=== PATIENT | female | born 1995 | race African-American/Black ===

== ENCOUNTER 2018-08-31 08:22 | Emergency (ER) | payer SELFPAY ==
[~2018-08-31] VITALS: Ht 154.9 cm; Wt 79.4 kg
--- OUTSIDE RECORDS SUMMARY | 2018-08-31 08:26 | XMS REPORT | Clinical Summary ---
Author Author [facility] Organization [facility] Address Unknown Phone Unavailable Care Team Providers Care Pressure Control Supervisor Name Role Phone PCP Unavailable Allergies Comments Active Allergy Reactions Severity Noted Date HIVES THROAT SWELLING Penicillins Hives High 06/11/2010 Medications End Date Status Medication Sig Dispensed Refills Start Date Active divalproex (DEPAKOTE) 500 Take 500 mg 0 mg 24 hr delayed released by mouth tablet daily. Active Divalproex 125 mg Take 125 mg 0 sprinkle capsule by mouth 2 times daily. Active ibuprofen (MOTRIN) 800 mg Take 1 tablet 30 tablet 0 tabletIndications: Right by mouth 7 lower quadrant abdominal every 8 hours pain as needed for Pain. Active levonorgestrel-ethinyl Take 1 tablet 28 Each 2 estradiol (LUTERA, 28,) by mouth 8 0.1-20 mg-mcg daily As tabletIndications: directed on Irregular periods the pouch. Active ferrous sulfate (FEOSOL) Take 1 tablet 30 tablet 0 325 mg (65 mg iron) by mouth 8 tabletIndications: daily (with Irregular periods breakfast) While you are bleeding. Active Problems Problem Noted Date Irregular periods 06/23/2018 Pelvic pain in female 06/05/2018 Urinary tract infection 12/09/2011 Behavioral problem 11/19/2010 Pseudoseizure Mood disorder Encounters Care Team Description Date Type Specialty Adali Muro PA Irregular periods (Primary Dx) 06/23/2018 Emergency Emergency Medicine Pelvic pain in female (Primary Dx) 06/05/2018 Emergency Emergency Medicine - 06/06/2018 after 08/30/2017 Immunizations Name Dates Previously Given Next Due DTP Diphtheria, Tetanus, 07/20/1996, 02/09/1996, 1995 Pertussis Vaccine Hepatitis B Vaccine 02/09/1996, 1995 Hib Haemophilus 07/20/1996, 02/09/1996, 1995 Influenzae Type B MMR Measles, Mumps, 07/20/1996 Rubella Vaccine Polio OPV 02/09/1996, 1995 Family History Medical History Relation Name Comments Other none apply Relation Name Status Comments Brother Alive Brother Alive Brother Alive Father Alive Maternal Grandfather Alive Maternal Grandmother Alive Mother Alive Paternal Grandfather Paternal Grandmother Social History Date Tobacco Use Types Packs/Day Years Used Never Smoker Alcohol Use Drinks/Week oz/Week Comments No Currently Estimated Date of Delivery Comments Yes Sex Assigned at Date Recorded Not on file Industry Job Start Date Occupation Not on file Not on file Not on file Travel End Travel History Travel Start No recent travel history available. Last Filed Vital Signs Time Taken Vital Sign Reading 06/23/2018 4:10 PM CDT Blood Pressure 128/77 06/23/2018 4:10 PM CDT Pulse 85 06/23/2018 4:10 PM CDT Temperature 36.7 C (98.1 F) 06/23/2018 4:10 PM CDT Respiratory Rate 18 06/23/2018 4:10 PM CDT Oxygen Saturation 100% - Inhaled Oxygen - Concentration - Weight - - Height - - Body Mass Index - Plan of Treatment Health Maintenance Due Date Last Done Comments Cervical Cancer Scrn (3 2016 Yrs) IMM Influenza Seasonal 06/01/2018 Oct to October (>/=19 yrs) Procedures Comments Procedure Name Priority Date/Time Associated Diagnosis TEST STAT 06/23/2018 4:26 PM CDT UA CHEMISTRIES STAT 06/23/2018 4:26 PM CDT BMP POC Routine 06/23/2018 3:00 PM CDT TYPE AND SCREEN STAT 06/23/2018 2:20 PM CDT CBC/DIFF STAT 06/23/2018 2:20 PM CDT HIV-1/HIV-2 ROUTINE STAT 06/23/2018 SCREENING 2:20 PM CDT U/S PELVIS LTD NON-OB STAT 06/05/2018 Pelvic pain in female 7:05 PM CDT U/S TRANSVAGINAL STAT 06/05/2018 Pelvic pain in female 7:05 PM CDT BMP POC Routine 06/05/2018 2:19 PM CDT LIPASE STAT 06/05/2018 1:59 PM CDT LIVER PROFILE STAT 06/05/2018 1:59 PM CDT CBC/DIFF STAT 06/05/2018 1:59 PM CDT UA CHEMISTRIES STAT 06/05/2018 1:59 PM CDT HIV-1/HIV-2 ROUTINE STAT 06/05/2018 SCREENING 1:59 PM CDT HCG, QUANTITATIVE STAT 06/05/2018 1:59 PM CDT TYPE AND SCREEN STAT 06/05/2018 1:24 PM CDT after 08/30/2017 Results * UA CHEMISTRIES (06/23/2018 4:26 PM CDT) Only the most recent of 2 results within the time period is included. Color Yellow BT [facility] 3 Clarity Hazy [facility] 3 Spec Echo 1.019 1.001 - 1.035 BT [facility] 3 pH 6.0 5 - 8 [facility] 3 Protein 2+ (A) NEG BT [facility] 3 Glucose Negative NEG BT [facility] 3 Ketone 1+ (A) NEG BT [facility] 3 Bilirubin Negative NEG BT [facility] 3 Nitrate Negative NEG BT [facility] 3 Urobilinogen <1.0 0.2 - 1.0 EU/dL BT [facility] 3 Leukocyte Negative NEG BT [facility] 3 Blood 3+ (A) NEG BT [facility] 3 RBC >182 (H) 0 - 4 /HPF BT [facility] 3 WBC 16 (H) 0 - 5 /HPF BT [facility] 3 Epithelial Cell 5 /HPF BT [facility] 3 Mucous Present BT [facility] 3 Specimen Urine Performing Organization Address City/State/Zipcode Phone Number MISYS [facility] 3 * TEST (06/23/2018 4:26 PM CDT) Negative BT [facility] 3 Specimen Urine Performing Organization Address [facility] [place] Phone Number MISYS [facility] 3 * BMP POC (06/23/2018 3:00 PM CDT) Only the most recent of 2 results within the time period is included. CO2 POC 27 21 - 32 mmol/L BT [facility] 1 Chloride POC 101 98 - 107 mmol/L BT [facility] 1 Potassium POC 3.9 3.50 - 5.10 mmol/L BT [facility] 1 Sodium POC 140 136 - 145 mmol/L BT [facility] 1 Glucose POC 77 74 - 106 mg/dL [facility] 1 Urea Nitrogen 8 7 - 18 mg/dL [facility] POC 1 Creatinine POC 0.7 0.6 - 1.3 mg/dL BT [facility] 1 Calcium Ionized 1.18 1.15 - 1.29 mmol/L BT [facility] POC 1 Hemoglobin POC 16.7 (H) 12.0 - 16.0 g/dL BT [facility] 1 Hematocrit POC 49.0 (H) 37.0 - 47.0 % [facility] 1 GFR, Estimated >60 mL/min/1.73 m2 BT [facility] 1 GFR, Estim, >60 mL/min/1.73 m2 [facility] Afr-Am 1 Performing Organization Address [facility] [place] Phone Number MISYS [facility] 1 * HIV-1/HIV-2 ROUTINE SCREENING (06/23/2018 2:20 PM CDT) Only the most recent of 2 results within the time period is included. HIV-1/HIV-2 Negative NEG BT [facility] 4 Performing Organization Address [facility] [place] Phone Number MISYS BT [facility] 4 * CBC/DIFF (06/23/2018 2:20 PM CDT) Only the most recent of 2 results within the time period is included. WBC 4.6 4.5 - 11.0 K/uL BT [facility] 2 RBC 4.37 4.20 - 5.40 M/uL BT [facility] 2 Hemoglobin 13.0 12.0 - 16.0 g/dL BT [facility] 2 Hematocrit 39.2 37.0 - 47.0 % BT [facility] 2 MCV 90 82 - 92 fL BT [facility] 2 MCH 29.7 27.0 - 32.0 pg BT [facility] 2 MCHC 33.2 32.0 - 36.0 g/dL BT [facility] 2 RDW 44.0 36.4 - 46.3 fL BT [facility] 2 Platelet 332 150 - 400 K/uL BT [facility] 2 Mean Platelet 11.1 9.4 - 12.4 fL [facility] Volume 2 Percent NRBC 0.0 BT [facility] 2 Absolute NRBC 0.00 BT [facility] 2 Neutrophil 49.2 34.0 - 70.0 % BT [facility] 2 Lymphocyte 42.2 20.0 - 50.0 % BT [facility] 2 Monocyte 7.1 5.0 - 12.0 % BT [facility] 2 Eosinophil 0.9 0.7 - 5.0 % BT [facility] 2 Basophil 0.4 0.1 - 1.2 % BT [facility] 2 Pct Immat Gran 0.2 0.0 - 0.5 BT [facility] 2 Neutrophil, Abs 2.28 1.56 - 6.13 K/uL BT [facility] 2 Lymphocyte, Abs 1.96 1.18 - 3.74 K/uL BT [facility] 2 Monocyte, Abs 0.33 0.24 - 0.36 K/uL BT [facility] 2 Eosinophil, Abs 0.04 0.04 - 0.36 K/uL BT [facility] 2 Basophil, Abs 0.02 0.01 - 0.08 K/uL BT [facility] 2 Absol Immat 0.01 0.00 - 0.03 K/uL BT [facility] Gran 2 Specimen Blood Performing Organization Address City/State/Zipcode Phone Number MISYS [facility] 2 * U/S PELVIS LTD NON-OB (06/05/2018 7:05 PM CDT) Impressions Performed At IMPRESSION: SMS Unremarkable pelvic ultrasound exam. Dictated By: Brandon Duarte MD, 06/05/2018 7:26 PM I have reviewed the study and agree with the findings in this report. Signed By: Igor Liu MD, 06/05/2018 8:24 PM Narrative Performed At EXAM: Transabdominal and Transvaginal Pelvic Ultrasound SMS INDICATION: pelvic pain COMPARISON: Pelvic ultrasound 10/22/2016 TECHNIQUE: Grayscale transverse and sagittal transabdominal and transvaginal images were obtained of the pelvis. Transvaginal imaging was medically necessary to better evaluate the endometrium and the adnexa. CLINICAL HISTORY: 22 year old A2; last menstrual period: 2015. FINDINGS: Uterus Orientation: Normal Size: 6.7 x 2.6 x 4.1 cm, Normal Mass: None Cervix: Normal Endometrium: Thickness: 0.7 cm, likely cyclical. Appearance:Homogeneous echotexture without focal thickening. Right ovary: Size:4.4 x 2.7 x 2.2 cm, calculated volume of 14 cc Mass/Cyst: None Peripherally oriented follicles Left ovary: Size: 4.2 x 2.8 x 2.7 cm, calculated volume of 17 cc Mass/Cyst: None Peripherally oriented follicles Adnexa: Persistent 0.8 cm right and 0.7 cm left paraovarian cysts. Cul-de-sac: No free fluid Procedure Note Interface, Rad/Mammog In - 06/05/2018 8:29 PM CDT EXAM: Transabdominal and Transvaginal Pelvic Ultrasound INDICATION: pelvic pain COMPARISON: Pelvic ultrasound 10/22/2016 TECHNIQUE: Grayscale transverse and sagittal transabdominal and transvaginal images were obtained of the pelvis. Transvaginal imaging was medically necessary to better evaluate the endometrium and the adnexa. CLINICAL HISTORY: 22 year old A2; last menstrual period: 2015. FINDINGS: Uterus Orientation: Normal Size: 6.7 x 2.6 x 4.1 cm, Normal Mass: None Cervix: Normal Endometrium: Thickness: 0.7 cm, likely cyclical. Appearance: Homogeneous echotexture without focal thickening. Right ovary: Size: 4.4 x 2.7 x 2.2 cm, calculated volume of 14 cc Mass/Cyst: None Peripherally oriented follicles Left ovary: Size: 4.2 x 2.8 x 2.7 cm, calculated volume of 17 cc Mass/Cyst: None Peripherally oriented follicles Adnexa: Persistent 0.8 cm right and 0.7 cm left paraovarian cysts. Cul-de-sac: No free fluid IMPRESSION IMPRESSION: Unremarkable pelvic ultrasound exam. Dictated By: Brandon Duarte MD, 06/05/2018 7:26 PM I have reviewed the study and agree with the findings in this report. Signed By: Igor Liu MD, 06/05/2018 8:24 PM Performing Organization Address City/State/Zipcode Phone Number SMS * U/S TRANSVAGINAL (06/05/2018 7:05 PM CDT) Impressions Performed At IMPRESSION: SMS Unremarkable pelvic ultrasound exam. Dictated By: Brandon Duarte MD, 06/05/2018 7:26 PM I have reviewed the study and agree with the findings in this report. Signed By: Igor Liu MD, 06/05/2018 8:24 PM Narrative Performed At EXAM: Transabdominal and Transvaginal Pelvic Ultrasound SMS INDICATION: pelvic pain COMPARISON: Pelvic ultrasound 10/22/2016 TECHNIQUE: Grayscale transverse and sagittal transabdominal and transvaginal images were obtained of the pelvis. Transvaginal imaging was medically necessary to better evaluate the endometrium and the adnexa. CLINICAL HISTORY: 22 year old A2; last menstrual period: 2015. FINDINGS: Uterus Orientation: Normal Size: 6.7 x 2.6 x 4.1 cm, Normal Mass: None Cervix: Normal Endometrium: Thickness: 0.7 cm, likely cyclical. Appearance:Homogeneous echotexture without focal thickening. Right ovary: Size:4.4 x 2.7 x 2.2 cm, calculated volume of 14 cc Mass/Cyst: None Peripherally oriented follicles Left ovary: Size: 4.2 x 2.8 x 2.7 cm, calculated volume of 17 cc Mass/Cyst: None Peripherally oriented follicles Adnexa: Persistent 0.8 cm right and 0.7 cm left paraovarian cysts. Cul-de-sac: No free fluid Procedure Note Interface, Rad/Mammog In - 06/05/2018 8:29 PM CDT EXAM: Transabdominal and Transvaginal Pelvic Ultrasound INDICATION: pelvic pain COMPARISON: Pelvic ultrasound 10/22/2016 TECHNIQUE: Grayscale transverse and sagittal transabdominal and transvaginal images were obtained of the pelvis. Transvaginal imaging was medically necessary to better evaluate the endometrium and the adnexa. CLINICAL HISTORY: 22 year old A2; last menstrual period: 2015. FINDINGS: Uterus Orientation: Normal Size: 6.7 x 2.6 x 4.1 cm, Normal Mass: None Cervix: Normal Endometrium: Thickness: 0.7 cm, likely cyclical. Appearance: Homogeneous echotexture without focal thickening. Right ovary: Size: 4.4 x 2.7 x 2.2 cm, calculated volume of 14 cc Mass/Cyst: None Peripherally oriented follicles Left ovary: Size: 4.2 x 2.8 x 2.7 cm, calculated volume of 17 cc Mass/Cyst: None Peripherally oriented follicles Adnexa: Persistent 0.8 cm right and 0.7 cm left paraovarian cysts. Cul-de-sac: No free fluid IMPRESSION IMPRESSION: Unremarkable pelvic ultrasound exam. Dictated By: Brandon Duarte MD, 06/05/2018 7:26 PM I have reviewed the study and agree with the findings in this report. Signed By: Igor Liu MD, 06/05/2018 8:24 PM Performing Organization Address City/State/[employer] Phone Number SMS * HCG, QUANTITATIVE (06/05/2018 1:59 PM CDT) hCG, <1 <5 mIU/mL [facility] Quantitative 1 Specimen Blood Performing Organization Address City/[facility] Phone Number [facility] 1 * LIVER PROFILE (06/05/2018 1:59 PM CDT) T Protein 8.0 6.0 - 8.3 g/dL BT [facility] 1 Albumin 4.9 3.7 - 5.3 g/dL BT [facility] 1 T Bilirubin 0.3 0.2 - 1.2 mg/dL BT [facility] 1 Alk Phos 72 34 - 104 U/L BT [facility] 1 AST 13 13 - 39 U/L BT [facility] 1 ALT 9 7 - 52 U/L BT [facility] 1 D Bilirubin 0.1 0.0 - 0.2 mg/dL BT [facility] 1 Specimen Blood Performing Organization Address City/State/[facility] Phone Number [facility] 1 * LIPASE (06/05/2018 1:59 PM CDT) Lipase 34 11 - 82 U/L BT [facility] 1 Specimen Blood Performing Organization Address City/[facility] Phone Number [facility] 1 after 08/30/2017 Insurance Type Payer Benefit Subscriber ID Effective Phone Address Plan / Dates Group [employer] SELF-PAY HC xxxxxxxxx 2015- [phone] [address] [place] [address]
--- OUTSIDE RECORDS SUMMARY | 2018-08-31 08:26 | XMS REPORT | Clinical Summary ---
Author Author [facility] Organization [facility] Address Unknown Phone Unavailable Care Team Providers Care Truck Sales Representative Name Role Phone Provider, Unknown PCP Unavailable Allergies Comments Active Allergy Reactions Severity Noted Date Penicillins 07/02/2017 Medications End Date Status Medication Sig Dispensed Refills Start Date Active metoprolol tartrate Take 25 mg by 0 (LOPRESSOR) 25 mg tablet mouth 2 (two) times a day. Active fludrocortisone 0.1 mg Take 0.1 mg 0 tablet by mouth daily. 06/06/2018 levETIRAcetam (KEPPRA) Take 1 tablet 60 tablet 0 1000 MG tablet (1,000 mg 8 total) by mouth 2 (two) times a day for 30 days. Active Problems Not on file Encounters Care Team Description Date Type Specialty Rosangela Barillas MD Seizure (Primary Dx) 05/07/2018 Emergency Emergency Medicine after 08/30/2017 Social History Date Tobacco Use Types Packs/Day Years Used Never Smoker Alcohol Use Drinks/Week oz/Week Comments Yes 1 Shots of 0.6 liquor Sex Assigned at Date Recorded Not on file Industry Job Start Date Occupation Not on file Not on file Not on file Travel End Travel History Travel Start No recent travel history available. Last Filed Vital Signs Time Taken Vital Sign Reading 05/07/2018 4:52 PM CDT Blood Pressure 128/66 05/07/2018 4:52 PM CDT Pulse 89 05/07/2018 2:17 PM CDT Temperature 37 C (98.6 F) 05/07/2018 4:52 PM CDT Respiratory Rate 18 05/07/2018 4:52 PM CDT Oxygen Saturation 99% - Inhaled Oxygen - Concentration - Weight - 05/07/2018 2:17 PM CDT Height 154.9 cm (5' 1") - Body Mass Index - Plan of Treatment Health Maintenance Due Date Last Done Comments CHLAMYDIA SCREENING 2011 CERVICAL CANCER SCREENING 2016 INFLUENZA VACCINE 04/01/2018 Procedures Comments Procedure Name Priority Date/Time Associated Diagnosis CT HEAD WO CONTRAST STAT 05/07/2018 3:03 PM CDT ZZESTIMATED GFR STAT 05/07/2018 2:47 PM CDT HCG QUALITATIVE, SERUM STAT 05/07/2018 SCREEN 2:47 PM CDT BASIC METABOLIC PANEL STAT 05/07/2018 2:47 PM CDT after 08/30/2017 Results * CT Head Wo Contrast (05/07/2018 3:03 PM CDT) Narrative Performed At EXAMINATION:[facility] WAS PERFORMED WITH ITERATIVE RECONSTRUCTION TECHNIQUE AND/OR AUTOMATED EXPOSURE CONTROL TO REDUCE RADIATION DOSE. CLINICAL HISTORY:new onset seizure COMPARISON:CT brain July 02, 2017. FINDINGS: 1. There is no acute intracranial abnormality. Specifically there is no intracranial hemorrhage, mass effect or acute infarction. 2.There is no intracranial abnormality. 3.There is minimal mucosal thickening in the ethmoid and maxillary sinuses. IMPRESSION: No significant abnormality demonstrated nor change from the prior study. [facility]-[id number] Procedure Note Interface, Radiology Results Incoming - 05/07/2018 3:13 PM CDT EXAMINATION: CT HEAD WO CONTRAST CT IMAGING WAS PERFORMED WITH ITERATIVE RECONSTRUCTION TECHNIQUE AND/OR AUTOMATED EXPOSURE CONTROL TO REDUCE RADIATION DOSE. CLINICAL HISTORY: new onset seizure COMPARISON: CT brain July 02, 2017. FINDINGS: 1. There is no acute intracranial abnormality. Specifically there is no intracranial hemorrhage, mass effect or acute infarction. 2. There is no intracranial abnormality. 3. There is minimal mucosal thickening in the ethmoid and maxillary sinuses. IMPRESSION: No significant abnormality demonstrated nor change from the prior study. [facility]-[id number] Performing Organization Address City/State/Zipcode Phone Number [facility] [address] [place] [address] * Estimated GFR (05/07/2018 2:47 PM CDT) GFR Non Af Amer 89 mL/min/1.73 m2 [facility] DEPARTMENT OF PATHOLOGY AND GENOMIC MEDICINE GFR Af Amer >90 mL/min/1.73 m2 [facility] DEPARTMENT OF Comment: PATHOLOGY AND Chronic kidney disease: <60 GENOMIC MEDICINE mL/min/1.73m2 Kidney failure: <15 mL/min/1.73m2 The estimated GFR is calculated from the IDMS-traceable Modification of Diet in Renal Disease Equation. The accuracy of the calculation is poor when the creatinine is normal. Calculated values >90 mL/min/1.73m2 are not reported. This equation has not been validated in children (<18 years), women, the elderly (>70 years), or ethnic groups other than Caucasians and Americans. Specimen Plasma specimen Performing Organization Address City/[facility] [place] [address] PATHOLOGY AND [facility] * hCG qualitative, serum screen (05/07/2018 2:47 PM CDT) hCG qualitative, serum Negative [facility] DEPARTMENT OF Comment: PATHOLOGY AND The manufacturers stated [facility] sensitivity of HcG test for serum is >/=10 mIU/ml and urine is >/=20mIU/ml. Specimen Blood Performing Organization Address [facility] [place] [address] PATHOLOGY AND [facility] * Basic metabolic panel (05/07/2018 2:47 PM CDT) Sodium 140 135 - 150 mEq/L [facility] DEPARTMENT OF PATHOLOGY AND [facility] Potassium 3.8 3.5 - 5.0 mEq/L [facility] DEPARTMENT OF PATHOLOGY AND [facility] Chloride 99 98 - 112 mEq/L [facility] DEPARTMENT OF PATHOLOGY AND [facility] CO2 27 24 - 31 mmol/L [facility] DEPARTMENT OF PATHOLOGY AND [facility] Anion gap 14@ANIO 7 - 15 mEq/L [facility] DEPARTMENT OF PATHOLOGY AND [facility] BUN 9 7 - 18 mg/dL [facility] DEPARTMENT OF PATHOLOGY AND [facility] Creatinine 0.80 0.50 - 0.90 mg/dL [facility] DEPARTMENT OF PATHOLOGY AND [facility] Glucose 79 65 - 100 mg/dL [facility] DEPARTMENT OF PATHOLOGY AND [facility] Calcium 10.0 8.3 - 10.2 mg/dL [facility] OF PATHOLOGY AND [facility] Specimen Plasma specimen Performing Organization Address City/[facility] [place] [address] PATHOLOGY AND [facility] after 08/30/2017 Advance Directives Patient has advance care planning documents on file. For more information, nolvia quinones contact: Wood Boyle [address] [place] [place] [address]
--- OUTSIDE RECORDS SUMMARY | 2018-08-31 08:27 | XMS REPORT | CCD ---
Author Author Auto Generated Organization [facility] Address Unknown Phone Unavailable Care Team Providers Care Sleeping Bag Filler Name Role Phone Aisha Recio CP Allergies, Adverse Reactions, Alerts Substance Reaction Status penicillins Active Problem List Condition Effective Dates Status Seizure Active Seizure Active Medications Medication Instructions Start Date End Date Status Celexa Substitution Allowed 09/24/2011 Ordered Depakote Substitution Allowed 09/24/2011 Ordered Vital Signs Most recent to oldest [Reference Range]: 1 2 3 Height 157.48 cm (09/24/2011 11:06:00) Temperature Oral [96.8-99.7 DegF] 98.0 DegF (09/24/2011 14:02:00) Temperature Oral [96.4-99.1 DegF] 99.1 DegF (09/24/2011 12:35:00) 98.2 DegF (09/24/2011 11:06:00) Systolic Blood Pressure [90-138 mmHg] 141 mmHg *HI* (09/24/2011 17:52:00) 138 mmHg (09/24/2011 14:02:00) Systolic Blood Pressure [90-140 mmHg] 142 mmHg *HI* (09/24/2011 12:35:00) Diastolic Blood Pressure [45-84 mmHg] 85 mmHg *HI* (09/24/2011 17:52:00) 77 mmHg (09/24/2011 14:02:00) Diastolic Blood Pressure [60-90 mmHg] 78 mmHg (09/24/2011 12:35:00) Respiratory Rate [14-20 BRMIN] 18 BRMIN (09/24/2011 17:52:00) 22 BRMIN *HI* (09/24/2011 14:02:00) 18 BRMIN (09/24/2011 12:35:00) Peripheral Pulse Rate [55-90 bpm] 75 bpm (09/24/2011 17:52:00) 88 bpm (09/24/2011 14:02:00) Peripheral Pulse Rate [60-100 bpm] 80 bpm (09/24/2011 12:35:00) Weight 70.455 kg (09/24/2011 11:06:00) Results URINALYSIS Most recent to oldest [Reference Range]: 1 UA Turbidity [Clear] Slight Cloudy (09/24/2011 14:19:00) UA Color [Yellow] Yellow *NA* (09/24/2011 14:19:00) UA pH [5.0-8.0] 7.0 (09/24/2011 14:19:00) UA Spec Grav [<=1.030] 1.015 (09/24/2011 14:19:00) UA Glucose [Negative] Negative (09/24/2011 14:19:00) UA Blood [Negative] Large *ABN* (09/24/2011 14:19:00) UA Ketones [Negative mg/dL] 15 mg/dL *ABN* (09/24/2011 14:19:00) UA Protein [Negative] Negative (09/24/2011 14:19:00) UA Urobilinogen [0.1-1.0 EU/dL] 0.2 EU/dL (09/24/2011 14:19:00) UA Bili [Negative] Negative *NA* (09/24/2011 14:19:00) UA Leuk Est [Negative] Negative (09/24/2011 14:19:00) UA Nitrite [Negative] Negative (09/24/2011 14:19:00) UA WBC [None Seen] None Seen (09/24/2011 14:19:00) UA RBC [0-2 /HPF] 21-50 /HPF *ABN* (09/24/2011 14:19:00) UA Bacteria [None Seen /HPF] Occasional /HPF (09/24/2011 14:19:00) UA Sq Epi [Few] None Seen (09/24/2011 14:19:00) UA Renal Epi None Seen (09/24/2011 14:19:00) UA Mucus [None Seen] None Seen (09/24/2011 14:19:00) Micro? Performed (09/24/2011 14:19:00) CHEMISTRY Most recent to oldest [Reference Range]: 1 Sodium Lvl [135-145 mEq/L] 137 mEq/L (09/24/2011 12:12:00) Potassium Lvl [3.5-5.1 mEq/L] 5.7 mEq/L 1 *HI* (09/24/2011 12:12:00) Chloride Lvl [95-109 mEq/L] 105 mEq/L (09/24/2011 12:12:00) CO2 [24-32 mEq/L] 22 mEq/L *LOW* (09/24/2011 12:12:00) AGAP [10.0-20.0 mEq/L] 15.7 mEq/L (09/24/2011 12:12:00) Creatinine Lvl [0.5-1.4 mg/dL] 0.3 mg/dL *LOW* (09/24/2011 12:12:00) BUN [7-22 mg/dL] 10 mg/dL (09/24/2011 12:12:00) Glucose Lvl 80 mg/dL 2 *NA* (09/24/2011 12:12:00) Calcium Lvl [8.5-10.5 mg/dL] 8.3 mg/dL *LOW* (09/24/2011 12:12:00) Phosphorus [2.5-4.5 mg/dL] 2.9 mg/dL (09/24/2011 12:12:00) Magnesium Lvl [1.8-2.4 mg/dL] 1.7 mg/dL *LOW* (09/24/2011 12:12:00) U Preg [Negative] Negative (09/24/2011 14:19:00) 1Result Comment: Specimen Moderately Hemolyzed. 2Interpretive Data: Reference Ranges : 0 - 7 days : 41 - 90 mg/dL7 days - 150 yrs : 70 - 99 mg/dL (fasting), based on the clinical recommendations of the [place] [employer]. HEMATOLOGY Most recent to oldest [Reference Range]: 1 WBC [3.7-10.4 K/CMM] 4.2 K/CMM (09/24/2011 12:12:00) RBC [4.20-5.40 M/CMM] 4.07 M/CMM *LOW* (09/24/2011 12:12:00) Hgb [12.0-16.0 g/dL] 12.8 g/dL (09/24/2011 12:12:00) Hct [36.0-48.0 %] 37.4 % (09/24/2011 12:12:00) MCV [81.0-99.0 fL] 91.8 fL (09/24/2011 12:12:00) MCH [27.0-31.0 pg] 31.4 pg *HI* (09/24/2011 12:12:00) MCHC [32.0-36.0 g/dL] 34.2 g/dL (09/24/2011 12:12:00) RDW [11.5-14.5 %] 12.6 % (09/24/2011 12:12:00) Platelet [133-450 K/CMM] 183 K/CMM (09/24/2011 12:12:00) MPV [7.4-10.4 fL] 9.8 fL (09/24/2011 12:12:00) Segs [45.0-75.0 %] 58.4 % (09/24/2011 12:12:00) Lymphocytes [20.0-40.0 %] 33.6 % (09/24/2011 12:12:00) Monocytes [2.0-12.0 %] 6.6 % (09/24/2011 12:12:00) Eosinophils [0.0-4.0 %] 0.7 % (09/24/2011 12:12:00) Basophils [0.0-1.0 %] 0.7 % (09/24/2011 12:12:00) Segs-Bands # [1.5-8.1 K/CMM] 2.5 K/CMM (09/24/2011 12:12:00) Lymphocytes # [1.0-5.5 K/CMM] 1.4 K/CMM (09/24/2011 12:12:00) Monocytes # [0.0-0.8 K/CMM] 0.3 K/CMM (09/24/2011 12:12:00) Eosinophils # [0.0-0.5 K/CMM] 0.0 K/CMM (09/24/2011 12:12:00) Basophils # [0.0-0.2 K/CMM] 0.0 K/CMM (09/24/2011 12:12:00)
--- OUTSIDE RECORDS SUMMARY | 2018-08-31 08:27 | XMS REPORT | Continuity of Care Document ---
Author Author [facility] Interface Address Unknown Phone Unavailable Problems Problem Status Onset Date Classification Date Reported Comments Source Irregular periods Active 06/23/2018 Problem 07/23/2018 [facility] Pelvic pain in female Active 06/05/2018 Problem 07/23/2018 [facility] ACUTE APPENDICITIS WITH GENERALIZED PERITONITIS Active 03/29/2014 Condition 03/29/2014 [facility] SEIZURES Active 05/15/[address] [facility] SYNCOPE Active 05/05/[address] [facility] PEDI/CCL/R Active 05/05/[address] [facility] SEZURES Active 01/04/[address] [facility] Urinary tract infection Active 12/09/2011 Problem 07/23/2018 [facility] AMS Active 09/24/[address] [facility] Seizure Active Problem 06/25/[address] [facility] Pseudoseizure Active Problem 07/23/2018 [facility] Mood disorder Active Problem 07/23/2018 [facility] FEBRILE CONVULSIONS NOS Active [facility] Medications Medication Details Route Status Patient Instructions Ordering Provider Order Date Source Levonorgestrel-Ethinyl Estradiol 0.1 Mg-20 McG Tablet Lutera (28) 0.1 Mg-20 McG Tablet Take 1 tablet by mouth daily As directed on the pouch. Oral Active 06/23/2018 [facility] Ferrous Sulfate 325 Mg (65 Mg Iron) Tablet Feosol 325 Mg (65 Mg Iron) Tablet Take 1 tablet by mouth daily (with breakfast) While you are bleeding. Oral Active 06/23/2018 [facility] Ibuprofen 800 Mg Tablet Take 1 tablet by mouth every 8 hours as needed for Pain. 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 Depakote Sprinkles 125 mg, 1 cap, Route: PO, Drug form: CAP, Daily, Dosing Weight 70.1, kg, Start date: 06/24/12 9:00:00, Duration: 30 day, Stop date: 07/23/12 9:00:00 PO No Longer Active [facility] 06/24/[address] [facility] Depakote ER 500 mg, 1 tab, Route: PO, Drug form: ERTAB, Daily, Dosing Weight 70.1, kg, Start date: 06/24/12 9:00:00, Duration: 30 day, Stop date: 07/23/12 9:00:00 PO No Longer Active [facility] 06/24/[address] [facility] influenza virus vaccine, inactivated 0.5 ml, Route: IM, Drug Form: INJ, ONCALL, Start date: 06/23/12 20:30:00, Duration: 0 IM No Longer Active [facility] 06/24/[address] [facility] Tylenol 650 mg, 2 tab, Route: PO, Drug form: TAB, Q4H, PRN Pain Score 1-3, Start date: 06/23/12 19:41:00, Duration: 30 day, Stop date: 07/23/12 19:40:00 PO No Longer Active [facility] 06/24/[address] [facility] propranolol 80 mg oral capsule, extended release 80 mg, 1 cap, PO, Daily, 30 cap, 3, 3, Substitution Allowed PO Active [facility] 06/23/[address] [facility] ondansetron 4 mg, 5 mL, Route: PO, Drug form: SOLN, Q6H, Dosing Weight 70.1, kg, PRN Nausea & Vomiting, Start date: 06/23/12 15:22:00, Duration: 30 day, Stop date: 07/23/12 15:21:00 PO No Longer Active [facility] 06/23/[address] [facility] acetaminophen 650 mg, 20.3 mL, Route: PO, Drug form: LIQ, Q4H, Dosing Weight 70.1, kg, PRN Pain Score 1-3, Start date: 06/23/12 15:22:00, Duration: 30 day, Stop date: 07/23/12 15:21:00 PO No Longer Active [facility] 06/23/[address] [facility] D5W 1/2NS + KCL 20mEq/L 1000ml (Premix) 1,000 mL 1,000 mL, Rate: 100 ml/hr, Infuse over: 10 hr, Route: IV, kg, Total Volume: 1,000, Start date: 06/23/12 15:22:00, Duration: 30 day, Stop date: 07/23/12 15:21:00 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 [facility] propranolol 80 mg oral tablet 80 mg, 1 tab, PO, BID, 60 tab, Substitution Allowed, TAB PO No Longer Active 06/23/[address] [facility] Florinef Acetate 0.1 mg oral tablet 0.1 mg, 1 tab, PO, Daily, 30 tab, Substitution Allowed, TAB PO Active 06/23/[address] [facility] Depakote Sprinkles 125 mg, 1 cap, Route: PO, Drug form: CAP, Daily, Start date: 01/07/12 19:00:00, Duration: 30 day, Stop date: 02/05/12 19:00:00 PO No Longer Active Reza 01/08/[address] [facility] Depakote ER 250 mg, 1 tab, Route: PO, Drug form: ERTAB, Daily, Start date: 01/07/12 19:00:00, Stop date: 02/05/12 19:00:00 PO No Longer Active Shira 01/08/[address] [facility] Celexa 10 mg, 1 tab, Route: PO, Drug form: TAB, QAM, Start date: 01/07/12 7:00:00, Duration: 30 day, Stop date: 02/05/12 7:00:00 PO No Longer Active Reza 01/07/[address] [facility] Cerebyx 1,254 mg, 25.08 mL, Route: IV, Drug form: INJ, PRN, PRN Seizure, Start date: 01/07/12 6:24:00, Duration: 30 day, Stop date: 02/06/12 6:23:00 IV No Longer Active Chamdl 01/07/[address] [facility] Diastat 15 mg, 1.5 mL, Route: NE, Drug form: GEL, PRN, PRN Seizure, Start date: 01/07/12 6:22:00, Duration: 30 day, Stop date: 02/06/12 6:21:00 NE No Longer Active Chahil 01/07/[address] [facility] Valium 5 mg, 1 mL, Route: IV, Drug form: INJ, PRN, PRN Seizure, Start date: 01/07/12 6:19:00, Duration: 30 day, Stop date: 02/06/12 6:18:00 IV No Longer Active Chahil 01/07/[address] [facility] Ativan 6 mg, 3 mL, Route: IV, Drug form: INJ, PRN, PRN Seizure, Start date: 01/06/12 23:49:00, Duration: 30 day, Stop date: 02/05/12 23:48:00 IV No Longer Active Reza 01/07/[address] [facility] Depakote ER 500 mg, 2 tab, Route: PO, Drug form: ERTAB, Daily, Start date: 01/06/12 19:00:00, Stop date: 02/03/12 19:00:00 PO No Longer Active Shira 01/07/[address] [facility] Depakote ER 500 mg, 2 tab, Route: PO, Drug form: ERTAB, ONCE, Start date: 01/05/12 21:00:00, Stop date: 01/05/12 21:00:00 PO No Longer Active Shira 01/06/[address] [facility] Depakote Sprinkles 125 mg, 1 cap, Route: PO, Drug form: CAP, Daily, Start date: 01/05/12 19:00:00, Duration: 30 day, Stop date: 02/03/12 19:00:00 PO No Longer Active Reza 01/06/[address] [facility] Depakote ER 500 mg, 1 tab, Route: PO, Drug form: ERTAB, Daily, Start date: 01/05/12 19:00:00, Duration: 30 day, Stop date: 02/03/12 19:00:00 PO No Longer Active Reza 01/06/[address] [facility] Celexa 10 mg, 1 tab, Route: PO, Drug form: TAB, QAM, Start date: 01/05/12 7:00:00, Duration: 30 day, Stop date: 02/03/12 7:00:00 PO No Longer Active Reza 01/05/[address] [facility] Synera 1 patch, Route: TOP, Drug Form: FILM, PRN, PRN Procedure, Start date: 01/05/12 4:12:00, Duration: 30 day, Stop date: 02/04/12 4:11:00 TOP No Longer Active Reza 01/05/[address] [facility] ethyl chloride topical 1 spray, Route: TOP, PRN, Drug form: SPRY PRN Procedure, Start date: 01/05/12 4:11:00, Duration: 30 day, Stop date: 02/04/12 4:10:00 TOP No Longer Active Reza 01/05/[address] [facility] Ativan 6 mg, 3 mL, Route: IV, Drug form: INJ, PRN, PRN Seizure, Start date: 01/05/12 4:09:00, Duration: 30 day, Stop date: 02/04/12 4:08:00 IV No Longer Active Reza 01/05/[address] [facility] Celexa Substitution Allowed Active 09/24/[address] [facility] Depakote Substitution Allowed Active 09/24/[address] [facility] Celexa 10 mg oral tablet 10 mg, 1 tab, PO, Daily, 30 tab, Substitution Allowed, TAB PO Active 09/20/[address] [facility] Depakote Sprinkles Substitution Allowed Active 09/20/[address] [facility] Depakote ER 500 mg oral tablet, extended release 500 mg, 1 tab, PO, Daily, 30 tab, Substitution Allowed, ERTAB PO Active 09/20/[address] [facility] Divalproex Er 500 Mg Tablet,Extended Release 24 Hr Take 500 mg by mouth daily. Oral Active [facility] Divalproex 125 Mg Capsule,Delayed Release Sprinkle Take 125 mg by mouth 2 times daily. Oral Active [facility] Allergies, Adverse Reactions, Alerts Substance Category Reaction Severity Reaction type Status Date Reported Comments Source Penicillins Hives High Propensity to adverse reactions to drug Active 06/11/2010 [facility] PENICILLIN Drug allergy PENICILLIN 03/29/2014 [facility] penicillins drug allergy Allergy Active [facility] Immunizations Immunization Date Given Site Status Last Updated Comments Source influenza virus vaccine, inactivated 06/24/[address] [facility] DTP Diphtheria, Tetanus, Pertussis Vaccine 07/20/1996 [facility] Hib Haemophilus Influenzae Type B 07/20/1996 [facility] MMR Measles, Mumps, Rubella Vaccine 07/20/1996 completed [facility] Hepatitis B Vaccine 02/09/1996 [facility] DTP Diphtheria, Tetanus, Pertussis Vaccine 02/09/1996 completed [facility] Hib Haemophilus Influenzae Type B 02/09/1996 completed [facility] Polio OPV 02/09/1996 completed [facility] DTP Diphtheria, Tetanus, Pertussis Vaccine 1995 completed [facility] Hib Haemophilus Influenzae Type B 1995 completed [facility] Polio OPV 1995 completed [facility] Hepatitis B Vaccine 1995 completed [facility] Results Order Name Results Value Reference Range Date Interpretation Comments Source HIV-1/HIV-2 ROUTINE SCREENING HIV-1/HIV-2 Negative NEG 06/23/2018 [facility] UA CHEMISTRIES Color Yellow 06/23/2018 [facility] UA CHEMISTRIES Clarity Hazy 06/23/2018 [facility] UA CHEMISTRIES Spec [place] 1.019 1.001 - 1.035 06/23/2018 [facility] UA CHEMISTRIES pH 6.0 5 - 8 06/23/2018 [facility] UA CHEMISTRIES Protein 2+ NEG 06/23/2018 [facility] UA CHEMISTRIES Glucose Negative NEG 06/23/2018 [facility] UA CHEMISTRIES Ketone 1+ NEG 06/23/2018 [facility] UA CHEMISTRIES Bilirubin Negative NEG 06/23/2018 [facility] UA CHEMISTRIES Nitrate Negative NEG 06/23/2018 [facility]A CHEMISTRIES Urobilinogen <1.0 0.2 - 1 06/23/2018 [facility] UA CHEMISTRIES Leukocyte Negative NEG 06/23/2018 [facility] UA CHEMISTRIES Blood 3+ NEG 06/23/2018 [facility] UA CHEMISTRIES RBC >182 0 - 4 06/23/2018 [facility] UA CHEMISTRIES WBC 16 0 - 5 06/23/2018 [facility] UA CHEMISTRIES Epithelial Cell 5 /HPF 06/23/2018 [facility] UA CHEMISTRIES Mucous Present 06/23/2018 [facility] UA CHEMISTRIES Lab Interpretation Abnormal 06/23/2018 [facility] TEST Negative 06/23/2018 [facility] CBC/DIFF WBC 4.6 K/uL 4.5 - 11 06/23/2018 [facility] CBC/DIFF RBC 4.37 4.20 - 5.40 06/23/2018 [facility] CBC/DIFF Hemoglobin 13.0 g/dL 12 - 16 06/23/2018 [facility] CBC/DIFF Hematocrit 39.2 % 37 - 47 06/23/2018 [facility] CBC/DIFF MCV 90 fL 82 - 92 06/23/2018 [facility] CBC/DIFF MCH 29.7 pg 27 - 32 06/23/2018 [facility] CBC/DIFF MCHC 33.2 g/dL 32 - 36 06/23/2018 [facility] CBC/DIFF RDW 44.0 fL 36.4 - 46.3 06/23/2018 [facility] CBC/DIFF Platelet 332 K/uL 150 - 400 06/23/2018 [facility] CBC/DIFF Mean Platelet Volume 11.1 fL 9.4 - 12.4 06/23/2018 [facility] CBC/DIFF Percent NRBC 0.0 06/23/2018 [facility] CBC/DIFF Absolute NRBC 0.00 06/23/2018 [facility] CBC/DIFF Neutrophil 49.2 % 34 - 70 06/23/2018 [facility] CBC/DIFF Lymphocyte 42.2 % 20 - 50 06/23/2018 [facility] CBC/DIFF Monocyte 7.1 % 5 - 12 06/23/2018 [facility] CBC/DIFF Eosinophil 0.9 % 0.7 - 5 06/23/2018 [facility] CBC/DIFF Basophil 0.4 % 0.1 - 1.2 06/23/2018 [facility] CBC/DIFF Pct Immat Gran 0.2 0.0 - 0.5 06/23/2018 [facility] CBC/DIFF Neutrophil, Abs 2.28 K/uL 1.56 - 6.13 06/23/2018 [facility] CBC/DIFF Lymphocyte, Abs 1.96 K/uL 1.18 - 3.74 06/23/2018 [facility] CBC/DIFF Monocyte, Abs 0.33 K/uL 0.24 - 0.36 06/23/2018 [facility] CBC/DIFF Eosinophil, Abs 0.04 K/uL 0.04 - 0.36 06/23/2018 [facility] CBC/DIFF Basophil, Abs 0.02 K/uL 0.01 - 0.08 06/23/2018 [facility] CBC/DIFF Absol Immat Gran 0.01 K/uL 0 - 0.03 06/23/2018 [facility] POC CO2 POC 27 mmol/L 21 - 32 06/23/2018 [facility] POC Chloride POC 101 mmol/L 98 - 107 06/23/2018 [facility] POC Potassium POC 3.9 mmol/L 3.5 - 5.1 06/23/2018 [facility] POC Sodium POC 140 mmol/L 136 - 145 06/23/2018 [facility] POC Glucose POC 77 mg/dL 74 - 106 06/23/2018 [facility] POC Urea Nitrogen POC 8 mg/dL 7 - 18 06/23/2018 [facility] POC Creatinine POC 0.7 mg/dL 0.6 - 1.3 06/23/2018 [facility] POC Calcium Ionized POC 1.18 mmol/L 1.15 - 1.29 06/23/2018 [facility] POC Hemoglobin POC 16.7 g/dL 12 - 16 06/23/2018 [facility] POC Hematocrit POC 49.0 % 37 - 47 06/23/2018 [facility] POC GFR, Estimated >60 mL/min/1.73 m2 06/23/2018 [facility] POC GFR, Estim, Afr-Am >60 mL/min/1.73 m2 06/23/2018 [facility] POC Lab Interpretation Abnormal 06/23/2018 [email or web address] [facility] NON-OB <p>IMPRESSION: </p><p> </p><p>Unremarkable pelvic ultrasound exam.</p><p> </p><p>Dictated By: Brandon Duarte MD, 06/05/2018 7:26 PM</p><p> </p><p>I have reviewed the study and agree with the findings in this report.</p><p> </p><p>Signed By: Igor Liu MD, 06/05/2018 8:24 PM</p><p> </p> IMPRESSION: Unremarkable pelvic ultrasound exam. Dictated By: Brandon Duarte MD, 06/05/2018 7:26 PM I have reviewed the study and agree with the findings in this report. Signed By: Iogr Liu MD, 06/05/2018 8:24 PM 06/06/2018 [email or web address] [facility] NON-OB <p>EXAM: Transabdominal and Transvaginal Pelvic Ultrasound</p><p>INDICATION: pelvic pain </p><p>COMPARISON: Pelvic ultrasound 10/22/2016 </p><p>TECHNIQUE: Grayscale transverse and sagittal transabdominal and</p><p>transvaginal images were obtained of the pelvis. Transvaginal imaging</p><p>was medically necessary to better evaluate the en dometrium and the</p><p>adnexa.</p><p> </p><p>CLINICAL HISTORY:</p><p>22 year old A2; last menstrual period: 2015.</p><p> </p><p>FINDINGS: </p><p> </p><p>Uterus</p><p>Orientation: Normal</p><p>Size: 6.7 x 2.6 x 4.1 cm, Normal</p><p>Mass: None</p><p>Cervix: Normal </p><p> </p><p>Endometrium: </p><p>Thickness: 0.7 cm, likely cyclical. </p><p>Appearance:Homogeneous echotexture without focal thickening.</p><p> </p><p>Right ovary: </p><p>Size:4.4 x 2.7 x 2.2 cm, calculated volume of 14 cc</p><p>Mass/Cyst: None</p><p>Peripherally oriented follicles</p><p> </p><p>Left ovary:</p><p>Size: 4.2 x 2.8 x 2.7 cm, calculated volume of 17 cc</p><p>Mass/Cyst: None</p><p>Peripherally oriented follicles</p><p> </p><p>Adnexa: Persistent 0.8 cm right and 0.7 cm left paraovarian cysts.</p><p> </p><p>Cul-de-sac: No free fluid</p><p> </p> EXAM: Transabdominal and Transvaginal Pelvic Ultrasound INDICATION: [...] left paraovarian cysts. Cul-de-sac: No free fluid 06/06/2018 [facility] NON-OB <p styleCode="header">Interface, Rad/Mammog In - 06/05/2018 8:29 PM CDT</p><p><span>EXAM: Transabdominal and Transvaginal Pelvic Ultrasound</span>
<span>INDICATION: pelvic pain </span>
<span>COMPARISON: Pelvic ultrasound 10/22/2016 </span>
<span>TECHNIQUE: Grayscale transverse and sagittal transabdominal and</span>
<span>transvaginal images were obtained of the pelvis. Transvaginal imaging</span>
<span>was medically necessary to better evaluate the endometrium and the</span>
<span>adnexa.</span>

<span>CLINICAL HISTORY:</span>
<span>22 year old A2; last menstrual period: 2015.</span>

<span>FINDINGS: </span>

<span>Uterus</span>
<span>Orientation: Normal</span>
< span>Size: 6.7 x 2.6 x 4.1 cm, Normal</span>
<span>Mass: None</span>
<span>Cervix: Normal </span>

<span>Endometrium: </ span>
<span>Thickness: 0.7 cm, likely cyclical. </span>
<span>Appearance: Homogeneous echotexture without focal thickening.</span>

<span>Right ovary: </span>
<span>Size: 4.4 x 2.7 x 2.2 cm, calculated volume of 14 cc</span>
<span>Mass/Cyst: None</span>
<span>Peripherally oriented follicles</span>

<span>Left ovary:</span>
<span>Size: 4.2 x 2.8 x 2.7 cm, calculated volume of 17 cc</span>
<span>Mass/Cyst: None</span>
<span>Peripherally oriented follicles</span>

<span>Adnexa: Persistent 0.8 cm right and 0.7 cm left paraovarian cysts.</span>

<span>Cul-de-sac: No free fluid</span>

<span>IMPRESSION</span>
<span>IMPRESSION: </span>

<span>Unremarkable pelvic ultrasound exam.</span>

<span>Dictated By: Brandon Duarte MD, 06/05/2018 7:26 PM</span>

<span>I have reviewed the study and agree with the findings in this report.</span>

<span>Signed By: Igor Liu MD, 06/05/2018 8:24 PM</span>
</p> Interface, Rad/Mammog In - 06/05/2018 8:29 PM [...] By: Igor Liu MD, 06/05/2018 8:24 PM 06/06/2018 [facility] TRANSVAG[facility] <p>IMPRESSION: </p><p> </p><p>Unremarkable pelvic ultrasound exam.</p><p> </p><p>Dictated By: Brandon Duarte MD, 06/05/2018 7:26 PM</p><p> </p><p>I have reviewed the study and agree with the findings in this report.</p><p> </p><p>Signed By: Igor Liu MD, 06/05/2018 8:24 PM</p><p> </p> IMPRESSION: Unremarkable pelvic ultrasound exam. Dictated By: Brandon Duarte MD, 06/05/2018 7:26 PM I have reviewed the study and agree with the findings in this report. Signed By: Igor Liu MD, 06/05/2018 8:24 PM 06/06/2018 [facility]SV[facility] <p>EXAM: Transabdominal and Transvaginal Pelvic Ultrasound</p><p>INDICATION: pelvic pain </p><p>COMPARISON: Pelvic ultrasound 10/22/2016 </p><p>TECHNIQUE: Grayscale transverse and sagittal transabdominal and</p><p>transvaginal images were obtained of the pelvis. Transvaginal imaging</p><p>was medically necessary to better evaluate the en dometrium and the</p><p>adnexa.</p><p> </p><p>CLINICAL HISTORY:</p><p>22 year old A2; last menstrual period: 2015.</p><p> </p><p>FINDINGS: </p><p> </p><p>Uterus</p><p>Orientation: Normal</p><p>Size: 6.7 x 2.6 x 4.1 cm, Normal</p><p>Mass: None</p><p>Cervix: Normal </p><p> </p><p>Endometrium: </p><p>Thickness: 0.7 cm, likely cyclical. </p><p>Appearance:Homogeneous echotexture without focal thickening.</p><p> </p><p>Right ovary: </p><p>Size:4.4 x 2.7 x 2.2 cm, calculated volume of 14 cc</p><p>Mass/Cyst: None</p><p>Peripherally oriented follicles</p><p> </p><p>Left ovary:</p><p>Size: 4.2 x 2.8 x 2.7 cm, calculated volume of 17 cc</p><p>Mass/Cyst: None</p><p>Peripherally oriented follicles</p><p> </p><p>Adnexa: Persistent 0.8 cm right and 0.7 cm left paraovarian cysts.</p><p> </p><p>Cul-de-sac: No free fluid</p><p> </p> EXAM: Transabdominal and Transvaginal Pelvic Ultrasound INDICATION: [...] left paraovarian cysts. Cul-de-sac: No free fluid 06/06/2018 [facility] TRANSV[facility] <p styleCode="header">Interface, Rad/Mammog In - 06/05/2018 8:29 PM CDT</p><p><span>EXAM: Transabdominal and Transvaginal Pelvic Ultrasound</span>
<span>INDICATION: pelvic pain </span>
<span>COMPARISON: Pelvic ultrasound 10/22/2016 </span>
<span>TECHNIQUE: Grayscale transverse and sagittal transabdominal and</span>
<span>transvaginal images were obtained of the pelvis. Transvaginal imaging</span>
<span>was medically necessary to better evaluate the endometrium and the</span>
<span>adnexa.</span>

<span>CLINICAL HISTORY:</span>
<span>22 year old A2; last menstrual period: 2015.</span>

<span>FINDINGS: </span>

<span>Uterus</span>
<span>Orientation: Normal</span>
< span>Size: 6.7 x 2.6 x 4.1 cm, Normal</span>
<span>Mass: None</span>
<span>Cervix: Normal </span>

<span>Endometrium: </ span>
<span>Thickness: 0.7 cm, likely cyclical. </span>
<span>Appearance: Homogeneous echotexture without focal thickening.</span>

<span>Right ovary: </span>
<span>Size: 4.4 x 2.7 x 2.2 cm, calculated volume of 14 cc</span>
<span>Mass/Cyst: None</span>
<span>Peripherally oriented follicles</span>

<span>Left ovary:</span>
<span>Size: 4.2 x 2.8 x 2.7 cm, calculated volume of 17 cc</span>
<span>Mass/Cyst: None</span>
<span>Peripherally oriented follicles</span>

<span>Adnexa: Persistent 0.8 cm right and 0.7 cm left paraovarian cysts.</span>

<span>Cul-de-sac: No free fluid</span>

<span>IMPRESSION</span>
<span>IMPRESSION: </span>

<span>Unremarkable pelvic ultrasound exam.</span>

<span>Dictated By: Brandon Duarte MD, 06/05/2018 7:26 PM</span>

<span>I have reviewed the study and agree with the findings in this report.</span>

<span>Signed By: Igor Liu MD, 06/05/2018 8:24 PM</span>
</p> Interface, Rad/Mammog In - 06/05/2018 8:29 PM [...] By: Igor Liu MD, 06/05/2018 8:24 PM 06/06/2018 [facility]/ TRANSVAGINAL IMPRESSION: Unremarkable pelvic ultrasound exam. Dictated By: Brandon Duarte MD, 06/05/2018 7:26 PM I have reviewed the study and agree with the findings in this report. Signed By: Igor Liu MD, 06/05/2018 8:24 PM EXAM: Transabdominal and Transvaginal Pelvic Ultrasound INDICATION: [...] left paraovarian cysts. Cul-de-sac: No free fluid Interface, Rad/Mammog In - 06/05/2018 8:29 PM [...] By: Igor Liu MD, 06/05/2018 8:24 PM 06/06/2018 [facility] NON-OB IMPRESSION: Unremarkable pelvic ultrasound exam. Dictated By: Brandon Duarte MD, 06/05/2018 7:26 PM I have reviewed the study and agree with the findings in this report. Signed By: Igor Liu MD, 06/05/2018 8:24 PM EXAM: Transabdominal and Transvaginal Pelvic Ultrasound INDICATION: [...] left paraovarian cysts. Cul-de-sac: No free fluid Interface, Rad/Mammog In - 06/05/2018 8:29 PM [...] By: Igor Liu MD, 06/05/2018 8:24 PM 06/06/2018 [facility] HIV-1/HIV-2 ROUTINE SCREENING HIV-1/HIV-2 Negative NEG 06/06/2018 [facility] HCG, QUANTITATIVE hCG, Quantitative <1 <5 mIU/mL 06/05/2018 [facility] UA CHEMISTRIES Color Yellow 06/05/2018 [facility]A CHEMISTRIES Clarity Hazy 06/05/2018 [facility] UA CHEMISTRIES Spec [place] 1.020 1.001 - 1.035 06/05/2018 [facility] UA CHEMISTRIES pH 6.0 5 - 8 06/05/2018 [facility] UA CHEMISTRIES Protein 1+ NEG 06/05/2018 [facility]A CHEMISTRIES Glucose Negative NEG 06/05/2018 [facility] CHEMI[facility]ES Ketone Negative NEG 06/05/2018 [facility]A CHEMISTRIES Bilirubin Negative NEG 06/05/2018 [facility]A CHEMI[facility] Nitrate Negative NEG 06/05/2018 [facility] Urobilinogen <1.0 0.2 - 1 06/05/2018 [facility] UA CHEMISTRIES Leukocyte 2+ NEG 06/05/2018 [facility] UA CHEMISTRIES Blood 2+ NEG 06/05/2018 [facility] UA CHEMISTRIES RBC 8 0 - 4 06/05/2018 [facility] UA CHEMISTRIES WBC 12 0 - 5 06/05/2018 [facility] UA CHEMISTRIES Bacteria Few 06/05/2018 [facility]A CHEMISTRIES Epithelial Cell 26 /HPF 06/05/2018 [facility]A CHEMISTRIES Mucous Present 06/05/2018 [facility]A [facility]MI[facility] Lab Interpretation Abnormal 06/05/2018 [facility] LIPASE Lipase 34 U/L 11 - 82 06/05/2018 [facility] LIVER PROFILE T Protein 8.0 g/dL 6 - 8.3 06/05/2018 [facility] LIVER PROFILE Albumin 4.9 g/dL 3.7 - 5.3 06/05/2018 [facility] LIVER PROFILE T Bilirubin 0.3 mg/dL 0.2 - 1.2 06/05/2018 [facility] LIVER PROFILE Alk Phos 72 U/L 34 - 104 06/05/2018 [facility] LIVER PROFILE AST 13 U/L 13 - 39 06/05/2018 [facility] LIVER PROFILE ALT 9 U/L 7 - 52 06/05/2018 [facility] LIVER PROFILE D Bilirubin 0.1 mg/dL 0 - 0.2 06/05/2018 [facility] CBC/DIFF WBC 4.4 K/uL 4.5 - 11 06/05/2018 [facility] CBC/DIFF RBC 4.61 4.20 - 5.40 06/05/2018 [facility] CBC/DIFF Hemoglobin 13.5 g/dL 12 - 16 06/05/2018 [facility] CBC/DIFF Hematocrit 41.9 % 37 - 47 06/05/2018 [facility] CBC/DIFF MCV 91 fL 82 - 92 06/05/2018 [facility] CBC/DIFF MCH 29.3 pg 27 - 32 06/05/2018 [facility] CBC/DIFF MCHC 32.2 g/dL 32 - 36 06/05/2018 [facility] CBC/DIFF RDW 45.1 fL 36.4 - 46.3 06/05/2018 [facility] CBC/DIFF Platelet 344 K/uL 150 - 400 06/05/2018 [facility] CBC/DIFF Mean Platelet Volume 11.1 fL 9.4 - 12.4 06/05/2018 [facility] CBC/DIFF Percent NRBC 0.0 06/05/2018 [facility] CBC/DIFF Absolute NRBC 0.00 06/05/2018 [facility] CBC/DIFF Neutrophil 41.8 % 34 - 70 06/05/2018 [facility] CBC/DIFF Lymphocyte 48.5 % 20 - 50 06/05/2018 [facility] CBC/DIFF Monocyte 7.7 % 5 - 12 06/05/2018 [facility] CBC/DIFF Eosinophil 0.9 % 0.7 - 5 06/05/2018 [facility] CBC/DIFF Basophil 1.1 % 0.1 - 1.2 06/05/2018 [facility] CBC/DIFF Pct Immat Gran 0.0 0.0 - 0.5 06/05/2018 [facility] CBC/DIFF Neutrophil, Abs 1.83 K/uL 1.56 - 6.13 06/05/2018 [facility] CBC/DIFF Lymphocyte, Abs 2.13 K/uL 1.18 - 3.74 06/05/2018 [facility] CBC/DIFF Monocyte, Abs 0.34 K/uL 0.24 - 0.36 06/05/2018 [facility] CBC/DIFF Eosinophil, Abs 0.04 K/uL 0.04 - 0.36 06/05/2018 [facility] CBC/DIFF Basophil, Abs 0.05 K/uL 0.01 - 0.08 06/05/2018 [facility] CBC/DIFF Absol Immat Gran 0.00 K/uL 0 - 0.03 06/05/2018 [facility] CBC/DIFF Lab Interpretation Abnormal 06/05/2018 [facility] POC CO2 POC 26 mmol/L 21 - 32 06/05/2018 [facility] POC Chloride POC 102 mmol/L 98 - 107 06/05/2018 [facility] POC Potassium POC 4.1 mmol/L 3.5 - 5.1 06/05/2018 [facility] POC Sodium POC 140 mmol/L 136 - 145 06/05/2018 [facility] POC Glucose POC 96 mg/dL 74 - 106 06/05/2018 [facility] POC Urea Nitrogen POC 10 mg/dL 7 - 18 06/05/2018 [facility] POC Creatinine POC 0.7 mg/dL 0.6 - 1.3 06/05/2018 [facility] POC Calcium Ionized POC 1.21 mmol/L 1.15 - 1.29 06/05/2018 [facility] POC Hemoglobin POC 16.0 g/dL 12 - 16 06/05/2018 [facility] POC Hematocrit POC 47.0 % 37 - 47 06/05/2018 [facility] POC GFR, Estimated >60 mL/min/1.73 m2 06/05/2018 [facility] POC GFR, Estim, Afr-Am >60 mL/min/1.73 m2 06/05/2018 [facility] BLOOD BANK RESULTS Antibody Scrn Negative (06/23/2012 15:09:00) 06/23/[address] [facility] BLOOD BANK RESULTS ABO/Rh O POS 06/23/[address] [facility] CHEMISTRY Phosphorus 4.2 mg/dL 2.5 - 4.5 06/23/[address] [facility] CHEMISTRY Magnesium Lvl 1.5 mg/dL 1.8 - 2.4 06/23/[address] [facility] CHEMISTRY eGFR 96 mL/min/1.73m2 06/23/2012 NA 1Result Comment: The eGFR is calculated using the modified Cornejo equation 0.413 x Height (cm) /Serum Creatinine (mg/dL). [facility] CHEMISTRY AST 28 unit/L 0 - 37 06/23/[address] [facility] CHEMISTRY ALT 20 unit/L 0 - 65 06/23/[address] [facility] CHEMISTRY Chloride Lvl 105 meq/L 95 - 109 06/23/[address] [facility] CHEMISTRY CO2 21 meq/L 24 - 32 06/23/[address] [facility] CHEMISTRY Bili Total 0.4 mg/dL 0.2 - 1.3 06/23/[address] [facility] CHEMISTRY Calcium Lvl 8.4 mg/dL 8.5 - 10.5 06/23/[address] [facility] CHEMISTRY BUN 9 mg/dL 7 - 22 06/23/[address] [facility] CHEMISTRY Creatinine Lvl 0.7 mg/dL 0.5 - 1.4 06/23/[address] [facility] CHEMISTRY Alk Phos 60 unit/L 39 - 136 06/23/[address] [facility] CHEMISTRY Albumin Lvl 3.3 g/dL 3.5 - 5.0 06/23/[address] [facility] CHEMISTRY Glucose Lvl 66 mg/dL 70 - 99 06/23/2012 LOW 2Interpretive Data: Adult reference range values reflect the clinical guidelines of the [place] [employer]. [facility] CHEMISTRY Total Protein 6.7 g/dL 6.4 - 8.4 06/23/[address] [facility] CHEMISTRY Sodium Lvl 139 meq/L 135 - 145 06/23/[address] [facility] CHEMISTRY Potassium Lvl 4.0 meq/L 3.5 - 5.1 06/23/[address] [facility] CHEMISTRY AGAP 17.0 meq/L 10.0 - 20.0 06/23/[address] [facility] CHEMISTRY A/G Ratio 1.0 0.7 - 1.6 06/23/[address] [facility] CHEMISTRY B/C Ratio 13 6 - 25 06/23/[address] [facility] CHEMISTRY Globulin 3.4 g/dL 2.0 - 4.0 06/23/[address] [facility] HEMATOLOGY Basophils 0.7 % 0.0 - 1.0 06/23/[address] [facility] HEMATOLOGY Monocytes 7.1 % 2.0 - 12.0 06/23/[address] [facility] HEMATOLOGY Lymphocytes 43.2 % 20.0 - 40.0 06/23/[address] [facility] HEMATOLOGY Segs 48.8 % 45.0 - 75.0 06/23/[address] [facility] HEMATOLOGY Eosinophils 0.2 % 0.0 - 4.0 06/23/[address] [facility] HEMATOLOGY Eosinophils # 0.0 K/CMM 0.0 - 0.5 06/23/[address] [facility] HEMATOLOGY Basophils # 0.0 K/CMM 0.0 - 0.2 06/23/[address] [facility] HEMATOLOGY Monocytes # 0.3 K/CMM 0.0 - 0.8 06/23/2012 [facility] HEMATOLOGY Lymphocytes # 1.9 K/CMM 1.0 - 5.5 06/23/2012 [facility] HEMATOLOGY Segs-Bands # 2.1 K/CMM 1.5 - 8.1 06/23/2012 [facility] HEMATOLOGY WBC 4.3 K/CMM 3.7 - 10.4 06/23/2012 [facility] HEMATOLOGY RBC 3.41 M/CMM 4.20 - 5.40 06/23/2012 [facility] HEMATOLOGY RDW 12.8 % 11.5 - 14.5 06/23/2012 [facility] HEMATOLOGY MPV 9.6 fL 7.4 - 10.4 06/23/2012 [facility] HEMATOLOGY Platelet 222 K/CMM 133 - 450 06/23/2012 [facility] HEMATOLOGY Hct 31.3 % 36.0 - 48.0 06/23/2012 [facility] HEMATOLOGY MCHC 33.9 g/dL 32.0 - 36.0 06/23/2012 [facility] HEMATOLOGY MCH 31.1 pg 27.0 - 31.0 06/23/2012 [facility] HEMATOLOGY MCV 91.8 fL 81.0 - 99.0 06/23/2012 [facility] HEMATOLOGY Hgb 10.6 g/dL 12.0 - 16.0 06/23/2012 [facility] CHEMISTRY UDS Note See Note 2 *NA* (05/15/2012 19:28:00) 05/16/2012 NA 2Interpretive Data: Drugs reported as positive have not been confirmed by a second method and should be used for medical purposes only. To order confirmation, contact laboratory. note: Below are cut-off concentrations for all urine drugs of abuse performed in the laboratory. Some drugs listed in the table may not be included in this panel. Description Cut-off concentration Amphetamine 1000 ng/mL Barbiturates 200 ng/mL Benzodiazepines 300 ng/mL Cocaine metabolites 300 ng/mL Opiates 300 ng/mL Phencyclidine 25 ng/mL Propoxyphene 300 ng/mL Marijuana metabolites 50 ng/mL Methadone 300 ng/mL Urine alcohol 20 mg/dL [facility] CHEMISTRY U Phencyc Scr Negative *NA* (05/15/2012 19:28:00) Negative 05/16/[address] [facility] CHEMISTRY U Opiate Scr Negative *NA* (05/15/2012 19:28:00) Negative 05/16/[address] [facility] CHEMISTRY U Cannab Scr Negative *NA* (05/15/2012 19:28:00) Negative 05/16/[address] [facility] CHEMISTRY U Cocaine Scr Negative *NA* (05/15/2012 19:28:00) Negative 05/16/[address] [facility] CHEMISTRY U Benzodia Scr Negative *NA* (05/15/2012 19:28:00) Negative 05/16/[address] [facility] CHEMISTRY U Yaneth Scr Negative *NA* (05/15/2012 19:28:00) Negative 05/16/[address] [facility] CHEMISTRY U Amph Scr Negative *NA* (05/15/2012 19:28:00) Negative 05/16/[address] [facility] CHEMISTRY U Preg Negative (05/15/2012 19:28:00) Negative 05/16/[address] [facility] BEDSIDE GLUCOSE TESTING Gluc POC Lifscn 91 mg/dL 70 - 99 05/15/2012 Normal 1Interpretive Data: Upper Reportable Limit: 200 mg/dL. [facility] CHEMISTRY Phosphorus 3.5 mg/dL 2.5 - 4.5 01/31/[address] [facility] CHEMISTRY Magnesium Lvl 1.7 mg/dL 1.8 - 2.4 01/31/[address] [facility] CHEMISTRY A/G Ratio 0.9 0.7 - 1.6 01/31/[address] [facility] CHEMISTRY Globulin 3.7 g/dL 2.0 - 4.0 01/31/[address] [facility] CHEMISTRY B/C Ratio 14 6 - 25 01/31/[address] [facility] CHEMISTRY AGAP 10.4 meq/L 10.0 - 20.0 01/31/[address] [facility] CHEMISTRY Bili Total 0.2 mg/dL 0.2 - 1.3 01/31/[address] [facility] CHEMISTRY Alk Phos 88 U/L 39 - 136 01/31/[address] [facility] CHEMISTRY AST 18 U/L 0 - 37 01/31/[address] [facility] CHEMISTRY Total Protein 7.2 g/dL 6.4 - 8.4 01/31/[address] [facility] CHEMISTRY ALT 30 U/L 0 - 65 01/31/[address] [facility] CHEMISTRY Albumin Lvl 3.5 g/dL 3.5 - 5.0 01/31/[address] [facility] CHEMISTRY Calcium Lvl 8.9 mg/dL 8.5 - 10.5 01/31/[address] [facility] CHEMISTRY CO2 28 meq/L 24 - 32 01/31/[address] [facility] CHEMISTRY Chloride Lvl 103 meq/L 95 - 109 01/31/[address] [facility] CHEMISTRY Glucose Lvl 108 mg/dL 70 - 99 01/31/2012 OR 1Interpretive Data: Adult reference range values reflect the clinical guidelinesof the [place] [employer]. [facility] CHEMISTRY Creatinine Lvl 0.7 mg/dL 0.5 - 1.4 01/31/[address] [facility] CHEMISTRY BUN 10 mg/dL 7 - 22 01/31/[address] [facility] CHEMISTRY Potassium Lvl 3.4 meq/L 3.5 - 5.1 01/31/[address] [facility] CHEMISTRY Sodium Lvl 138 meq/L 135 - 145 01/31/[address] [facility] CHEMISTRY Ammonia 34.0 umol/L <=45.0 01/31/[address] [facility] HEMATOLOGY MCV 92.4 fL 81.0 - 99.0 01/31/[address] [facility] HEMATOLOGY Hct 36.0 % 36.0 - 48.0 01/31/[address] [facility] HEMATOLOGY MCHC 34.8 g/dL 32.0 - 36.0 01/31/[address] [facility] HEMATOLOGY MCH 32.1 pg 27.0 - 31.0 01/31/[address] [facility] HEMATOLOGY RDW 12.6 % 11.5 - 14.5 01/31/[address] [facility] HEMATOLOGY Platelet 235 K/CMM 133 - 450 01/31/[address] [facility] HEMATOLOGY MPV 8.9 fL 7.4 - 10.4 01/31/2012 [facility] HEMATOLOGY WBC 5.3 K/CMM 3.7 - 10.4 01/31/2012 [facility] HEMATOLOGY RBC 3.89 M/CMM 4.20 - 5.40 01/31/[address] [facility] HEMATOLOGY Hgb 12.5 g/dL 12.0 - 16.0 01/31/2012 [facility] HEMATOLOGY Polychrom Slight (01/30/2012 23:55:00) None Seen 01/31/2012 [facility] HEMATOLOGY Anisocyte 1+ *ABN* (01/30/2012 23:55:00) None Seen 01/31/[address] [facility] HEMATOLOGY Basophils # 0.0 K/CMM 0.0 - 0.2 01/31/2012 [facility] HEMATOLOGY Segs-Bands # 2.3 K/CMM 1.5 - 8.1 01/31/2012 [facility] HEMATOLOGY Basophils 0.8 % 0.0 - 1.0 01/31/[address] [facility] HEMATOLOGY Eosinophils # 0.0 K/CMM 0.0 - 0.5 01/31/2012 [facility] HEMATOLOGY Lymphocytes # 2.5 K/CMM 1.0 - 5.5 01/31/2012 [facility] HEMATOLOGY Monocytes # 0.5 K/CMM 0.0 - 0.8 01/31/2012 [facility] HEMATOLOGY Segs 43.6 % 45.0 - 75.0 01/31/[address] [facility] HEMATOLOGY Lymphocytes 46.3 % 20.0 - 40.0 01/31/[address] [facility] HEMATOLOGY Eosinophils 0.8 % 0.0 - 4.0 01/31/2012 [facility] HEMATOLOGY Monocytes 8.5 % 2.0 - 12.0 01/31/2012 [facility] IMMUNOLOGY RPR Non Reactive (01/06/2012 10:47:00) Non Reactive 01/06/2012 [facility] CHEMISTRY U Preg Negative (01/05/2012 01:50:00) Negative 01/05/2012 [facility] CHEMISTRY Temp Olvin 37.0 Erendira 01/05/[address] [facility] CHEMISTRY BE Olvin 2 mMol/L -2-2 - 2 01/05/2012 [facility] CHEMISTRY pCO2 Olvin 42 mm[Hg] 38 - 52 01/05/[address] [facility] CHEMISTRY pO2 Olvin 59 mm[Hg] 20 - 49 01/05/2012 [facility] CHEMISTRY HCO3 Olvin 27.2 mMol/L 22.0 - 26.0 01/05/2012 [facility] CHEMISTRY O2 Sat Olvin 91.0 % 40.0 - 70.0 01/05/2012 [facility] CHEMISTRY pH Olvin 7.42 7.28 - 7.42 01/05/[address] [facility] CHEMISTRY Ammonia 35.0 umol/L <=45.0 01/05/[address] [facility] CHEMISTRY Lactic Acid Lvl 0.9 mMol/L 0.5 - 2.2 01/05/[address] [facility] CHEMISTRY Total Protein 8.1 g/dL 6.4 - 8.4 01/05/[address] [facility] CHEMISTRY Bili Total 0.2 mg/dL 0.2 - 1.3 01/05/[address] [facility] CHEMISTRY Bili Indirect 0.1 mg/dL 0.0 - 1.0 01/05/[address] [facility] CHEMISTRY Phosphorus 4.5 mg/dL 2.5 - 4.5 01/05/[address] [facility] CHEMISTRY Magnesium Lvl 2.0 mg/dL 1.8 - 2.4 01/05/[address] [facility] CHEMISTRY AST 10 U/L 0 - 37 01/05/[address] [facility] CHEMISTRY Trig 148 mg/dL 0 - 200 01/05/[address] [facility] CHEMISTRY Bili Direct 0.1 mg/dL 0.0 - 0.3 01/05/[address] [facility] CHEMISTRY Calcium Lvl 9.1 mg/dL 8.5 - 10.5 01/05/[address] [facility] CHEMISTRY CO2 23 meq/L 24 - 32 01/05/[address] [facility] CHEMISTRY Chloride Lvl 106 meq/L 95 - 109 01/05/[address] [facility] CHEMISTRY Albumin Lvl 4.1 g/dL 3.5 - 5.0 01/05/[address] [facility] CHEMISTRY ALT 16 U/L 0 - 65 01/05/[address] [facility] CHEMISTRY Alk Phos 78 U/L 39 - 136 01/05/[address] [facility] CHEMISTRY Potassium Lvl 4.1 meq/L 3.5 - 5.1 01/05/[address] [facility] CHEMISTRY Sodium Lvl 141 meq/L 135 - 145 01/05/[address] [facility] CHEMISTRY Creatinine Lvl 0.7 mg/dL 0.5 - 1.4 01/05/[address] [facility] CHEMISTRY BUN 9 mg/dL 7 - 22 01/05/[address] [facility] CHEMISTRY Glucose Lvl 83 mg/dL 70 - 99 01/05/2012 Normal 1Interpretive Data: Adult reference range values reflect the clinical guidelinesof the [place] [employer]. [facility] CHEMISTRY Total CK 161 U/L 12 - 191 01/05/[address] [facility] HEMATOLOGY Basophils # 0.0 K/CMM 0.0 - 0.2 01/05/[address] [facility] HEMATOLOGY Large Plt Slight *ABN* (01/04/2012 22:56:00) None Seen 01/05/[address] [facility] HEMATOLOGY Segs-Bands # 3.1 K/CMM 1.5 - 8.1 01/05/[address] [facility] HEMATOLOGY Lymphocytes # 2.4 K/CMM 1.0 - 5.5 01/05/[address] [facility] HEMATOLOGY Eosinophils # 0.0 K/CMM 0.0 - 0.5 01/05/[address] [facility] HEMATOLOGY Monocytes # 0.5 K/CMM 0.0 - 0.8 01/05/[address] [facility] HEMATOLOGY Basophils 0.5 % 0.0 - 1.0 01/05/[address] [facility] HEMATOLOGY RBC Morph Normal (01/04/2012 22:56:00) 01/05/[address] [facility] HEMATOLOGY Segs 50.7 % 45.0 - 75.0 01/05/[address] [facility] HEMATOLOGY Eosinophils 0.6 % 0.0 - 4.0 01/05/[address] [facility] HEMATOLOGY Lymphocytes 40.1 % 20.0 - 40.0 01/05/2012 [facility] HEMATOLOGY Monocytes 8.1 % 2.0 - 12.0 01/05/[address] [facility] HEMATOLOGY MPV 11.4 fL 7.4 - 10.4 01/05/2012 [facility] HEMATOLOGY Platelet 194 K/CMM 133 - 450 01/05/[address] [facility] HEMATOLOGY RDW 12.9 % 11.5 - 14.5 01/05/[address] [facility] HEMATOLOGY MCHC 33.0 g/dL 32.0 - 36.0 01/05/[address] [facility] HEMATOLOGY MCV 92.2 fL 81.0 - 99.0 01/05/[address] [facility] HEMATOLOGY MCH 30.4 pg 27.0 - 31.0 01/05/[address] [facility] HEMATOLOGY Hct 38.7 % 36.0 - 48.0 01/05/[address] [facility] HEMATOLOGY Hgb 12.8 g/dL 12.0 - 16.0 01/05/[address] [facility] HEMATOLOGY RBC 4.19 M/CMM 4.20 - 5.40 01/05/[address] [facility] HEMATOLOGY WBC 6.0 K/CMM 3.7 - 10.4 01/05/[address] [facility] CHEMISTRY U Preg Negative (09/24/2011 14:19:00) Negative 09/24/[address] [facility] URINALYSIS UA Renal Epi None Seen (09/24/2011 14:19:00) 09/24/[address] [facility] URINALYSIS UA Mucus None Seen (09/24/2011 14:19:00) None Seen 09/24/[address] [facility] URINALYSIS Micro? Performed (09/24/2011 14:19:00) 09/24/[address] [facility] URINALYSIS UA Sq Epi None Seen (09/24/2011 14:19:00) Few 09/24/[address] [facility] URINALYSIS UA RBC 21-50 /HPF *ABN* (09/24/2011 14:19:00) 0 - 2 09/24/[address] [facility] URINALYSIS UA WBC None Seen (09/24/2011 14:19:00) None Seen 09/24/[address] [facility] URINALYSIS UA Bacteria Occasional /HPF (09/24/2011 14:19:00) None Seen 09/24/[address] [facility] URINALYSIS UA Blood Large *ABN* (09/24/2011 14:19:00) Negative 09/24/[address] [facility] URINALYSIS UA Urobilinogen 0.2 EU/dL 0.1 - 1.0 09/24/[address] [facility] URINALYSIS UA Nitrite Negative (09/24/2011 14:19:00) Negative 09/24/[address] [facility] URINALYSIS UA Leuk Est Negative (09/24/2011 14:19:00) Negative 09/24/[address] [facility] URINALYSIS UA Ketones 15 mg/dL *ABN* (09/24/2011 14:19:00) Negative 09/24/[address] [facility] URINALYSIS UA Bili Negative *NA* (09/24/2011 14:19:00) Negative 09/24/[address] [facility] URINALYSIS UA pH 7.0 5.0 - 8.0 09/24/[address] [facility] URINALYSIS UA Protein Negative (09/24/2011 14:19:00) Negative 09/24/[address] [facility] URINALYSIS UA Glucose Negative (09/24/2011 14:19:00) Negative 09/24/[address] [facility] URINALYSIS UA Color Yellow *NA* (09/24/2011 14:19:00) Yellow 09/24/[address] [facility] URINALYSIS UA Turbidity Slight Cloudy (09/24/2011 14:19:00) Clear 09/24/[address] [facility] URINALYSIS UA Spec Grav 1.015 <=1.030 09/24/[address] [facility] CHEMISTRY Phosphorus 2.9 mg/dL 2.5 - 4.5 09/24/[address] [facility] CHEMISTRY Magnesium Lvl 1.7 mg/dL 1.8 - 2.4 09/24/[address] [facility] CHEMISTRY Calcium Lvl 8.3 mg/dL 8.5 - 10.5 09/24/[address] [facility] CHEMISTRY Potassium Lvl 5.7 meq/L 3.5 - 5.1 09/24/2011 HI 1Result Comment: Specimen Moderately Hemolyzed. [facility] CHEMISTRY Chloride Lvl 105 meq/L 95 - 109 09/24/[address] [facility] CHEMISTRY CO2 22 meq/L 24 - 32 09/24/[address] [facility] CHEMISTRY Glucose Lvl 80 mg/dL 09/24/2011 NA 2Interpretive Data: Reference Ranges : 0 - 7 days : 41 - 90 mg/dL7 days - 150 yrs : 70 - 99 mg/dL (fasting), based on the clinical recommendations of the [place] [employer]. [facility] CHEMISTRY BUN 10 mg/dL 7 - 22 09/24/[address] [facility] CHEMISTRY Creatinine Lvl 0.3 mg/dL 0.5 - 1.4 09/24/[address] [facility] CHEMISTRY Sodium Lvl 137 meq/L 135 - 145 09/24/[address] [facility] CHEMISTRY AGAP 15.7 meq/L 10.0 - 20.0 09/24/[address] [facility] HEMATOLOGY Eosinophils 0.7 % 0.0 - 4.0 09/24/[address] [facility] HEMATOLOGY Basophils 0.7 % 0.0 - 1.0 09/24/2011 [facility] HEMATOLOGY Segs 58.4 % 45.0 - 75.0 09/24/[address] [facility] HEMATOLOGY Lymphocytes 33.6 % 20.0 - 40.0 09/24/[address] [facility] HEMATOLOGY Monocytes 6.6 % 2.0 - 12.0 09/24/[address] [facility] HEMATOLOGY Segs-Bands # 2.5 K/CMM 1.5 - 8.1 09/24/2011 [facility] HEMATOLOGY Lymphocytes # 1.4 K/CMM 1.0 - 5.5 09/24/2011 [facility] HEMATOLOGY Monocytes # 0.3 K/CMM 0.0 - 0.8 09/24/[address] [facility] HEMATOLOGY Eosinophils # 0.0 K/CMM 0.0 - 0.5 09/24/2011 [facility] HEMATOLOGY Basophils # 0.0 K/CMM 0.0 - 0.2 09/24/2011 [facility] HEMATOLOGY Platelet 183 K/CMM 133 - 450 09/24/2011 [facility] HEMATOLOGY MPV 9.8 fL 7.4 - 10.4 09/24/2011 [facility] HEMATOLOGY MCH 31.4 pg 27.0 - 31.0 09/24/[address] [facility] [facility] HEMATOLOGY MCHC 34.2 g/dL 32.0 - 36.0 09/24/2011 [facility] HEMATOLOGY RDW 12.6 % 11.5 - 14.5 09/24/2011 [facility] HEMATOLOGY RBC 4.07 M/CMM 4.20 - 5.40 09/24/[address] [facility] HEMATOLOGY Hgb 12.8 g/dL 12.0 - 16.0 09/24/[address] [facility] HEMATOLOGY Hct 37.4 % 36.0 - 48.0 09/24/[address] [facility] HEMATOLOGY MCV 91.8 fL 81.0 - 99.0 09/24/[address] [facility] HEMATOLOGY WBC 4.2 K/CMM 3.7 - 10.4 09/24/[address] [facility] CHEMISTRY Magnesium Lvl 1.8 mg/dL 1.8 - 2.4 09/20/[address] [facility] CHEMISTRY Phosphorus 3.1 mg/dL 2.5 - 4.5 09/20/[address] [facility] CHEMISTRY UDS Note See Note 2 *NA* (09/20/2011 17:00:00) 09/20/2011 NA 2Interpretive Data: Drugs reported as positive have not been confirmed by a second method and should be used for medical purposes only. To orderconfirmation, contact laboratory. note: Below are cut-off concentrations for all urine drugs of abuse performed in the laboratory. Some drugs listed in the table may not be included in this panel.Description Cut-off concentration Amphetamine 1000 ng/mLBarbiturates 200 ng/mLBenzodiazepines 300 ng/mLCocaine metabolites 300 ng/mLOpiates 300 ng/mLPhencyclidine 25 ng/mLPropoxyphene 300 ng/mLMarijuana metabolites 50 ng/mLMethadone 300 ng/mLUrine alcohol 20 mg/dL [facility] CHEMISTRY U Phencyc Scr Negative *NA* (09/20/2011 17:00:00) Negative 09/20/[address] [facility] CHEMISTRY U Cannab Scr Negative *NA* (09/20/2011 17:00:00) Negative 09/20/[address] [facility] CHEMISTRY U Opiate Scr Negative *NA* (09/20/2011 17:00:00) Negative 09/20/2011 [facility] CHEMISTRY U Cocaine Scr Negative *NA* (09/20/2011 17:00:00) Negative 09/20/[address] [facility] CHEMISTRY U Yaneth Scr Negative *NA* (09/20/2011 17:00:00) Negative 09/20/[address] [facility] CHEMISTRY U Benzodia Scr Negative *NA* (09/20/2011 17:00:00) Negative 09/20/[address] [facility] CHEMISTRY U Amph Scr Negative *NA* (09/20/2011 17:00:00) Negative 09/20/[address] [facility] URINALYSIS UA WBC 3-5 /HPF (09/20/2011 17:00:00) None Seen 09/20/[address] [facility] URINALYSIS UA Sq Epi None Seen (09/20/2011 17:00:00) Few 09/20/[address] [facility] URINALYSIS UA RBC >100 /HPF *ABN* (09/20/2011 17:00:00) 0 - 2 09/20/[address] [facility] URINALYSIS UA Bacteria Occasional /HPF (09/20/2011 17:00:00) None Seen 09/20/[address] [facility] URINALYSIS UA Mucus Rare /LPF (09/20/2011 17:00:00) None Seen 09/20/[address] [facility] URINALYSIS UA Nitrite Negative (09/20/2011 17:00:00) Negative 09/20/[address] [facility] URINALYSIS Micro? Performed (09/20/2011 17:00:00) 09/20/[address] [facility] URINALYSIS UA Leuk Est Trace *ABN* (09/20/2011 17:00:00) Negative 09/20/[address] [facility] URINALYSIS UA Blood Large *ABN* (09/20/2011 17:00:00) Negative 09/20/[address] [facility] URINALYSIS UA Ketones 40 mg/dL *ABN* (09/20/2011 17:00:00) Negative 09/20/[address] [facility] URINALYSIS UA Urobilinogen 0.2 EU/dL 0.1 - 1.0 09/20/[address] [facility] URINALYSIS UA Bili Small *ABN* (09/20/2011 17:00:00) Negative 09/20/[address] [facility] URINALYSIS UA Color Red *ABN* (09/20/2011 17:00:00) Yellow 09/20/[address] [facility] URINALYSIS UA Protein 30 mg/dL *ABN* (09/20/2011 17:00:00) Negative 09/20/[address] [facility] URINALYSIS UA pH 6.0 5.0 - 8.0 09/20/[address] [facility] URINALYSIS UA Spec Grav 1.025 <=1.030 09/20/[address] [facility] URINALYSIS UA Turbidity Cloudy *ABN* (09/20/2011 17:00:00) Clear 09/20/[address] [facility] URINALYSIS UA Glucose Negative (09/20/2011 17:00:00) Negative 09/20/[address] [facility] CHEMISTRY Valproic Acid Lvl 83 ug/ml 50 - 100 09/20/[address] [facility] CHEMISTRY Calcium Lvl 9.2 mg/dL 8.5 - 10.5 09/20/[address] [facility] CHEMISTRY Potassium Lvl 4.1 meq/L 3.5 - 5.1 09/20/[address] [facility] CHEMISTRY Sodium Lvl 139 meq/L 135 - 145 09/20/[address] [facility] CHEMISTRY Chloride Lvl 103 meq/L 95 - 109 09/20/[address] [facility] CHEMISTRY CO2 22 meq/L 24 - 32 09/20/[address] [facility] CHEMISTRY Creatinine Lvl 0.7 mg/dL 0.5 - 1.4 09/20/[address] [facility] CHEMISTRY Glucose Lvl 72 mg/dL 09/20/2011 NA 1Interpretive Data: Reference Ranges : 0 - 7 days : 41 - 90 mg/dL7 days - 150 yrs : 70 - 99 mg/dL (fasting), based on the clinical recommendations of the [place] [employer]. [facility] CHEMISTRY BUN 9 mg/dL 7 - 22 09/20/[address] [facility] CHEMISTRY AGAP 18.1 meq/L 10.0 - 20.0 09/20/[address] [facility] HEMATOLOGY Basophils # 0.0 K/CMM 0.0 - 0.2 09/20/[address] [facility] HEMATOLOGY Eosinophils # 0.0 K/CMM 0.0 - 0.5 09/20/[address] [facility] HEMATOLOGY Monocytes # 0.4 K/CMM 0.0 - 0.8 09/20/[address] [facility] HEMATOLOGY Eosinophils 0.4 % 0.0 - 4.0 09/20/[address] [facility] HEMATOLOGY Lymphocytes # 1.7 K/CMM 1.0 - 5.5 09/20/[address] [facility] HEMATOLOGY Basophils 0.4 % 0.0 - 1.0 09/20/[address] [facility] HEMATOLOGY Segs-Bands # 4.7 K/CMM 1.5 - 8.1 09/20/[address] [facility] HEMATOLOGY Segs 68.7 % 45.0 - 75.0 09/20/[address] [facility] HEMATOLOGY Lymphocytes 24.7 % 20.0 - 40.0 09/20/2011 [facility] HEMATOLOGY Monocytes 5.8 % 2.0 - 12.0 09/20/[address] [facility] HEMATOLOGY MCV 92.3 fL 81.0 - 99.0 09/20/[address] [facility] HEMATOLOGY MCH 31.6 pg 27.0 - 31.0 09/20/2011 [facility] HEMATOLOGY RDW 12.6 % 11.5 - 14.5 09/20/2011 [facility] HEMATOLOGY MPV 10.5 fL 7.4 - 10.4 09/20/2011 [facility] HEMATOLOGY MCHC 34.2 g/dL 32.0 - 36.0 09/20/[address] [facility] HEMATOLOGY Platelet 186 K/CMM 133 - 450 09/20/[address] [facility] HEMATOLOGY RBC 4.15 M/CMM 4.20 - 5.40 09/20/[address] [facility] HEMATOLOGY WBC 6.8 K/CMM 3.7 - 10.4 09/20/[address] [facility] HEMATOLOGY Hgb 13.1 g/dL 12.0 - 16.0 09/20/2011 [facility] HEMATOLOGY Hct 38.3 % 36.0 - 48.0 09/20/2011 [facility] Vital Signs Vital Sign Value Date Comments Source Systolic (mm Hg) 128 06/23/2018 [facility] Diastolic (mm Hg) 77 06/23/2018 [facility] Heart Rate 85 06/23/2018 [facility] Temperature Oral (F) 36.72 Erendira 06/23/2018 [facility] Respitory Rate 18 06/23/2018 [facility] Systolic (mm Hg) 148 06/06/2018 [facility] Diastolic (mm Hg) 90 06/06/2018 [facility] Heart Rate 85 06/06/2018 [facility] Temperature Oral (F) 36.44 Erendira 06/06/2018 [facility] Respitory Rate 18 06/06/2018 [facility] Height 62 03/29/2014 [facility] Weight 137 03/29/2014 [facility] Temperature Oral (F) 98.1 F 03/29/2014 [facility] Heart Rate 80 03/29/2014 [facility] Systolic (mm Hg) 117 03/29/2014 [facility] Diastolic (mm Hg) 82 03/29/2014 [facility] Temperature Oral (F) 97.6 F 06/24/[address] [facility] Systolic (mm Hg) 113 06/24/[address] [facility] Respitory Rate 18 06/24/[address] [facility] Temperature Oral (F) 100.0 F 06/24/[address] [facility] Heart Rate 84 06/24/2012 [facility] Diastolic (mm Hg) 52 06/24/[address] [facility] Systolic (mm Hg) 120 06/23/[address] [facility] Diastolic (mm Hg) 61 06/23/[address] [facility] Temperature Oral (F) 98.8 F 06/23/[address] [facility] Heart Rate 96 06/23/[address] [facility] Respitory Rate 19 06/23/[address] [facility] Systolic (mm Hg) 121 06/23/2012 [facility] Diastolic (mm Hg) 58 06/23/[address] [facility] Respitory Rate 11 06/23/[address] [facility] Weight 70.100 06/23/[address] [facility] Height 162.00 cm 06/23/[address] [facility] Weight 67.273 05/15/[address] [facility] Height 157.48 cm 05/15/[address] [facility] Weight 66.000 04/13/[address] [facility] Height 160.50 cm 04/13/[address] [facility] Weight 63.636 01/31/[address] [facility] Height 157.48 cm 01/20/[address] [facility] Weight 63.636 01/20/2012 [facility] Diastolic (mm Hg) 63 01/07/2012 [facility] Respitory Rate 20 01/07/2012 [facility] Systolic (mm Hg) 100 01/07/2012 [facility] Heart Rate 90 01/07/2012 [facility] Temperature Oral (F) 98.3 F 01/07/2012 [facility] Systolic (mm Hg) 93 01/07/[address] [facility] Temperature Oral (F) 99.0 F 01/07/2012 [facility] Respitory Rate 19 01/07/2012 [facility] Heart Rate 82 01/07/2012 [facility] Diastolic (mm Hg) 62 01/07/[address] [facility] Temperature Oral (F) 98.1 F 01/07/[address] [facility] Heart Rate 79 01/07/2012 [facility] Diastolic (mm Hg) 67 01/07/2012 [facility] Systolic (mm Hg) 108 01/07/[address] [facility] Respitory Rate 18 01/07/[address] [facility] Height 151.00 cm 01/05/[address] [facility] Weight 62.700 01/05/[address] [facility] Weight 68.182 01/05/2012 [facility] Systolic (mm Hg) 141 09/24/[address] [facility] Heart Rate 75 09/24/2011 [facility] Diastolic (mm Hg) 85 09/24/2011 [facility] Respitory Rate 18 09/24/[address] [facility] Temperature Oral (F) 98.0 F 09/24/2011 [facility] Diastolic (mm Hg) 77 09/24/2011 [facility] Systolic (mm Hg) 138 09/24/2011 [facility] Respitory Rate 22 09/24/[address] [facility] Heart Rate 88 09/24/[address] [facility] Temperature Oral (F) 99.1 F 09/24/2011 [facility] Systolic (mm Hg) 142 09/24/2011 [facility] Respitory Rate 18 09/24/[address] [facility] Heart Rate 80 09/24/2011 [facility] Diastolic (mm Hg) 78 09/24/[address] [facility] Weight 70.455 09/24/[address] [facility] Temperature Oral (F) 98.2 F 09/24/[address] [facility] Height 157.48 cm 09/24/[address] [facility] Diastolic (mm Hg) 66 09/21/[address] [facility] Heart Rate 86 09/21/[address] [facility] Systolic (mm Hg) 128 09/21/[address] [facility] Temperature Oral (F) 98.7 F 09/21/[address] [facility] Respitory Rate 19 09/21/[address] [facility] Diastolic (mm Hg) 76 09/21/[address] [facility] Heart Rate 73 09/21/[address] [facility] Respitory Rate 16 09/21/[address] [facility] Systolic (mm Hg) 128 09/21/[address] [facility] Respitory Rate 25 09/20/[address] [facility] Weight 68.182 09/20/[address] [facility] Height 160.02 cm 09/20/[address] [facility] Diastolic (mm Hg) 66 09/20/[address] [facility] Systolic (mm Hg) 128 09/20/[address] [facility] Heart Rate 83 09/20/[address] [facility] Encounters Location Location Details Encounter Type Encounter Number Reason For Visit Attending Provider ADM Date DC Date Status Source [facility] Emergency [id number] 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 09/20/2011 09/20/2011 Active [facility] Emergency [id number] AMS LUCI ESTRADA 09/24/2011 09/24/2011 Active [facility] Inpatient [id number] VALENTINO LYNCH 01/05/2012 01/07/2012 Active [facility] Outpatient [id number] SYNCOPE LOAN FOSTER 01/20/2012 Active [facility] Emergency [id number] DENIA WASSERMAN 01/30/2012 01/31/2012 Active [facility] Outpatient [id number] SEIZURES MOHAMMED TALAT 04/13/2012 04/13/2012 Active [facility] Emergency [id number] SEIZURES ATIM UYA 05/15/2012 05/16/2012 Active [facility] OU [id number] SYNCOPE MOHAMMED TALAT 06/23/2012 06/23/2012 Active [facility] General Surgery 350 Office Visit [id number] Zak Keys MD 03/29/2014 03/29/2014 [facility] Lab Report [id number] Zak Keys MD 03/30/2014 03/30/2014 Medical [facility] BT Emergency [id number] Pelvic pain in female 06/05/2018 06/06/2018 [facility] Emergency [id number] Irregular periods Adali ESCAMILLA 06/23/2018 06/23/2018 [facility] Procedures Procedure Code Date Perfomer Comments Source UA CHEMISTRIES 63880 06/23/2018 [facility] TEST 07226 06/23/2018 [facility] BMP POC 26073 06/23/2018 Unknown [facility] HIV-1/HIV-2 ROUTINE SCREENING 19684 06/23/2018 [facility] CBC/DIFF 46450 06/23/2018 [facility] TYPE AND SCREEN 17401 06/23/2018 [facility] U/S TRANSVAGINAL 15468 06/06/2018 [facility] U/S PELVIS LTD NON-OB [id number] 06/06/2018 [facility] BMP POC 62863 06/05/2018 Unknown [facility] HCG, QUANTITATIVE 04730 06/05/2018 [facility] HIV-1/HIV-2 ROUTINE SCREENING 40949 06/05/2018 [facility] UA CHEMISTRIES 74291 06/05/2018 [facility] CBC/DIFF 20435 06/05/2018 [facility] LIVER PROFILE 33944 06/05/2018 [facility] LIPASE 09268 06/05/2018 [facility] TYPE AND SCREEN 78113 06/05/2018 [facility]
--- OUTSIDE RECORDS SUMMARY | 2018-08-31 08:27 | XMS REPORT | CCD ---
Author Author Auto Generated Organization [facility] Address Unknown Phone Unavailable Care Team Providers Care Information Technology Teacher Name Role Phone Mitchel Yeager CP Allergies, Adverse Reactions, Alerts Substance Reaction Status penicillins Active Problem List Condition Effective Dates Status Seizure Active Seizure Active Vital Signs Most recent to oldest [Reference Range]: 1 Height 157.48 cm (05/15/2012 17:32:00) Weight 67.273 kg (05/15/2012 17:32:00) Results BEDSIDE GLUCOSE TESTING Most recent to oldest [Reference Range]: 1 Gluc POC Lifscn [70-99 mg/dL] 91 mg/dL 1 (05/15/2012 18:39:00) 1Interpretive Data: Upper Reportable Limit: 200 mg/dL. CHEMISTRY Most recent to oldest [Reference Range]: 1 U Amph Scr [Negative] Negative *NA* (05/15/2012 19:28:00) U Yaneth Scr [Negative] Negative *NA* (05/15/2012 19:28:00) U Benzodia Scr [Negative] Negative *NA* (05/15/2012 19:28:00) U Cocaine Scr [Negative] Negative *NA* (05/15/2012 19:28:00) U Opiate Scr [Negative] Negative *NA* (05/15/2012 19:28:00) U Phencyc Scr [Negative] Negative *NA* (05/15/2012 19:28:00) U Cannab Scr [Negative] Negative *NA* (05/15/2012 19:28:00) UDS Note See Note 2 *NA* (05/15/2012 19:28:00) U Preg [Negative] Negative (05/15/2012 19:28:00) 2Interpretive Data: Drugs reported as positive have [...]
--- OUTSIDE RECORDS SUMMARY | 2018-08-31 08:27 | XMS REPORT | CCD ---
Author Author Auto Generated Organization [facility] Address Unknown Phone Unavailable Care Team Providers Care Reeling And Tubing Machine Operator Name Role Phone Silverio Tello CP Allergies, Adverse Reactions, Alerts Substance Reaction Status penicillins Active Problem List Condition Effective Dates Status Seizure Active Seizure Active Medications Medication Instructions Start Date End Date Status Celexa 10 mg oral 10 mg, 1 tab, PO, Daily, 30 tab, 09/20/2011 Ordered tablet Substitution Allowed, TAB Depakote Sprinkles Substitution Allowed 09/20/2011 Ordered Depakote ER 500 mg 500 mg, 1 tab, PO, Daily, 30 tab, 09/20/2011 Ordered oral tablet, Substitution Allowed, ERTAB extended release Vital Signs Most recent to oldest [Reference Range]: 1 2 3 Height 160.02 cm (09/20/2011 15:34:00) Temperature Oral [96.8-99.7 DegF] 98.7 DegF (09/20/2011 18:49:00) Systolic Blood Pressure [90-138 mmHg] 128 mmHg (09/20/2011 18:49:00) 128 mmHg (09/20/2011 18:10:00) Systolic Blood Pressure [90-140 mmHg] 128 mmHg (09/20/2011 15:34:00) Diastolic Blood Pressure [45-84 mmHg] 66 mmHg (09/20/2011 18:49:00) 76 mmHg (09/20/2011 18:10:00) Diastolic Blood Pressure [60-90 mmHg] 66 mmHg (09/20/2011 15:34:00) Respiratory Rate [14-20 BRMIN] 19 BRMIN (09/20/2011 18:49:00) 16 BRMIN (09/20/2011 18:10:00) 25 BRMIN *HI* (09/20/2011 15:47:00) Peripheral Pulse Rate [55-90 bpm] 86 bpm (09/20/2011 18:49:00) 73 bpm (09/20/2011 18:10:00) Peripheral Pulse Rate [60-100 bpm] 83 bpm (09/20/2011 15:34:00) Weight 68.182 kg (09/20/2011 15:34:00) Results URINALYSIS Most recent to oldest [Reference Range]: 1 UA Turbidity [Clear] Cloudy *ABN* (09/20/2011 17:00:00) UA Color [Yellow] Red *ABN* (09/20/2011 17:00:00) UA pH [5.0-8.0] 6.0 (09/20/2011 17:00:00) UA Spec Grav [<=1.030] 1.025 (09/20/2011 17:00:00) UA Glucose [Negative] Negative (09/20/2011 17:00:00) UA Blood [Negative] Large *ABN* (09/20/2011 17:00:00) UA Ketones [Negative mg/dL] 40 mg/dL *ABN* (09/20/2011 17:00:00) UA Protein [Negative mg/dL] 30 mg/dL *ABN* (09/20/2011 17:00:00) UA Urobilinogen [0.1-1.0 EU/dL] 0.2 EU/dL (09/20/2011 17:00:00) UA Bili [Negative] Small *ABN* (09/20/2011 17:00:00) UA Leuk Est [Negative] Trace *ABN* (09/20/2011 17:00:00) UA Nitrite [Negative] Negative (09/20/2011 17:00:00) UA WBC [None Seen /HPF] 3-5 /HPF (09/20/2011 17:00:00) UA RBC [0-2 /HPF] >100 /HPF *ABN* (09/20/2011 17:00:00) UA Bacteria [None Seen /HPF] Occasional /HPF (09/20/2011 17:00:00) UA Sq Epi [Few] None Seen (09/20/2011 17:00:00) UA Mucus [None Seen /LPF] Rare /LPF (09/20/2011 17:00:00) Micro? Performed (09/20/2011 17:00:00) CHEMISTRY Most recent to oldest [Reference Range]: 1 Sodium Lvl [135-145 mEq/L] 139 mEq/L (09/20/2011 16:00:00) Potassium Lvl [3.5-5.1 mEq/L] 4.1 mEq/L (09/20/2011 16:00:00) Chloride Lvl [95-109 mEq/L] 103 mEq/L (09/20/2011 16:00:00) CO2 [24-32 mEq/L] 22 mEq/L *LOW* (09/20/2011 16:00:00) AGAP [10.0-20.0 mEq/L] 18.1 mEq/L (09/20/2011 16:00:00) Creatinine Lvl [0.5-1.4 mg/dL] 0.7 mg/dL (09/20/2011 16:00:00) BUN [7-22 mg/dL] 9 mg/dL (09/20/2011 16:00:00) Glucose Lvl 72 mg/dL 1 *NA* (09/20/2011 16:00:00) Calcium Lvl [8.5-10.5 mg/dL] 9.2 mg/dL (09/20/2011 16:00:00) Phosphorus [2.5-4.5 mg/dL] 3.1 mg/dL (09/20/2011 17:59:00) Magnesium Lvl [1.8-2.4 mg/dL] 1.8 mg/dL (09/20/2011 17:59:00) U Amph Scr [Negative] Negative *NA* (09/20/2011 17:00:00) U Yaneth Scr [Negative] Negative *NA* (09/20/2011 17:00:00) U Benzodia Scr [Negative] Negative *NA* (09/20/2011 17:00:00) U Cocaine Scr [Negative] Negative *NA* (09/20/2011 17:00:00) U Opiate Scr [Negative] Negative *NA* (09/20/2011 17:00:00) U Phencyc Scr [Negative] Negative *NA* (09/20/2011 17:00:00) U Cannab Scr [Negative] Negative *NA* (09/20/2011 17:00:00) UDS Note See Note 2 *NA* (09/20/2011 17:00:00) Valproic Acid Lvl [50-100 ug/ml] 83 ug/ml (09/20/2011 16:00:00) 1Interpretive Data: Reference Ranges : 0 - 7 days : 41 - 90 mg/dL7 days - 150 yrs : 70 - 99 mg/dL (fasting), based on the clinical recommendations of the [place] [employer]. 2Interpretive Data: Drugs reported as positive have [...] 50 ng/mLMethadone 300 ng/mLUrine alcohol 20 mg/dL HEMATOLOGY Most recent to oldest [Reference Range]: 1 WBC [3.7-10.4 K/CMM] 6.8 K/CMM (09/20/2011 16:00:00) RBC [4.20-5.40 M/CMM] 4.15 M/CMM *LOW* (09/20/2011 16:00:00) Hgb [12.0-16.0 g/dL] 13.1 g/dL (09/20/2011 16:00:00) Hct [36.0-48.0 %] 38.3 % (09/20/2011 16:00:00) MCV [81.0-99.0 fL] 92.3 fL (09/20/2011 16:00:00) MCH [27.0-31.0 pg] 31.6 pg *HI* (09/20/2011 16:00:00) MCHC [32.0-36.0 g/dL] 34.2 g/dL (09/20/2011 16:00:00) RDW [11.5-14.5 %] 12.6 % (09/20/2011 16:00:00) Platelet [133-450 K/CMM] 186 K/CMM (09/20/2011 16:00:00) MPV [7.4-10.4 fL] 10.5 fL *HI* (09/20/2011 16:00:00) Segs [45.0-75.0 %] 68.7 % (09/20/2011 16:00:00) Lymphocytes [20.0-40.0 %] 24.7 % (09/20/2011 16:00:00) Monocytes [2.0-12.0 %] 5.8 % (09/20/2011 16:00:00) Eosinophils [0.0-4.0 %] 0.4 % (09/20/2011 16:00:00) Basophils [0.0-1.0 %] 0.4 % (09/20/2011 16:00:00) Segs-Bands # [1.5-8.1 K/CMM] 4.7 K/CMM (09/20/2011 16:00:00) Lymphocytes # [1.0-5.5 K/CMM] 1.7 K/CMM (09/20/2011 16:00:00) Monocytes # [0.0-0.8 K/CMM] 0.4 K/CMM (09/20/2011 16:00:00) Eosinophils # [0.0-0.5 K/CMM] 0.0 K/CMM (09/20/2011 16:00:00) Basophils # [0.0-0.2 K/CMM] 0.0 K/CMM (09/20/2011 16:00:00)
--- OUTSIDE RECORDS SUMMARY | 2018-08-31 08:27 | XMS REPORT | CCD ---
Author Author Auto Generated Organization [facility] Address Unknown Phone Unavailable Care Team Providers Care Supervisor [employer] Name Role Phone Truman Hughes RP Allergies, Adverse Reactions, Alerts Substance Reaction Status penicillins Active Problem List Condition Effective Dates Status Seizure Active Seizure Active Medications Medication Instructions Start Date End Date Status Florinef Acetate 0.1 mg, 1 tab, Route: PO, Drug 06/24/2012 06/23/2012 Canceled form: TAB, Daily, Dosing Weight 70.1, kg, Start date: 06/24/12 9:00:00, Duration: 30 day, Stop date: 07/23/12 9:00:00 Tylenol 650 mg, 2 tab, Route: PO, Drug 06/23/2012 06/23/2012 Discontinued form: TAB, Q4H, PRN Pain Score 1-3, Start date: 06/23/12 19:41:00, Duration: 30 day, Stop date: 07/23/12 19:40:00 influenza virus 0.5 ml, Route: IM, Drug Form: INJ, 06/23/2012 06/23/2012 Completed vaccine, inactivated ONCALL, Start date: 06/23/12 20:30:00, Duration: 0 ondansetron 4 mg, 5 mL, Route: PO, Drug form: 06/23/2012 06/23/2012 Discontinued SOLN, Q6H, Dosing Weight 70.1, kg, PRN Nausea & Vomiting, Start date: 06/23/12 15:22:00, Duration: 30 day, Stop date: 07/23/12 15:21:00 acetaminophen 650 mg, 20.3 mL, Route: PO, Drug 06/23/2012 06/23/2012 Discontinued form: LIQ, Q4H, Dosing Weight 70.1, kg, PRN Pain Score 1-3, Start date: 06/23/12 15:22:00, Duration: 30 day, Stop date: 07/23/12 15:21:00 D5W 1/2NS + KCL 1,000 mL, Rate: 100 ml/hr, Infuse 06/23/2012 06/23/2012 Discontinued 20mEq/L 1000ml over: 10 hr, Route: IV, kg, Total (Premix) 1,000 mL Volume: 1,000, Start date: 06/23/12 15:22:00, Duration: 30 day, Stop date: 07/23/12 15:21:00 propranolol 80 mg 80 mg, 1 cap, PO, Daily, 30 cap, 3, 06/23/2012 Ordered oral capsule, 3, Substitution Allowed extended release Depakote Sprinkles 125 mg, 1 cap, Route: PO, Drug 06/24/2012 06/23/2012 Canceled form: CAP, Daily, Dosing Weight 70.1, kg, Start date: 06/24/12 9:00:00, Duration: 30 day, Stop date: 07/23/12 9:00:00 Depakote ER 500 mg, 1 tab, Route: PO, Drug 06/24/2012 06/23/2012 Canceled form: ERTAB, Daily, Dosing Weight 70.1, kg, Start date: 06/24/12 9:00:00, Duration: 30 day, Stop date: 07/23/12 9:00:00 propranolol 80 mg 80 mg, 1 tab, PO, BID, 60 tab, 06/23/2012 06/23/2012 Discontinued oral tablet Substitution Allowed, TAB Florinef Acetate 0.1 0.1 mg, 1 tab, PO, Daily, 30 tab, 06/23/2012 Ordered mg oral tablet Substitution Allowed, TAB Immunizations Vaccine Date Status influenza virus vaccine, inactivated 06/23/2012 Auth (Verified) Vital Signs Most recent to oldest [Reference Range]: 1 2 3 Height 162.00 cm (06/23/2012 12:17:00) Temperature Oral [96.8-99.7 DegF] 97.6 DegF (06/23/2012 21:23:00) 100.0 DegF 1 *HI* (06/23/2012 20:43:00) 98.8 DegF (06/23/2012 18:00:00) Systolic Blood Pressure [90-138 mmHg] 113 mmHg (06/23/2012 20:43:00) 120 mmHg (06/23/2012 18:00:00) 121 mmHg (06/23/2012 17:45:00) Diastolic Blood Pressure [45-84 mmHg] 52 mmHg (06/23/2012 20:43:00) 61 mmHg (06/23/2012 18:00:00) 58 mmHg (06/23/2012 17:45:00) Respiratory Rate [14-20 BRMIN] 18 BRMIN (06/23/2012 20:43:00) 19 BRMIN (06/23/2012 18:00:00) 11 BRMIN *LOW* (06/23/2012 17:45:00) Peripheral Pulse Rate [55-90 bpm] 84 bpm (06/23/2012 20:43:00) 96 bpm *HI* (06/23/2012 18:00:00) Weight 70.100 kg (06/23/2012 12:17:00) 1Result Comment: nurse notified Results BLOOD BANK RESULTS Most recent to [Reference Range]: 1 ABO/Rh O POS *Unknown* (06/23/2012 15:09:00) Antibody Scrn Negative (06/23/2012 15:09:00) CHEMISTRY Most recent to [Reference Range]: 1 Sodium Lvl [135-145 mEq/L] 139 mEq/L (06/23/2012 14:50:00) Potassium Lvl [3.5-5.1 mEq/L] 4.0 mEq/L (06/23/2012 14:50:00) Chloride Lvl [95-109 mEq/L] 105 mEq/L (06/23/2012 14:50:00) CO2 [24-32 mEq/L] 21 mEq/L *LOW* (06/23/2012 14:50:00) AGAP [10.0-20.0 mEq/L] 17.0 mEq/L (06/23/2012 14:50:00) Creatinine Lvl [0.5-1.4 mg/dL] 0.7 mg/dL (06/23/2012 14:50:00) eGFR 96 mL/min/1.73m2 1 *NA* (06/23/2012 14:50:00) BUN [7-22 mg/dL] 9 mg/dL (06/23/2012 14:50:00) B/C Ratio [6-25] 13 (06/23/2012 14:50:00) Glucose Lvl [70-99 mg/dL] 66 mg/dL 2 *LOW* (06/23/2012 14:50:00) Total Protein [6.4-8.4 g/dL] 6.7 g/dL (06/23/2012 14:50:00) Albumin Lvl [3.5-5.0 g/dL] 3.3 g/dL *LOW* (06/23/2012 14:50:00) Globulin [2.0-4.0 g/dL] 3.4 g/dL (06/23/2012 14:50:00) A/G Ratio [0.7-1.6] 1.0 (06/23/2012 14:50:00) Calcium Lvl [8.5-10.5 mg/dL] 8.4 mg/dL *LOW* (06/23/2012 14:50:00) Phosphorus [2.5-4.5 mg/dL] 4.2 mg/dL (06/23/2012 14:50:00) Magnesium Lvl [1.8-2.4 mg/dL] 1.5 mg/dL *LOW* (06/23/2012 14:50:00) ALT [0-65 unit/L] 20 unit/L (06/23/2012 14:50:00) AST [0-37 unit/L] 28 unit/L (06/23/2012 14:50:00) Alk Phos [39-136 unit/L] 60 unit/L (06/23/2012 14:50:00) Bili Total [0.2-1.3 mg/dL] 0.4 mg/dL (06/23/2012 14:50:00) 1Result Comment: The eGFR is calculated using the modified Cornejo equation 0.413 x Height (cm) /Serum Creatinine (mg/dL). 2Interpretive Data: Adult reference range values reflect the clinical guidelines of the [place] [employer]. HEMATOLOGY Most recent to oldest [Reference Range]: 1 WBC [3.7-10.4 K/CMM] 4.3 K/CMM (06/23/2012 14:50:00) RBC [4.20-5.40 M/CMM] 3.41 M/CMM *LOW* (06/23/2012 14:50:00) Hgb [12.0-16.0 g/dL] 10.6 g/dL *LOW* (06/23/2012 14:50:00) Hct [36.0-48.0 %] 31.3 % *LOW* (06/23/2012 14:50:00) MCV [81.0-99.0 fL] 91.8 fL (06/23/2012 14:50:00) MCH [27.0-31.0 pg] 31.1 pg *HI* (06/23/2012 14:50:00) MCHC [32.0-36.0 g/dL] 33.9 g/dL (06/23/2012 14:50:00) RDW [11.5-14.5 %] 12.8 % (06/23/2012 14:50:00) Platelet [133-450 K/CMM] 222 K/CMM (06/23/2012 14:50:00) MPV [7.4-10.4 fL] 9.6 fL (06/23/2012 14:50:00) Segs [45.0-75.0 %] 48.8 % (06/23/2012 14:50:00) Lymphocytes [20.0-40.0 %] 43.2 % *HI* (06/23/2012 14:50:00) Monocytes [2.0-12.0 %] 7.1 % (06/23/2012 14:50:00) Eosinophils [0.0-4.0 %] 0.2 % (06/23/2012 14:50:00) Basophils [0.0-1.0 %] 0.7 % (06/23/2012 14:50:00) Segs-Bands # [1.5-8.1 K/CMM] 2.1 K/CMM (06/23/2012 14:50:00) Lymphocytes # [1.0-5.5 K/CMM] 1.9 K/CMM (06/23/2012 14:50:00) Monocytes # [0.0-0.8 K/CMM] 0.3 K/CMM (06/23/2012 14:50:00) Eosinophils # [0.0-0.5 K/CMM] 0.0 K/CMM (06/23/2012 14:50:00) Basophils # [0.0-0.2 K/CMM] 0.0 K/CMM (06/23/2012 14:50:00)
--- OUTSIDE RECORDS SUMMARY | 2018-08-31 08:28 | XMS REPORT | CCD ---
Author Author Auto Generated Organization [facility] Address Unknown Phone Unavailable Care Team Providers Care Manager Vehicle Name Role Phone Elise Umaña CP Allergies, Adverse Reactions, Alerts Substance Reaction Status penicillins Active Problem List Condition Effective Dates Status Seizure Active Seizure Active Vital Signs Most recent to oldest [Reference Range]: 1 Weight 63.636 kg (01/30/2012 22:23:00) Results CHEMISTRY Most recent to oldest [Reference Range]: 1 Sodium Lvl [135-145 mEq/L] 138 mEq/L (01/30/2012 23:55:00) Potassium Lvl [3.5-5.1 mEq/L] 3.4 mEq/L *LOW* (01/30/2012 23:55:00) Chloride Lvl [95-109 mEq/L] 103 mEq/L (01/30/2012 23:55:00) CO2 [24-32 mEq/L] 28 mEq/L (01/30/2012 23:55:00) AGAP [10.0-20.0 mEq/L] 10.4 mEq/L (01/30/2012 23:55:00) Creatinine Lvl [0.5-1.4 mg/dL] 0.7 mg/dL (01/30/2012 23:55:00) BUN [7-22 mg/dL] 10 mg/dL (01/30/2012 23:55:00) B/C Ratio [6-25] 14 (01/30/2012 23:55:00) Glucose Lvl [70-99 mg/dL] 108 mg/dL 1 *HI* (01/30/2012 23:55:00) Total Protein [6.4-8.4 g/dL] 7.2 g/dL (01/30/2012 23:55:00) Albumin Lvl [3.5-5.0 g/dL] 3.5 g/dL (01/30/2012 23:55:00) Globulin [2.0-4.0 g/dL] 3.7 g/dL (01/30/2012:55:00) A/G Ratio [0.7-1.6] 0.9 (01/30/2012 23:55:00) Calcium Lvl [8.5-10.5 mg/dL] 8.9 mg/dL (01/30/2012:55:00) Phosphorus [2.5-4.5 mg/dL] 3.5 mg/dL (01/30/2012 23:55:00) Magnesium Lvl [1.8-2.4 mg/dL] 1.7 mg/dL *LOW* (01/30/2012:55:00) ALT [0-65 U/L] 30 U/L (01/30/2012:55:00) AST [0-37 U/L] 18 U/L (01/30/2012:55:00) Alk Phos [39-136 U/L] 88 U/L (01/30/2012 23:55:00) Bili Total [0.2-1.3 mg/dL] 0.2 mg/dL (01/30/2012:55:00) Ammonia [<=45.0 uMol/L] 34.0 uMol/L (01/30/2012 23:55:00) 1Interpretive Data: Adult reference range values reflect the clinical guidelinesof the [place] [employer]. HEMATOLOGY Most recent to oldest [Reference Range]: 1 WBC [3.7-10.4 K/CMM] 5.3 K/CMM (01/30/2012 23:55:00) RBC [4.20-5.40 M/CMM] 3.89 M/CMM *LOW* (01/30/2012:55:00) Hgb [12.0-16.0 g/dL] 12.5 g/dL (01/30/2012 23:55:00) Hct [36.0-48.0 %] 36.0 % (01/30/2012 23:55:00) MCV [81.0-99.0 fL] 92.4 fL (01/30/2012 23:55:00) MCH [27.0-31.0 pg] 32.1 pg *HI* (01/30/2012 23:55:00) MCHC [32.0-36.0 g/dL] 34.8 g/dL (01/30/2012 23:55:00) RDW [11.5-14.5 %] 12.6 % (01/30/2012 23:55:00) Platelet [133-450 K/CMM] 235 K/CMM (01/30/2012 23:55:00) MPV [7.4-10.4 fL] 8.9 fL (01/30/2012 23:55:00) Segs [45.0-75.0 %] 43.6 % *LOW* (01/30/2012 23:55:00) Lymphocytes [20.0-40.0 %] 46.3 % *HI* (01/30/2012 23:55:00) Monocytes [2.0-12.0 %] 8.5 % (01/30/2012 23:55:00) Eosinophils [0.0-4.0 %] 0.8 % (01/30/2012 23:55:00) Basophils [0.0-1.0 %] 0.8 % (01/30/2012 23:55:00) Segs-Bands # [1.5-8.1 K/CMM] 2.3 K/CMM (01/30/2012 23:55:00) Lymphocytes # [1.0-5.5 K/CMM] 2.5 K/CMM (01/30/2012 23:55:00) Monocytes # [0.0-0.8 K/CMM] 0.5 K/CMM (01/30/2012 23:55:00) Eosinophils # [0.0-0.5 K/CMM] 0.0 K/CMM (01/30/2012 23:55:00) Basophils # [0.0-0.2 K/CMM] 0.0 K/CMM (01/30/2012 23:55:00) Anisocyte [None Seen] 1+ *ABN* (01/30/2012 23:55:00) Polychrom [None Seen] Slight (01/30/2012 23:55:00)
--- OUTSIDE RECORDS SUMMARY | 2018-08-31 08:28 | XMS REPORT | Clinical Summary ---
Author Author [facility] Organization [facility] Address Unknown Phone Unavailable Care Team Providers Care Laborer [employer] Name Role Phone PCP Unavailable Allergies Active Allergy Reactions Severity Noted Date Comments Penicillins Hives High 06/11/2010 HIVES THROAT SWELLING Current Medications Prescription Sig. Disp. Refills Start End Date Status Date divalproex (DEPAKOTE) 500 Take 500 mg by mouth Active mg 24 hr delayed released daily. tablet Divalproex 125 mg Take 125 mg by mouth 2 Active sprinkle capsule times daily. ibuprofen (MOTRIN) 800 mg Take 1 tablet by mouth 30 tablet 0 10/22/19 Active tabletIndications: Right every 8 hours as needed 17 lower quadrant abdominal for Pain. pain Active Problems Problem Noted Date Pelvic pain in female 06/05/2018 Urinary tract infection 12/09/2011 Behavioral problem 11/19/2010 Pseudoseizure Mood disorder Encounters Date Type Specialty Care Team Description 06/05/2018 Emergency Emergency Medicine Pelvic pain in female - (Primary Dx) 06/06/2018 after 06/17/2017 Immunizations Name Dates Previously Given Next Due [...] Alive Paternal Grandfather Paternal Grandmother Social History Tobacco Use Types Packs/Day Years Used Date Never Smoker Alcohol Use Drinks/Week oz/Week Comments No Currently Estimated Date of Delivery Comments Yes Sex Assigned at Date Recorded Not on file Last Filed Vital Signs Vital Sign Reading Time Taken Blood Pressure 148/90 06/05/2018 7:43 PM CDT Pulse 85 06/05/2018 7:43 PM CDT Temperature 36.4 C (97.6 F) 06/05/2018 7:43 PM CDT Respiratory Rate 18 06/05/2018 7:43 PM CDT Oxygen Saturation 100% 06/05/2018 7:43 PM CDT Inhaled Oxygen - - Concentration Weight - - Height - - Body Mass Index - - Plan of Treatment Health Maintenance Due Date Last Done Comments IMM MenB (1 of 2 - 2005 Bexsero 2-Dose Series) Cervical Cancer Scrn (3 2016 Yrs) IMM Influenza Seasonal 06/01/2018Jun to October (>/=19 yrs) Procedures Procedure Name Priority Date/Time Associated Diagnosis Comments U/S PELVIS LTD NON-OB STAT 06/05/2018 Pelvic pain in female Results for this 7:05 PM CDT procedure are in the results section. U/S TRANSVAGINAL STAT 06/05/2018 Pelvic pain in female Results for this 7:05 PM CDT procedure are in the results section. BMP POC Routine 06/05/2018 Results for this 2:19 PM CDT procedure are in the results section. LIPASE STAT 06/05/2018 Results for this 1:59 PM CDT procedure are in the results section. LIVER PROFILE STAT 06/05/2018 Results for this 1:59 PM CDT procedure are in the results section. CBC/DIFF STAT 06/05/2018 Results for this 1:59 PM CDT procedure are in the results section. UA CHEMISTRIES STAT 06/05/2018 Results for this 1:59 PM CDT procedure are in the results section. HIV-1/HIV-2 ROUTINE STAT 06/05/2018 Results for this SCREENING 1:59 PM CDT procedure are in the results section. HCG, QUANTITATIVE STAT 06/05/2018 Results for this 1:59 PM CDT procedure are in the results section. TYPE AND SCREEN STAT 06/05/2018 1:24 PM CDT after 06/17/2017 Results * U/S PELVIS LTD NON-OB (06/05/2018 7:05 PM) Impressions Performed At IMPRESSION: SMS Unremarkable pelvic [...] PM Performing Organization Address City/State/Zipcode Phone Number [facility] * U/S TRANSVAGINAL (06/05/2018 7:05 PM) Impressions Performed At IMPRESSION: SMS Unremarkable pelvic [...] MD, 06/05/2018 8:24 PM Performing Organization Address City/[facility]/[employer] Phone Number SMS * BMP POC (06/05/2018 2:19 PM) CO2 POC 26 21 - 32 mmol/L [facility] 1 Chloride POC 102 98 - 107 mmol/L [facility] 1 Potassium POC 4.1 3.50 - 5.10 mmol/L [facility] 1 Sodium POC 140 136 - 145 mmol/L [facility] 1 Glucose POC 96 74 - 106 mg/dL [facility] 1 Urea Nitrogen POC 10 7 - 18 mg/dL [facility] 1 Creatinine POC 0.7 0.6 - 1.3 mg/dL [facility] 1 Calcium Ionized POC 1.21 1.15 - 1.29 mmol/L [facility] 1 Hemoglobin POC 16.0 12.0 - 16.0 g/dL [facility] 1 Hematocrit POC 47.0 37.0 - 47.0 % [facility] 1 GFR, Estimated >60 mL/min/1.73 m2 [facility] 1 GFR, Estim, Afr-Am >60 mL/min/1.73 m2 [facility] 1 Performing Organization Address [facility] Phone Number [facility] * HIV-1/HIV-2 ROUTINE SCREENING (06/05/2018 1:59 PM) HIV-1/HIV-2 Negative NEG [facility] 3 Performing Organization Address City/[facility] Phone Number [facility] * HCG, QUANTITATIVE (06/05/2018 1:59 PM) hCG, Quantitative <1 <5 mIU/mL [facility] 1 Specimen Blood Performing Organization Address [facility] Phone Number M[facility] * UA CHEMISTRIES (06/05/2018 1:59 PM) Color Yellow [facility] 3 Clarity Hazy [facility] 3 Spec [place] 1.020 1.001 - 1.035 [facility] 3 pH 6.0 5 - 8 [facility] 3 Protein 1+ (A) NEG [facility] 3 Glucose Negative NEG [facility] 3 Ketone Negative NEG [facility] 3 Bilirubin Negative NEG [facility] 3 Nitrate Negative NEG [facility] 3 Urobilinogen <1.0 0.2 - 1.0 EU/dL [facility] 3 Leukocyte 2+ (A) NEG [facility] 3 Blood 2+ (A) NEG [facility] 3 RBC 8 (H) 0 - 4 /HPF [facility] 3 WBC 12 (H) 0 - 5 /HPF [facility] 3 Bacteria Few [facility] 3 Epithelial Cell 26 /HPF [facility] 3 Mucous Present [facility] 3 Specimen Urine Performing Organization Address [facility] Phone Number MISYS [facility] 3 * LIVER PROFILE (06/05/2018 1:59 PM) T Protein 8.0 6.0 - 8.3 g/dL [...] MAIN-[facility] 1 Specimen Blood Performing Organization Address [facility] Phone Number [facility] * LIPASE (06/05/2018 1:59 PM) Lipase 34 11 - 82 U/L [facility] 1 Specimen Blood Performing Organization Address City/State/Zipcode Phone Number [place] [facility] 1 * CBC/DIFF (06/05/2018 1:59 PM) WBC 4.4 (L) 4.5 - 11.0 K/uL [facility] 2 RBC 4.61 4.20 - 5.40 M/uL [facility] 2 Hemoglobin 13.5 12.0 - 16.0 g/dL [facility] 2 Hematocrit 41.9 37.0 - 47.0 % [facility] 2 MCV 91 82 - 92 fL [facility] 2 MCH 29.3 27.0 - 32.0 pg [facility] 2 MCHC 32.2 32.0 - 36.0 g/dL [facility] 2 RDW 45.1 36.4 - 46.3 fL [facility] 2 Platelet 344 150 - 400 K/uL [facility] 2 Mean Platelet Volume 11.1 9.4 - 12.4 fL [facility] 2 Percent NRBC 0.0 [facility] 2 Absolute NRBC 0.00 [facility] 2 Neutrophil 41.8 34.0 - 70.0 % [facility] 2 Lymphocyte 48.5 20.0 - 50.0 % [facility] 2 Monocyte 7.7 5.0 - 12.0 % [facility] 2 Eosinophil 0.9 0.7 - 5.0 % [facility] 2 Basophil 1.1 0.1 - 1.2 % [facility] 2 Pct Immat Gran 0.0 0.0 - 0.5 [facility] 2 Neutrophil, Abs 1.83 1.56 - 6.13 K/uL [facility] 2 Lymphocyte, Abs 2.13 1.18 - 3.74 K/uL [facility] 2 Monocyte, Abs 0.34 0.24 - 0.36 K/uL BT [facility] 2 Eosinophil, Abs 0.04 0.04 - 0.36 K/uL [facility] 2 Basophil, Abs 0.05 0.01 - 0.08 K/uL [facility] 2 Absol Immat Gran 0.00 0.00 - 0.03 K/uL [facility] 2 Specimen Blood Performing Organization Address City/State/Zipcode Phone Number [facility] [place] [facility] 2 after 06/17/2017
--- OUTSIDE RECORDS SUMMARY | 2018-08-31 08:28 | XMS REPORT | CCD ---
Author Author Auto Generated Organization [facility] Address Unknown Phone Unavailable Care Team Providers Care Recreation Teacher Name Role Phone Truman Hughes CP Allergies, Adverse Reactions, Alerts Substance Reaction Status penicillins Active Problem List Condition Effective Dates Status Seizure Active Seizure Active Vital Signs Most recent to oldest [Reference Range]: 1 Height 160.50 cm (04/13/2012 11:23:00) Weight 66.000 kg (04/13/2012 11:23:00)
--- OUTSIDE RECORDS SUMMARY | 2018-08-31 08:28 | XMS REPORT | Continuity of Care Document ---
Author Author [facility] Organization [facility] Address Unknown Phone Unavailable Care Team Providers Care Nickel Plater Name Role Phone MD Ludmila, Zak GONZALEZ Unavailable Insurance Providers Payer name Policy type / Coverage type Policy ID Covered libertarian ID Policy Esp[place] - TM[employer] - TRADITIONAL Encounters Encounter Performer Location Date Office Visit Zak Keys MD [facility] [address] [facility] [address] Mar 29, 2014 Allergies, Adverse Reactions, Alerts Type Substance Reaction Status Drug allergy PENICILLIN Active Problems Problem Effective Dates Problem Status ACUTE APPENDICITIS WITH GENERALIZED PERITONITIS Mar 29, 2014 Active Procedures Date Description Comments Mar 29, 2014 smoking status Never smoker Vital Signs Date Description Test Result Mar 29, 2014 height E&M HEIGHT 62 in Mar 29, 2014 weight E&M WEIGHT 137 lb Mar 29, 2014 temperature E&M TEMPERATURE 98.1 deg f Mar 29, 2014 pulse rate E&M PULSE RATE 80 /min Mar 29, 2014 blood pressure, systolic BP SYSTOLIC 117 mm Hg Mar 29, 2014 blood pressure, diastolic BP DIASTOLIC 82 mm Hg
--- OUTSIDE RECORDS SUMMARY | 2018-08-31 08:28 | XMS REPORT | Clinical Summary ---
Author Author [facility] Organization [facility] Address Unknown Phone Unavailable Care Team Providers Care Spiritual Care Coordinator Name Role Phone PCP Unavailable Allergies Active [...] 17 lower quadrant abdominal for Pain. pain levonorgestrel-ethinyl Take 1 tablet by mouth 28 Each 2 06/23/20 Active estradiol (LUTERA, 28,) daily As directed on the 18 0.1-20 mg-mcg pouch. tabletIndications: Irregular periods ferrous sulfate (FEOSOL) Take 1 tablet by mouth 30 tablet 0 06/23/20 Active 325 mg (65 mg iron) daily (with breakfast) 18 tabletIndications: While you are bleeding. Irregular periods Active Problems Problem Noted Date Irregular periods 06/23/2018 Pelvic pain in female 06/05/2018 Urinary tract infection 12/09/2011 Behavioral problem 11/19/2010 Pseudoseizure Mood disorder Encounters Date Type Specialty Care Team Description 06/23/2018 Emergency Emergency Medicine Adali Muro PA Irregular periods (Primary Dx) 06/05/2018 Emergency Emergency Medicine Pelvic pain in female - (Primary Dx) 06/06/2018 after 07/22/2017 Immunizations Name Dates Previously Given Next Due [...] Vital Sign Reading Time Taken Blood Pressure 128/77 06/23/2018 4:10 PM CDT Pulse 85 06/23/2018 4:10 PM CDT Temperature 36.7 C (98.1 F) 06/23/2018 4:10 PM CDT Respiratory Rate 18 06/23/2018 4:10 PM CDT Oxygen Saturation 100% 06/23/2018 4:10 PM CDT Inhaled Oxygen - - Concentration Weight - - Height - - Body Mass Index - - Plan of Treatment Health Maintenance Due Date Last Done Comments IMM MenB (1 of 2 - 2005 Bexsero 2-Dose Series) Cervical Cancer Scrn (3 2016 Yrs) IMM Influenza Seasonal 06/01/2018Jun to October (>/=19 yrs) Procedures Procedure Name Priority Date/Time Associated Diagnosis Comments TEST STAT 06/23/2018 Results for this 4:26 PM CDT procedure are in the results section. UA CHEMISTRIES STAT 06/23/2018 Results for this 4:26 PM CDT procedure are in the results section. BMP POC Routine 06/23/2018 Results for this 3:00 PM CDT procedure are in the results section. TYPE AND SCREEN STAT 06/23/2018 2:20 PM CDT CBC/DIFF STAT 06/23/2018 Results for this 2:20 PM CDT procedure are in the results section. HIV-1/HIV-2 ROUTINE STAT 06/23/2018 Results for this SCREENING 2:20 PM CDT procedure are in the results section. U/S PELVIS LTD NON-OB STAT 06/05/2018 Pelvic [...] SCREEN STAT 06/05/2018 1:24 PM CDT after 07/22/2017 Results * UA CHEMISTRIES (06/23/2018 4:26 PM) Only the most recent of 2 results within the time period is included. Color Yellow BT MAIN-STATION 3 Clarity Hazy BT MAIN-STATION 3 Spec [place] 1.019 1.001 - 1.035 BT MAIN-STATION 3 [...] MAIN-STATION 3 Specimen Urine Performing Organization Address City/[facility] Number MISYS BT MAIN-STATION 3 * TEST (06/23/2018 4:26 PM) Negative BT MAIN-STATION 3 Specimen Urine Performing Organization Address [facility]/Zipcode Phone Number MISYS BT MAIN-STATION 3 * BMP POC (06/23/2018 3:00 PM) Only the most recent of 2 results [...] mg/dL BT MAIN-STATION 1 Urea Nitrogen POC 8 7 - 18 mg/dL BT MAIN-STATION 1 Creatinine POC 0.7 0.6 - 1.3 mg/dL BT MAIN-STATION 1 Calcium Ionized POC 1.18 1.15 - 1.29 mmol/L BT MAIN-STATION 1 Hemoglobin POC 16.7 (H) 12.0 - 16.0 g/dL BT MAIN-STATION 1 Hematocrit POC 49.0 (H) 37.0 - 47.0 % BT MAIN-STATION 1 GFR, Estimated >60 mL/min/1.73 m2 BT MAIN-STATION 1 GFR, Estim, Afr-Am >60 mL/min/1.73 m2 BT MAIN-STATION 1 Performing Organization Address [facility] Phone Number MISYS BT MAIN-STATION 1 * HIV-1/HIV-2 ROUTINE SCREENING (06/23/2018 2:20 PM) Only the most recent of 2 results within the time period is included. HIV-1/HIV-2 Negative NEG BT MAIN-STATION 4 Performing Organization Address [facility] Phone Number MISYS BT MAIN-STATION 4 * CBC/DIFF (06/23/2018 2:20 PM) Only the most recent of 2 results [...] K/uL BT MAIN-STATION 2 Absol Immat Gran 0.01 0.00 - 0.03 K/uL BT MAIN-STATION 2 Specimen Blood Performing Organization Address City/State/Zipcode Phone Number MISYS MAIN-STATION 2 * U/S PELVIS LTD NON-OB (06/05/2018 7:05 PM) Impressions Performed At IMPRESSION: SMS Unremarkable pelvic ultrasound exam. Dictated By: Brandon Duarte MD, 06/05/2018 7:26 PM I have reviewed the study and agree with the findings in this report. Signed By: Igor Liu MD, 06/05/2018 8:24 PM Narrative Performed At EXAM: Transabdominal and Transvaginal Pelvic Ultrasound [facility] INDICATION: pelvic pain COMPARISON: Pelvic ultrasound 10/22/2016 [...] Number SMS * U/S TRANSVAGINAL (06/05/2018 7:05 PM) Impressions Performed At IMPRESSION: SMS Unremarkable pelvic ultrasound exam. Dictated By: Brandon Duarte MD, 06/05/2018 7:26 PM I have reviewed the study and agree with the findings in this report. Signed By: Igor Liu MD, 06/05/2018 8:24 PM Narrative Performed At EXAM: Transabdominal and Transvaginal Pelvic Ultrasound [facility] INDICATION: pelvic pain COMPARISON: Pelvic ultrasound 10/22/2016 [...] MD, 06/05/2018 8:24 PM Performing Organization Address City/[facility]/[employer] Phone Number SMS * HCG, QUANTITATIVE (06/05/2018 1:59 PM) hCG, Quantitative <1 <5 mIU/mL BT MAIN-STATION 1 Specimen Blood Performing Organization Address [facility] Phone Number MISYS BT MAIN-STATION 1 * LIVER PROFILE (06/05/2018 1:59 PM) T [...] MAIN-STATION 1 Specimen Blood Performing Organization Address [facility]/[employer] Phone Number MISYS BT MAIN-STATION 1 * LIPASE (06/05/2018 1:59 PM) Lipase 34 11 - 82 U/L BT MAIN-STATION 1 Specimen Blood Performing Organization Address [facility]/[employer] Phone Number MISYS BT MAIN-STATION 1 after 07/22/2017
--- OUTSIDE RECORDS SUMMARY | 2018-08-31 08:28 | XMS REPORT | CCD ---
Author Author Auto Generated Organization [facility] Address Unknown Phone Unavailable Care Team Providers Care Crepe Maker Name Role Phone Aixa Silva CP Allergies, Adverse Reactions, Alerts Substance Reaction Status penicillins Active Problem List Condition Effective Dates Status Seizure Active Seizure Active Medications Medication Instructions Start Date End Date Status Depakote Sprinkles 125 mg, 1 cap, Route: PO, Drug 01/07/2012 01/07/2012 Discontinued form: CAP, Daily, Start date: 01/07/12 19:00:00, Duration: 30 day, Stop date: 02/05/12 19:00:00 Celexa 10 mg, 1 tab, Route: PO, Drug form: 01/07/2012 01/07/2012 Discontinued TAB, QAM, Start date: 01/07/12 7:00:00, Duration: 30 day, Stop date: 02/05/12 7:00:00 Cerebyx 1,254 mg, 25.08 mL, Route: IV, Drug 01/07/2012 01/07/2012 Discontinued form: INJ, PRN, PRN Seizure, Start date: 01/07/12 6:24:00, Duration: 30 day, Stop date: 02/06/12 6:23:00 Diastat 15 mg, 1.5 mL, Route: UT, Drug 01/07/2012 01/07/2012 Discontinued form: GEL, PRN, PRN Seizure, Start date: 01/07/12 6:22:00, Duration: 30 day, Stop date: 02/06/12 6:21:00 Valium 5 mg, 1 mL, Route: IV, Drug form: 01/07/2012 01/07/2012 Discontinued INJ, PRN, PRN Seizure, Start date: 01/07/12 6:19:00, Duration: 30 day, Stop date: 02/06/12 6:18:00 Synera 1 patch, Route: TOP, Drug Form: 01/05/2012 01/06/2012 Discontinued FILM, PRN, PRN Procedure, Start date: 01/05/12 4:12:00, Duration: 30 day, Stop date: 02/04/12 4:11:00 ethyl chloride 1 spray, Route: TOP, PRN, Drug 01/05/2012 01/06/2012 Discontinued topical form: SPRY PRN Procedure, Start date: 01/05/12 4:11:00, Duration: 30 day, Stop date: 02/04/12 4:10:00 Depakote ER 500 mg, 2 tab, Route: PO, Drug 01/05/2012 01/05/2012 Completed form: ERTAB, ONCE, Start date: 01/05/12 21:00:00, Stop date: 01/05/12 21:00:00 Depakote ER 500 mg, 2 tab, Route: PO, Drug 01/06/2012 01/06/2012 Discontinued form: ERTAB, Daily, Start date: 01/06/12 19:00:00, Stop date: 02/03/12 19:00:00 Celexa 10 mg, 1 tab, Route: PO, Drug form: 01/05/2012 01/06/2012 Discontinued TAB, QAM, Start date: 01/05/12 7:00:00, Duration: 30 day, Stop date: 02/03/12 7:00:00 Depakote Sprinkles 125 mg, 1 cap, Route: PO, Drug 01/05/2012 01/06/2012 Discontinued form: CAP, Daily, Start date: 01/05/12 19:00:00, Duration: 30 day, Stop date: 02/03/12 19:00:00 Depakote ER 500 mg, 1 tab, Route: PO, Drug 01/05/2012 01/05/2012 Discontinued form: ERTAB, Daily, Start date: 01/05/12 19:00:00, Duration: 30 day, Stop date: 02/03/12 19:00:00 Ativan 6 mg, 3 mL, Route: IV, Drug form: 01/06/2012 01/07/2012 Discontinued INJ, PRN, PRN Seizure, Start date: 01/06/12 23:49:00, Duration: 30 day, Stop date: 02/05/12 23:48:00 Ativan 6 mg, 3 mL, Route: IV, Drug form: 01/05/2012 01/06/2012 Discontinued INJ, PRN, PRN Seizure, Start date: 01/05/12 4:09:00, Duration: 30 day, Stop date: 02/04/12 4:08:00 Depakote ER 250 mg, 1 tab, Route: PO, Drug 01/07/2012 01/07/2012 Discontinued form: ERTAB, Daily, Start date: 01/07/12 19:00:00, Stop date: 02/05/12 19:00:00 Vital Signs Most recent to oldest [Reference Range]: 1 2 3 Height 151.00 cm (01/05/2012 02:00:00) Temperature Oral [96.8-99.7 DegF] 98.3 DegF (01/07/2012 09:00:00) 99.0 DegF (01/06/2012 22:55:00) 98.1 DegF (01/06/2012 20:59:00) Systolic Blood Pressure [90-138 mmHg] 100 mmHg (01/07/2012 09:00:00) 93 mmHg (01/06/2012 22:55:00) 108 mmHg (01/06/2012 20:59:00) Diastolic Blood Pressure [45-84 mmHg] 63 mmHg (01/07/2012 09:00:00) 62 mmHg (01/06/2012 22:55:00) 67 mmHg (01/06/2012 20:59:00) Respiratory Rate [14-20 BRMIN] 20 BRMIN (01/07/2012 09:00:00) 19 BRMIN (01/06/2012 22:55:00) 18 BRMIN (01/06/2012 20:59:00) Peripheral Pulse Rate [55-90 bpm] 90 bpm (01/07/2012 09:00:00) 82 bpm (01/06/2012 22:55:00) 79 bpm (01/06/2012 20:59:00) Weight 62.700 kg (01/05/2012 02:00:00) 68.182 kg (01/04/2012 22:41:00) Results CHEMISTRY Most recent to oldest [Reference Range]: 1 Sodium Lvl [135-145 mEq/L] 141 mEq/L (01/04/2012 22:56:00) Potassium Lvl [3.5-5.1 mEq/L] 4.1 mEq/L (01/04/2012 22:56:00) Chloride Lvl [95-109 mEq/L] 106 mEq/L (01/04/2012 22:56:00) CO2 [24-32 mEq/L] 23 mEq/L *LOW* (01/04/2012 22:56:00) Creatinine Lvl [0.5-1.4 mg/dL] 0.7 mg/dL (01/04/2012 22:56:00) BUN [7-22 mg/dL] 9 mg/dL (01/04/2012 22:56:00) Glucose Lvl [70-99 mg/dL] 83 mg/dL 1 (01/04/2012 22:56:00) Total Protein [6.4-8.4 g/dL] 8.1 g/dL (01/04/2012 22:56:00) Albumin Lvl [3.5-5.0 g/dL] 4.1 g/dL (01/04/2012 22:56:00) Calcium Lvl [8.5-10.5 mg/dL] 9.1 mg/dL (01/04/2012 22:56:00) Phosphorus [2.5-4.5 mg/dL] 4.5 mg/dL (01/04/2012 22:56:00) Magnesium Lvl [1.8-2.4 mg/dL] 2.0 mg/dL (01/04/2012 22:56:00) ALT [0-65 U/L] 16 U/L (01/04/2012 22:56:00) AST [0-37 U/L] 10 U/L (01/04/2012 22:56:00) Alk Phos [39-136 U/L] 78 U/L (01/04/2012 22:56:00) Bili Total [0.2-1.3 mg/dL] 0.2 mg/dL (01/04/2012 22:56:00) Bili Direct [0.0-0.3 mg/dL] 0.1 mg/dL (01/04/2012 22:56:00) Bili Indirect [0.0-1.0 mg/dL] 0.1 mg/dL (01/04/2012 22:56:00) Ammonia [<=45.0 uMol/L] 35.0 uMol/L (01/04/2012 23:59:00) Lactic Acid Lvl [0.5-2.2 mMol/L] 0.9 mMol/L (01/04/2012 22:56:00) Total CK [12-191 U/L] 161 U/L (01/04/2012 22:56:00) Trig [0-200 mg/dL] 148 mg/dL (01/04/2012 22:56:00) U Preg [Negative] Negative (01/05/2012 01:50:00) pH Olvin [7.28-7.42] 7.42 (01/05/2012 00:47:00) pCO2 Olvin [38-52 mmHg] 42 mmHg (01/05/2012 00:47:00) pO2 Olvin [20-49 mmHg] 59 mmHg *HI* (01/05/2012 00:47:00) HCO3 Olvin [22.0-26.0 mMol/L] 27.2 mMol/L *HI* (01/05/2012 00:47:00) BE Olvin [-2-2 mMol/L] 2 mMol/L (01/05/2012 00:47:00) O2 Sat Olvin [40.0-70.0 %] 91.0 % *HI* (01/05/2012 00:47:00) Temp Olvin 37.0 DegC *NA* (01/05/2012 00:47:00) 1Interpretive Data: Adult reference range values reflect the clinical guidelinesof the [place] [employer]. HEMATOLOGY Most recent to oldest [Reference Range]: 1 WBC [3.7-10.4 K/CMM] 6.0 K/CMM (01/04/2012 22:56:00) RBC [4.20-5.40 M/CMM] 4.19 M/CMM *LOW* (01/04/2012 22:56:00) Hgb [12.0-16.0 g/dL] 12.8 g/dL (01/04/2012 22:56:00) Hct [36.0-48.0 %] 38.7 % (01/04/2012 22:56:00) MCV [81.0-99.0 fL] 92.2 fL (01/04/2012 22:56:00) MCH [27.0-31.0 pg] 30.4 pg (01/04/2012 22:56:00) MCHC [32.0-36.0 g/dL] 33.0 g/dL (01/04/2012 22:56:00) RDW [11.5-14.5 %] 12.9 % (01/04/2012 22:56:00) Platelet [133-450 K/CMM] 194 K/CMM (01/04/2012 22:56:00) MPV [7.4-10.4 fL] 11.4 fL *HI* (01/04/2012 22:56:00) Segs [45.0-75.0 %] 50.7 % (01/04/2012 22:56:00) Lymphocytes [20.0-40.0 %] 40.1 % *HI* (01/04/2012 22:56:00) Monocytes [2.0-12.0 %] 8.1 % (01/04/2012 22:56:00) Eosinophils [0.0-4.0 %] 0.6 % (01/04/2012 22:56:00) Basophils [0.0-1.0 %] 0.5 % (01/04/2012 22:56:00) Segs-Bands # [1.5-8.1 K/CMM] 3.1 K/CMM (01/04/2012 22:56:00) Lymphocytes # [1.0-5.5 K/CMM] 2.4 K/CMM (01/04/2012 22:56:00) Monocytes # [0.0-0.8 K/CMM] 0.5 K/CMM (01/04/2012 22:56:00) Eosinophils # [0.0-0.5 K/CMM] 0.0 K/CMM (01/04/2012 22:56:00) Basophils # [0.0-0.2 K/CMM] 0.0 K/CMM (01/04/2012 22:56:00) RBC Morph Normal (01/04/2012 22:56:00) Large Plt [None Seen] Slight *ABN* (01/04/2012 22:56:00) IMMUNOLOGY Most recent to oldest [Reference Range]: 1 RPR [Non Reactive] Non Reactive (01/06/2012 10:47:00)
--- OUTSIDE RECORDS SUMMARY | 2018-08-31 08:28 | XMS REPORT | Clinical Summary ---
Author Author [facility] Organization [facility] Address Unknown Phone Unavailable Care Team Providers Care Chicken Sexer Name Role Phone PCP Unavailable Allergies Active [...] in female - (Primary Dx) 06/06/2018 after 07/13/2017 Immunizations Name Dates Previously Given Next Due [...] SCREEN STAT 06/05/2018 1:24 PM CDT after 07/13/2017 Results * UA CHEMISTRIES (06/23/2018 4:26 PM) Only the most recent of 2 results within the time period is included. Color Yellow BT MAIN-STATION 3 Clarity Hazy BT MAIN-STATION 3 Spec [place] 1.019 1.001 - 1.035 BT MAIN-STATION 3 [...] MAIN-STATION 3 Specimen Urine Performing Organization Address City/[facility] [place] Phone Number MISYS BT MAIN-STATION 3 * TEST (06/23/2018 4:26 PM) Negative BT MAIN-STATION 3 Specimen Urine Performing Organization Address [facility]/Zipcode Phone Number MISYS BT MAIN-STATION 3 [...] m2 BT MAIN-STATION 1 Performing Organization Address [facility] Phone Number MISYS BT MAIN-STATION 1 * HIV-1/HIV-2 ROUTINE SCREENING (06/23/2018 2:20 PM) Only the most recent of 2 results within the time period is included. HIV-1/HIV-2 Negative NEG BT MAIN-STATION 4 Performing Organization Address [facility] Phone Number MISYS BT MAIN-STATION 4 * [...] At EXAM: Transabdominal and Transvaginal Pelvic Ultrasound [facility] INDICATION: pelvic pain COMPARISON: Pelvic ultrasound 10/22/2016 [...] At EXAM: Transabdominal and Transvaginal Pelvic Ultrasound [facility] INDICATION: pelvic pain COMPARISON: Pelvic ultrasound 10/22/2016 [...] MD, 06/05/2018 8:24 PM Performing Organization Address City/[place]/[employer] Phone Number SMS * HCG, QUANTITATIVE (06/05/2018 1:59 PM) hCG, Quantitative <1 <5 mIU/mL BT MAIN-STATION 1 Specimen Blood Performing Organization Address [facility]Stat[email or web address] Phone Number MISYS BT MAIN-STATION 1 * [...] MAIN-STATION 1 Specimen Blood Performing Organization Address [facility]/[employer] Phone Number MISYS BT MAIN-STATION 1 * LIPASE (06/05/2018 1:59 PM) Lipase 34 11 - 82 U/L BT MAIN-STATION 1 Specimen Blood Performing Organization Address [facility]/[employer] Phone Number MISYS BT MAIN-STATION 1 after 07/13/2017
--- OUTSIDE RECORDS SUMMARY | 2018-08-31 08:28 | XMS REPORT | Clinical Summary ---
Author Author [facility] Organization [facility] Address Unknown Phone Unavailable Care Team Providers Care Director Credit Risk Name Role Phone PCP Unavailable Allergies Active [...] in female - (Primary Dx) 06/06/2018 after 06/23/2017 Immunizations Name Dates Previously Given Next Due [...] SCREEN STAT 06/05/2018 1:24 PM CDT after 06/23/2017 Results * UA CHEMISTRIES (06/23/2018 4:26 PM) Only the most recent of 2 results within the time period is included. Color Yellow BT MAIN-STATION 3 Clarity Hazy BT MAIN-STATION 3 Spec [place] 1.019 1.001 - 1.035 BT MAIN-STATION 3 [...] MAIN-STATION 3 Specimen Urine Performing Organization Address City/[facility] Phone Number MISYS BT MAIN-STATION 3 * TEST (06/23/2018 4:26 PM) Negative BT MAIN-STATION 3 Specimen Urine Performing Organization Address [facility]/Zipcode Phone Number MISYS BT MAIN-STATION 3 * [...] m2 BT MAIN-STATION 1 Performing Organization Address [facility] Phone Number MISYS BT MAIN-STATION 1 * HIV-1/HIV-2 ROUTINE SCREENING (06/23/2018 2:20 PM) Only the most recent of 2 results within the time period is included. HIV-1/HIV-2 Negative NEG BT MAIN-STATION 4 Performing Organization Address [facility] Cent[facility] Phone Number MISYS BT [...] At EXAM: Transabdominal and Transvaginal Pelvic Ultrasound [facility] INDICATION: pelvic pain COMPARISON: Pelvic ultrasound 10/22/2016 [...] At EXAM: Transabdominal and Transvaginal Pelvic Ultrasound [facility] INDICATION: pelvic pain COMPARISON: Pelvic ultrasound 10/22/2016 [...] MD, 06/05/2018 8:24 PM Performing Organization Address City/[employer] Phone Number SMS * HCG, QUANTITATIVE (06/05/2018 1:59 PM) hCG, Quantitative <1 <5 mIU/mL BT MAIN-STATION 1 Specimen Blood Performing Organization Address [facility] Centercanvs[facility] Phone Number MISYS BT MAIN-STATION 1 * [...] MAIN-STATION 1 Specimen Blood Performing Organization Address [facility]/[employer] Phone Number MISYS BT MAIN-STATION 1 * LIPASE (06/05/2018 1:59 PM) Lipase 34 11 - 82 U/L BT MAIN-STATION 1 Specimen Blood Performing Organization Address [facility]/[employer] Phone Number MISYS BT MAIN-STATION 1 after 06/23/2017
--- OUTSIDE RECORDS SUMMARY | 2018-08-31 08:28 | XMS REPORT | CCD ---
Author Author Auto Generated Organization [facility] Address Unknown Phone Unavailable Care Team Providers Care Steamboat Pilot Name Role Phone Jan Padgett RP Allergies, Adverse Reactions, Alerts Substance Reaction Status penicillins Active Problem List Condition Effective Dates Status Seizure Active Seizure Active Vital Signs Most recent to oldest [Reference Range]: 1 Height 157.48 cm (01/20/2012 13:34:00) Weight 63.636 kg (01/20/2012 13:34:00)
--- OUTSIDE RECORDS SUMMARY | 2018-08-31 08:28 | XMS REPORT ---
Author Author [facility] Address Unknown Phone Unavailable Care Team Providers Care Singer And Unloader Name Role Phone Unavailable Unavailable Payers Payer Name Policy Type Policy Number Effective Date Expiration Date Problems This patient has no known problems. Allergies, Adverse Reactions, Alerts Allergy Name Allergy Type Status Severity Reaction(s) Onset Date Inactive Date Treating Clinician Comments Penicillins DA Active SV 2018-06-28 00:00:00 Penicillins DA Active SV 2018-02-16 00:00:00 Medications This patient has no known medications. Encounters Start Date/Time End Date/Time Encounter Type Admission Type Attending Clinicians Care Facility Care Department Encounter ID 2018-06-23 16:23:05 2018-06-23 16:23:05 Emergency [facility] [id number] 2018-06-05 18:01:44 2018-06-05 18:01:44 Outpatient [facility] [id number] 2018-06-05 13:15:00 2018-06-05 13:15:00 Emergency [facility] [id number]
[2018-08-31] MEDS ORDERED: PANTOPRAZOLE 40 MG 10ML VIAL IV STA (08:38)
[2018-08-31] MEDS ORDERED: ONDANSETRON HCL INJ 2 MG/ML VIAL IV STA (08:38)
[2018-08-31] MEDS ORDERED: MORPHINE SULFATE 2 MG/ML SYR IV STA (08:38)
[2018-08-31] MEDS ORDERED: MORPHINE SULFATE INJ 4 MG/ML INJ IV SCH (09:00)
[2018-08-31 09:26] LABS: BILIRUBIN,URINE NEGATIVE (NEGATIVE); CLARITY,URINE SL CLOUDY (CLEAR); COLOR,URINE YELLOW (YELLOW); KETONES,URINE NEGATIVE (NEGATIVE); LEUKOCYTE ESTERASE ,URINE 1+ (NEGATIVE); NITRITE,URINE NEGATIVE (NEGATIVE); PREGNANCY TEST, URINE NEGATIVE (NEGATIVE); PROTEIN,URINE DIPSTICK NEGATIVE (NEGATIVE); URINE UROBILINOGEN 0.2 mg/dL (0.2 - 1)
[2018-08-31 10:03] LABS: BACTERIA,URINE MODERATE /HPF; EPITHELIAL CELLS,URINE MANY /LPF
[2018-08-31 10:13] LABS: BASOPHILS % 0.7 % (0.0-1.0); EOSINOPHILS % 0.7 % (0.0-6.0); LYMPHOCYTES # (AUTO) 1.8 (1.0-3.2); LYMPHOCYTES % 40.7 % (18.0-39.1); MEAN CORPUSCULAR HGB CONC 32.6 g/dL (31-35); MEAN CORPUSCULAR VOLUME 92.1 fL (81-99); MONOCYTES # (AUTO) 0.3 (0.2-0.8); MONOCYTES % 6.7 % (4.4-11.3); NEUTROPHILS # (AUTO) 2.3 (2.1-6.9); PLATELET COUNT 314 x10e3/uL (140-360); RED BLOOD COUNT 4.67 x10e6/uL (3.6-5.1)
[2018-08-31 10:32] LABS: ALANINE AMINOTRANSFERASE 14 IU/L (0-55); ALBUMIN 4.2 g/dL (3.5-5.0); ALKALINE PHOSPHATASE 67 IU/L (40-150); AMYLASE 65 U/L (25-125); ANION GAP 13.9 mmol/L (8-16); BLOOD UREA NITROGEN 9 mg/dL (7-26); BUN/CREATININE RATIO 11 (6-25); CALCIUM 9.7 mg/dL (8.4-10.2); CARBON DIOXIDE 25 mmol/L (22-29); CHLORIDE 102 mmol/L (98-107); CREATININE, SERUM 0.81 mg/dL (0.57-1.11); EST GLOMERULAR FILTRATION RATE > 60 ML/MIN (60-); GLUCOSE 90 mg/dL (74-118); LIPASE 36 U/L (8-78); POTASSIUM 3.9 mmol/L (3.5-5.1); SODIUM 137 mmol/L (136-145)
[2018-08-31 12:06] VITALS: BP 123/85
== END 2018-08-31 12:11 | disposition home or self-care (01) ==
LOC: ER 08:22
DX: R10.13 Epigastric pain (principal); K29.00 Acute gastritis without bleeding; Z87.11 Personal history of peptic ulcer disease; G40.909 Epilepsy, unspecified, not intractable, without status epilepticus
CPT/HCPCS: 36415; 80053; 81001; 81025; 82150; 83690; 85025; 99284; J2270; J2405

== ENCOUNTER 2018-10-12 13:14 | Emergency (ER) | payer SELFPAY ==
[~2018-10-12] VITALS: Ht 154.9 cm; Wt 79.4 kg
--- OUTSIDE RECORDS SUMMARY | 2018-10-12 13:18 | XMS REPORT | Clinical Summary ---
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 Color Yellow BT MAIN-STATION 3 Clarity Hazy BT MAIN-STATION 3 Spec [place] 1.019 1.001 - 1.035 BT MAIN-STATION 3 [...] MAIN-STATION 3 Specimen Urine Performing Organization Address [facility] Phone Number MISYS BT MAIN-STATION 3 * [...] BT MAIN-STATION Afr-Am 1 Performing Organization Address [facility] Phone Number MISYS BT MAIN-STATION 1 * HIV-1/HIV-2 ROUTINE SCREENING (06/23/2018 2:20 PM CDT) Only the most recent of 2 results within the time period is included. HIV-1/HIV-2 Negative NEG BT MAIN-STATION 4 Performing Organization Address [facility] Phone Number MISYS BT MAIN-STATION 4 * [...] MD, 06/05/2018 8:24 PM Performing Organization Address City/State/[facility] Phone Number SMS * HCG, QUANTITATIVE (06/05/2018 1:59 PM CDT) hCG, <1 <5 mIU/mL BT MAIN-STATION Quantitative 1 Specimen Blood Performing Organization Address City/[facility] Phone Number MISYS BT MAIN-STATION 1 * [...] MAIN-STATION 1 Specimen Blood Performing Organization Address City/[facility] Phone Number MISYS BT MAIN-STATION 1 * LIPASE (06/05/2018 1:59 PM CDT) Lipase 34 11 - 82 U/L BT MAIN-STATION 1 Specimen Blood Performing Organization Address City/[facility] Phone Number MISYS BT MAIN-STATION 1 after 10/11/2017 Insurance Type Payer Benefit Subscriber ID Effective Phone Address Plan / Dates Group [facility] SELF-PAY [facility] xxxxxxxxx 2015- [phone] [id number] [facility] [place] [place] [address]
--- OUTSIDE RECORDS SUMMARY | 2018-10-12 13:18 | XMS REPORT | Clinical Summary ---
Author Author [facility] Organization [facility] Address Unknown Phone Unavailable Care Team Providers Care Mobile Battery Technician Name Role Phone Provider, Unknown PCP Unavailable [...] (Primary Dx) 05/07/2018 Emergency Emergency Medicine after 10/11/2017 Social History Date Tobacco Use Types Packs/Day [...] PANEL STAT 05/07/2018 2:47 PM CDT after 10/11/2017 Results * CT Head Wo Contrast (05/07/2018 3:03 PM CDT) Narrative Performed At EXAMINATION:[facility] WAS PERFORMED WITH ITERATIVE RECONSTRUCTION [...] demonstrated nor change from the prior study. [id number] Procedure Note Interface, Radiology Results Incoming - [...] demonstrated nor change from the prior study. [id number] Performing Organization Address City/State/Zipcode Phone Number [facility] [address] [place] [address] * Estimated GFR (05/07/2018 2:47 PM CDT) GFR Non Af Amer 89 mL/min/1.73 m2 [facility] [facility] [place]ICINE GFR Af Amer >90 mL/min/1.73 m2 [facility] [place] Comment: PATHOLOGY AND Chronic kidney [...] Americans. Specimen Plasma specimen Performing Organization Address City/[facility] [place] [address] PATHOLOGY AND [facility] * hCG qualitative, serum screen (05/07/2018 2:47 PM CDT) hCG qualitative, serum Negative [facility] [place] [facility] [place] Comment: PATHOLOGY AND The manufacturers stated [facility] sensitivity of HcG test for serum is >/=10 mIU/ml and urine is >/=20mIU/ml. Specimen Blood Performing Organization Address [facility] [place] [address] PATHOLOGY AND [facility] * Basic metabolic panel (05/07/2018 2:47 PM CDT) Sodium 140 135 - 150 mEq/L [facility] [place] [facility] Potassium 3.8 3.5 - 5.0 mEq/L [facility] [place] [facility] [place] [facility] Chloride 99 98 - 112 mEq/L [facility] [place] [facility] [place]OLOGY AND [facility] CO2 27 24 - 31 mmol/L [facility] [place] [facility] [place]OLOGY AND [facility] Anion gap 14@ANIO 7 - 15 mEq/L [facility] [place] [facility] [place]OLOGY AND [facility] BUN 9 7 - 18 mg/dL [facility] [place] [facility] [place]Y AND [facility] Creatinine 0.80 0.50 - 0.90 mg/dL [facility] [place] [facility] [place] AND [facility] Glucose 79 65 - 100 mg/dL [facility] [place] [facility] [place]Y AND [facility] Calcium 10.0 8.3 - 10.2 mg/dL [facility] OF PATHOLOGY AND [facility] Specimen Plasma specimen Performing Organization Address City/[facility] [place] [address] PATHOLOGY AND [facility] after 10/11/2017 Advance Directives Patient has advance care planning documents on file. For more information, nolvia quinones contact: Wood Boyle [address] [address]
--- OUTSIDE RECORDS SUMMARY | 2018-10-12 13:19 | XMS REPORT | Continuity of Care Document ---
Author Author [facility] Interface Address Unknown Phone Unavailable Problems Problem Status Onset Date Classification Date Reported Comments Source Irregular periods Active 06/23/2018 Problem 07/23/2018 [facility] Pelvic pain in female Active 06/05/2018 Problem 07/23/2018 [facility] ACUTE APPENDICITIS WITH GENERALIZED PERITONITIS Active 03/29/2014 Condition 03/29/2014 [facility] SEIZURES Active 05/15/2012 [facility] SYNCOPE Active 05/05/2012 [facility] PEDI/CCL/R Active 05/05/2012 [facility] SEZURES Active 01/04/2012 [facility] Urinary tract infection Active 12/09/2011 Problem 07/23/2018 [facility] AMS Active 09/24/2011 [facility] Seizure Active Problem 06/25/2012 [facility] Pseudoseizure Active Problem 07/23/2018 [facility] Mood disorder Active Problem 07/23/2018 [facility] FEBRILE CONVULSIONS NOS Active [facility] Medications Medication Details Route Status Patient Instructions Ordering Provider Order Date Source Levonorgestrel-Ethinyl Estradiol 0.1 Mg-20 McG Tablet Lutera (28) 0.1 Mg-20 McG Tablet Take 1 tablet by mouth daily As directed on the pouch. Oral Active 06/23/2018 [facility] Ferrous Sulfate 325 Mg (65 Mg Iron) Tablet Feosol 325 Mg (65 Mg Iron) Tablet Take 1 tablet by mouth daily (with breakfast) While you are bleeding. Oral Active 06/23/2018 [facility] Ibuprofen 800 Mg Tablet Take 1 tablet by mouth every 8 hours as needed for Pain. Oral Active 10/22/2016 [facility] Florinef Acetate 0.1 mg, 1 tab, Route: PO, Drug form: TAB, Daily, Dosing Weight 70.1, kg, Start date: 06/24/12 9:00:00, Duration: 30 day, Stop date: 07/23/12 9:00:00 PO No Longer Active [facility] 06/24/2012 [facility] Depakote Sprinkles 125 mg, 1 cap, Route: PO, Drug form: CAP, Daily, Dosing Weight 70.1, kg, Start date: 06/24/12 9:00:00, Duration: 30 day, Stop date: 07/23/12 9:00:00 PO No Longer Active [facility] 06/24/2012 [facility] Depakote ER 500 mg, 1 tab, Route: PO, Drug form: ERTAB, Daily, Dosing Weight 70.1, kg, Start date: 06/24/12 9:00:00, Duration: 30 day, Stop date: 07/23/12 9:00:00 PO No Longer Active [facility] 06/24/2012 [facility] influenza virus vaccine, inactivated 0.5 ml, Route: IM, Drug Form: INJ, ONCALL, Start date: 06/23/12 20:30:00, Duration: 0 IM No Longer Active [facility] 06/24/2012 [facility] Tylenol 650 mg, 2 tab, Route: PO, Drug form: TAB, Q4H, PRN Pain Score 1-3, Start date: 06/23/12 19:41:00, Duration: 30 day, Stop date: 07/23/12 19:40:00 PO No Longer Active [facility] 06/24/2012 [facility] propranolol 80 mg oral capsule, extended release 80 mg, 1 cap, PO, Daily, 30 cap, 3, 3, Substitution Allowed PO Active [facility] 06/23/2012 [facility] ondansetron 4 mg, 5 mL, Route: PO, Drug form: SOLN, Q6H, Dosing Weight 70.1, kg, PRN Nausea & Vomiting, Start date: 06/23/12 15:22:00, Duration: 30 day, Stop date: 07/23/12 15:21:00 PO No Longer Active [facility] 06/23/2012 [facility] acetaminophen 650 mg, 20.3 mL, Route: PO, Drug form: LIQ, Q4H, Dosing Weight 70.1, kg, PRN Pain Score 1-3, Start date: 06/23/12 15:22:00, Duration: 30 day, Stop date: 07/23/12 15:21:00 PO No Longer Active [facility] 06/23/2012 [facility] D5W 1/2NS + KCL 20mEq/L 1000ml (Premix) 1,000 mL 1,000 mL, Rate: 100 ml/hr, Infuse over: 10 hr, Route: IV, kg, Total Volume: 1,000, Start date: 06/23/12 15:22:00, Duration: 30 day, Stop date: 07/23/12 15:21:00 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 [facility] propranolol 80 mg oral tablet 80 mg, 1 tab, PO, BID, 60 tab, Substitution Allowed, TAB PO No Longer Active 06/23/2012 [facility] Florinef Acetate 0.1 mg oral tablet 0.1 mg, 1 tab, PO, Daily, 30 tab, Substitution Allowed, TAB PO Active 06/23/2012 [facility] Depakote Sprinkles 125 mg, 1 cap, Route: PO, Drug form: CAP, Daily, Start date: 01/07/12 19:00:00, Duration: 30 day, Stop date: 02/05/12 19:00:00 PO No Longer Active Reza 01/08/2012 [facility] Depakote ER 250 mg, 1 tab, Route: PO, Drug form: ERTAB, Daily, Start date: 01/07/12 19:00:00, Stop date: 02/05/12 19:00:00 PO No Longer Active Syed 01/08/2012 [facility] Celexa 10 mg, 1 tab, Route: PO, Drug form: TAB, QAM, Start date: 01/07/12 7:00:00, Duration: 30 day, Stop date: 02/05/12 7:00:00 PO No Longer Active Reza 01/07/2012 [facility] Cerebyx 1,254 mg, 25.08 mL, Route: IV, Drug form: INJ, PRN, PRN Seizure, Start date: 01/07/12 6:24:00, Duration: 30 day, Stop date: 02/06/12 6:23:00 IV No Longer Active Chamdl 01/07/2012 [facility] Diastat 15 mg, 1.5 mL, Route: NE, Drug form: GEL, PRN, PRN Seizure, Start date: 01/07/12 6:22:00, Duration: 30 day, Stop date: 02/06/12 6:21:00 NE No Longer Active Chahil 01/07/2012 [facility] Valium 5 mg, 1 mL, Route: IV, Drug form: INJ, PRN, PRN Seizure, Start date: 01/07/12 6:19:00, Duration: 30 day, Stop date: 02/06/12 6:18:00 IV No Longer Active Chahil 01/07/2012 [facility] Ativan 6 mg, 3 mL, Route: IV, Drug form: INJ, PRN, PRN Seizure, Start date: 01/06/12 23:49:00, Duration: 30 day, Stop date: 02/05/12 23:48:00 IV No Longer Active Reza 01/07/2012 [facility] Depakote ER 500 mg, 2 tab, Route: PO, Drug form: ERTAB, Daily, Start date: 01/06/12 19:00:00, Stop date: 02/03/12 19:00:00 PO No Longer Active Syed 01/07/2012 [facility] Depakote ER 500 mg, 2 tab, Route: PO, Drug form: ERTAB, ONCE, Start date: 01/05/12 21:00:00, Stop date: 01/05/12 21:00:00 PO No Longer Active Syed 01/06/2012 [facility] Depakote Sprinkles 125 mg, 1 cap, Route: PO, Drug form: CAP, Daily, Start date: 01/05/12 19:00:00, Duration: 30 day, Stop date: 02/03/12 19:00:00 PO No Longer Active Reza 01/06/2012 [facility] Depakote ER 500 mg, 1 tab, Route: PO, Drug form: ERTAB, Daily, Start date: 01/05/12 19:00:00, Duration: 30 day, Stop date: 02/03/12 19:00:00 PO No Longer Active Reza 01/06/2012 [facility] Celexa 10 mg, 1 tab, Route: PO, Drug form: TAB, QAM, Start date: 01/05/12 7:00:00, Duration: 30 day, Stop date: 02/03/12 7:00:00 PO No Longer Active Reza 01/05/2012 [facility] Synera 1 patch, Route: TOP, Drug Form: FILM, PRN, PRN Procedure, Start date: 01/05/12 4:12:00, Duration: 30 day, Stop date: 02/04/12 4:11:00 TOP No Longer Active Reza 01/05/2012 [facility] ethyl chloride topical 1 spray, Route: TOP, PRN, Drug form: SPRY PRN Procedure, Start date: 01/05/12 4:11:00, Duration: 30 day, Stop date: 02/04/12 4:10:00 TOP No Longer Active Reza 01/05/2012 [facility] Ativan 6 mg, 3 mL, Route: IV, Drug form: INJ, PRN, PRN Seizure, Start date: 01/05/12 4:09:00, Duration: 30 day, Stop date: 02/04/12 4:08:00 IV No Longer Active Reza 01/05/2012 [facility] Celexa Substitution Allowed Active 09/24/2011 [facility] Depakote Substitution Allowed Active 09/24/2011 [facility] Celexa 10 mg oral tablet 10 mg, 1 tab, PO, Daily, 30 tab, Substitution Allowed, TAB PO Active 09/20/2011 [facility] Depakote Sprinkles Substitution Allowed Active 09/20/2011 [facility] Depakote ER 500 mg oral tablet, extended release 500 mg, 1 tab, PO, Daily, 30 tab, Substitution Allowed, ERTAB PO Active 09/20/2011 [facility] Divalproex Er 500 Mg Tablet,Extended Release 24 Hr Take 500 mg by mouth daily. Oral Active [facility] Divalproex 125 Mg Capsule,Delayed Release Sprinkle Take 125 mg by mouth 2 times daily. Oral Active [facility] Allergies, Adverse Reactions, Alerts Substance Category Reaction Severity Reaction type Status Date Reported Comments Source Penicillins Hives High Propensity to adverse reactions to drug Active 06/11/2010 [facility] PENICILLIN Drug allergy PENICILLIN 03/29/2014 [facility] penicillins drug allergy Allergy Active [facility] Immunizations Immunization Date Given Site Status Last Updated Comments Source influenza virus vaccine, inactivated 06/24/2012 completed [facility] DTP Diphtheria, Tetanus, Pertussis Vaccine 07/20/1996 [facility] Hib Haemophilus Influenzae Type B 07/20/1996 [facility] MMR Measles, Mumps, Rubella Vaccine 07/20/1996 completed [facility] Hepatitis B Vaccine 02/09/1996 [facility] DTP Diphtheria, Tetanus, Pertussis Vaccine 02/09/1996 completed [facility] Hib Haemophilus Influenzae Type B 02/09/1996 completed [facility] Polio OPV 02/09/1996 completed [facility] DTP Diphtheria, Tetanus, Pertussis Vaccine 1995 completed [facility] Hib Haemophilus Influenzae Type B 1995 completed [facility] Polio OPV 1995 completed [facility] Hepatitis B Vaccine 1995 completed [facility] Results Order Name Results Value Reference Range Date Interpretation Comments Source HIV-1/HIV-2 ROUTINE SCREENING HIV-1/HIV-2 Negative NEG 06/23/2018 [facility] UA CHEMISTRIES Color Yellow 06/23/2018 [facility] UA CHEMISTRIES Clarity Hazy 06/23/2018 [facility] UA CHEMISTRIES Spec Arabi 1.019 1.001 - 1.035 06/23/2018 [facility] UA CHEMISTRIES pH 6.0 5 - 8 06/23/2018 [facility] UA CHEMISTRIES Protein 2+ NEG 06/23/2018 [facility] UA CHEMISTRIES Glucose Negative NEG 06/23/2018 [facility] UA CHEMISTRIES Ketone 1+ NEG 06/23/2018 [facility] UA CHEMISTRIES Bilirubin Negative NEG 06/23/2018 [facility] UA CHEMISTRIES Nitrate Negative NEG 06/23/2018 [facility] UA CHEMISTRIES Urobilinogen <1.0 0.2 - 1 06/23/2018 [facility] UA CHEMISTRIES Leukocyte Negative NEG 06/23/2018 [facility] UA CHEMISTRIES Blood 3+ NEG 06/23/2018 [facility] UA CHEMISTRIES RBC >182 0 - 4 06/23/2018 [facility] UA CHEMISTRIES WBC 16 0 - 5 06/23/2018 [facility] UA CHEMISTRIES Epithelial Cell 5 /HPF 06/23/2018 [facility] UA CHEMISTRIES Mucous Present 06/23/2018 [facility] UA CHEMISTRIES Lab Interpretation Abnormal 06/23/2018 [facility] TEST Negative 06/23/2018 [facility] CBC/DIFF WBC 4.6 K/uL 4.5 - 11 06/23/2018 [facility] CBC/DIFF RBC 4.37 4.20 - 5.40 06/23/2018 [facility] CBC/DIFF Hemoglobin 13.0 g/dL 12 - 16 06/23/2018 [facility] CBC/DIFF Hematocrit 39.2 % 37 - 47 06/23/2018 [facility] CBC/DIFF MCV 90 fL 82 - 92 06/23/2018 [facility] CBC/DIFF MCH 29.7 pg 27 - 32 06/23/2018 [facility] CBC/DIFF MCHC 33.2 g/dL 32 - 36 06/23/2018 [facility] CBC/DIFF RDW 44.0 fL 36.4 - 46.3 06/23/2018 [facility] CBC/DIFF Platelet 332 K/uL 150 - 400 06/23/2018 [facility] CBC/DIFF Mean Platelet Volume 11.1 fL 9.4 - 12.4 06/23/2018 [facility] CBC/DIFF Percent NRBC 0.0 06/23/2018 [facility] CBC/DIFF Absolute NRBC 0.00 06/23/2018 [facility] CBC/DIFF Neutrophil 49.2 % 34 - 70 06/23/2018 [facility] CBC/DIFF Lymphocyte 42.2 % 20 - 50 06/23/2018 [facility] CBC/DIFF Monocyte 7.1 % 5 - 12 06/23/2018 [facility] CBC/DIFF Eosinophil 0.9 % 0.7 - 5 06/23/2018 [facility] CBC/DIFF Basophil 0.4 % 0.1 - 1.2 06/23/2018 [facility] CBC/DIFF Pct Immat Gran 0.2 0.0 - 0.5 06/23/2018 [facility] CBC/DIFF Neutrophil, Abs 2.28 K/uL 1.56 - 6.13 06/23/2018 [facility] CBC/DIFF Lymphocyte, Abs 1.96 K/uL 1.18 - 3.74 06/23/2018 [facility] CBC/DIFF Monocyte, Abs 0.33 K/uL 0.24 - 0.36 06/23/2018 [facility] CBC/DIFF Eosinophil, Abs 0.04 K/uL 0.04 - 0.36 06/23/2018 [facility] CBC/DIFF Basophil, Abs 0.02 K/uL 0.01 - 0.08 06/23/2018 [facility] CBC/DIFF Absol Immat Gran 0.01 K/uL 0 - 0.03 06/23/2018 [facility] POC CO2 POC 27 mmol/L 21 - 32 06/23/2018 [facility] POC Chloride POC 101 mmol/L 98 - 107 06/23/2018 [facility] POC Potassium POC 3.9 mmol/L 3.5 - 5.1 06/23/2018 [facility] POC Sodium POC 140 mmol/L 136 - 145 06/23/2018 [facility] POC Glucose POC 77 mg/dL 74 - 106 06/23/2018 [facility] POC Urea Nitrogen POC 8 mg/dL 7 - 18 06/23/2018 [facility] POC Creatinine POC 0.7 mg/dL 0.6 - 1.3 06/23/2018 [facility] POC Calcium Ionized POC 1.18 mmol/L 1.15 - 1.29 06/23/2018 [facility] POC Hemoglobin POC 16.7 g/dL 12 - 16 06/23/2018 [facility] POC Hematocrit POC 49.0 % 37 - 47 06/23/2018 [facility] POC GFR, Estimated >60 mL/min/1.73 m2 06/23/2018 [facility] POC GFR, Estim, Afr-Am >60 mL/min/1.73 m2 06/23/2018 [facility] POC Lab Interpretation Abnormal 06/23/2018 [facility] U/S TRANSVAGINAL IMPRESSION: Unremarkable pelvic ultrasound exam. Dictated [...] Igor Liu MD, 06/05/2018 8:24 PM 06/06/2018 [facility] U/S PELVIS LTD NON-OB IMPRESSION: Unremarkable pelvic [...] Igor Liu MD, 06/05/2018 8:24 PM 06/06/2018 [facility] HIV-1/HIV-2 ROUTINE SCREENING HIV-1/HIV-2 Negative NEG 06/06/2018 [facility] HCG, QUANTITATIVE hCG, Quantitative <1 <5 mIU/mL 06/05/2018 [facility] UA CHEMISTRIES Color Yellow 06/05/2018 [facility] UA CHEMISTRIES Clarity Hazy 06/05/2018 [facility] UA CHEMISTRIES Spec Arabi 1.020 1.001 - 1.035 06/05/2018 [facility] UA CHEMISTRIES pH 6.0 5 - 8 06/05/2018 [facility] UA CHEMISTRIES Protein 1+ NEG 06/05/2018 [facility] UA CHEMISTRIES Glucose Negative NEG 06/05/2018 [facility] UA CHEMISTRIES Ketone Negative NEG 06/05/2018 [facility] UA CHEMISTRIES Bilirubin Negative NEG 06/05/2018 [facility] UA CHEMISTRIES Nitrate Negative NEG 06/05/2018 [facility] UA CHEMISTRIES Urobilinogen <1.0 0.2 - 1 06/05/2018 [facility] UA CHEMISTRIES Leukocyte 2+ NEG 06/05/2018 [facility] UA CHEMISTRIES Blood 2+ NEG 06/05/2018 [facility] UA CHEMISTRIES RBC 8 0 - 4 06/05/2018 [facility] UA CHEMISTRIES WBC 12 0 - 5 06/05/2018 [facility] UA CHEMISTRIES Bacteria Few 06/05/2018 [facility] UA CHEMISTRIES Epithelial Cell 26 /HPF 06/05/2018 [facility] UA CHEMISTRIES Mucous Present 06/05/2018 [facility] UA CHEMISTRIES Lab Interpretation Abnormal 06/05/2018 [facility] LIPASE Lipase 34 U/L 11 - 82 06/05/2018 [facility] LIVER PROFILE T Protein 8.0 g/dL 6 - 8.3 06/05/2018 [facility] LIVER PROFILE Albumin 4.9 g/dL 3.7 - 5.3 06/05/2018 [facility] LIVER PROFILE T Bilirubin 0.3 mg/dL 0.2 - 1.2 06/05/2018 [facility] LIVER PROFILE Alk Phos 72 U/L 34 - 104 06/05/2018 [facility] LIVER PROFILE AST 13 U/L 13 - 39 06/05/2018 [facility] LIVER PROFILE ALT 9 U/L 7 - 52 06/05/2018 [facility] LIVER PROFILE D Bilirubin 0.1 mg/dL 0 - 0.2 06/05/2018 [facility] CBC/DIFF WBC 4.4 K/uL 4.5 - 11 06/05/2018 [facility] CBC/DIFF RBC 4.61 4.20 - 5.40 06/05/2018 [facility] CBC/DIFF Hemoglobin 13.5 g/dL 12 - 16 06/05/2018 [facility] CBC/DIFF Hematocrit 41.9 % 37 - 47 06/05/2018 [facility] CBC/DIFF MCV 91 fL 82 - 92 06/05/2018 [facility] CBC/DIFF MCH 29.3 pg 27 - 32 06/05/2018 [facility] CBC/DIFF MCHC 32.2 g/dL 32 - 36 06/05/2018 [facility] CBC/DIFF RDW 45.1 fL 36.4 - 46.3 06/05/2018 [facility] CBC/DIFF Platelet 344 K/uL 150 - 400 06/05/2018 [facility] CBC/DIFF Mean Platelet Volume 11.1 fL 9.4 - 12.4 06/05/2018 [facility] CBC/DIFF Percent NRBC 0.0 06/05/2018 [facility] CBC/DIFF Absolute NRBC 0.00 06/05/2018 [facility] CBC/DIFF Neutrophil 41.8 % 34 - 70 06/05/2018 [facility] CBC/DIFF Lymphocyte 48.5 % 20 - 50 06/05/2018 [facility] CBC/DIFF Monocyte 7.7 % 5 - 12 06/05/2018 [facility] CBC/DIFF Eosinophil 0.9 % 0.7 - 5 06/05/2018 [facility] CBC/DIFF Basophil 1.1 % 0.1 - 1.2 06/05/2018 [facility] CBC/DIFF Pct Immat Gran 0.0 0.0 - 0.5 06/05/2018 [facility] CBC/DIFF Neutrophil, Abs 1.83 K/uL 1.56 - 6.13 06/05/2018 [facility] CBC/DIFF Lymphocyte, Abs 2.13 K/uL 1.18 - 3.74 06/05/2018 [facility] CBC/DIFF Monocyte, Abs 0.34 K/uL 0.24 - 0.36 06/05/2018 [facility] CBC/DIFF Eosinophil, Abs 0.04 K/uL 0.04 - 0.36 06/05/2018 [facility] CBC/DIFF Basophil, Abs 0.05 K/uL 0.01 - 0.08 06/05/2018 [facility] CBC/DIFF Absol Immat Gran 0.00 K/uL 0 - 0.03 06/05/2018 [facility] CBC/DIFF Lab Interpretation Abnormal 06/05/2018 [facility] POC CO2 POC 26 mmol/L 21 - 32 06/05/2018 [facility] POC Chloride POC 102 mmol/L 98 - 107 06/05/2018 [facility] POC Potassium POC 4.1 mmol/L 3.5 - 5.1 06/05/2018 [facility] POC Sodium POC 140 mmol/L 136 - 145 06/05/2018 [facility] POC Glucose POC 96 mg/dL 74 - 106 06/05/2018 [facility] POC Urea Nitrogen POC 10 mg/dL 7 - 18 06/05/2018 [facility] POC Creatinine POC 0.7 mg/dL 0.6 - 1.3 06/05/2018 [facility] POC Calcium Ionized POC 1.21 mmol/L 1.15 - 1.29 06/05/2018 [facility] POC Hemoglobin POC 16.0 g/dL 12 - 16 06/05/2018 [facility] POC Hematocrit POC 47.0 % 37 - 47 06/05/2018 [facility] POC GFR, Estimated >60 mL/min/1.73 m2 06/05/2018 [facility] POC GFR, Estim, Afr-Am >60 mL/min/1.73 m2 06/05/2018 [facility] BLOOD BANK RESULTS Antibody Scrn Negative (06/23/2012 15:09:00) 06/23/2012 Normal [facility] BLOOD BANK RESULTS ABO/Rh O POS 06/23/2012 Unknown [facility] CHEMISTRY Phosphorus 4.2 mg/dL 2.5 - 4.5 06/23/2012 Normal [facility] CHEMISTRY Magnesium Lvl 1.5 mg/dL 1.8 - 2.4 06/23/2012 LOW [facility] CHEMISTRY eGFR 96 mL/min/1.73m2 06/23/2012 NA 1Result Comment: The eGFR is calculated using the modified Cornejo equation 0.413 x Height (cm) /Serum Creatinine (mg/dL). [facility] CHEMISTRY AST 28 unit/L 0 - 37 06/23/2012 Normal [facility] CHEMISTRY ALT 20 unit/L 0 - 65 06/23/2012 Normal [facility] CHEMISTRY Chloride Lvl 105 meq/L 95 - 109 06/23/2012 Normal [facility] CHEMISTRY CO2 21 meq/L 24 - 32 06/23/2012 LOW [facility] CHEMISTRY Bili Total 0.4 mg/dL 0.2 - 1.3 06/23/2012 Normal [facility] CHEMISTRY Calcium Lvl 8.4 mg/dL 8.5 - 10.5 06/23/2012 LOW [facility] CHEMISTRY BUN 9 mg/dL 7 - 22 06/23/2012 Normal [facility] CHEMISTRY Creatinine Lvl 0.7 mg/dL 0.5 - 1.4 06/23/2012 Normal [facility] CHEMISTRY Alk Phos 60 unit/L 39 - 136 06/23/2012 Normal [facility] CHEMISTRY Albumin Lvl 3.3 g/dL 3.5 - 5.0 06/23/2012 LOW [facility] CHEMISTRY Glucose Lvl 66 mg/dL 70 - 99 06/23/2012 LOW 2Interpretive Data: Adult reference range values reflect the clinical guidelines of the [place] [employer]. [facility] CHEMISTRY Total Protein 6.7 g/dL 6.4 - 8.4 06/23/2012 Normal [facility] CHEMISTRY Sodium Lvl 139 meq/L 135 - 145 06/23/2012 Normal [facility] CHEMISTRY Potassium Lvl 4.0 meq/L 3.5 - 5.1 06/23/2012 Normal [facility] CHEMISTRY AGAP 17.0 meq/L 10.0 - 20.0 06/23/2012 Normal [facility] CHEMISTRY A/G Ratio 1.0 0.7 - 1.6 06/23/2012 Normal [facility] CHEMISTRY B/C Ratio 13 6 - 25 06/23/2012 Normal [facility] CHEMISTRY Globulin 3.4 g/dL 2.0 - 4.0 06/23/2012 Normal [facility] HEMATOLOGY Basophils 0.7 % 0.0 - 1.0 06/23/2012 Normal [facility] HEMATOLOGY Monocytes 7.1 % 2.0 - 12.0 06/23/2012 Normal [facility] HEMATOLOGY Lymphocytes 43.2 % 20.0 - 40.0 06/23/2012 HI [facility] HEMATOLOGY Segs 48.8 % 45.0 - 75.0 06/23/2012 Normal [facility] HEMATOLOGY Eosinophils 0.2 % 0.0 - 4.0 06/23/2012 Normal [facility] HEMATOLOGY Eosinophils # 0.0 K/CMM 0.0 - 0.5 06/23/2012 Normal [facility] HEMATOLOGY Basophils # 0.0 K/CMM 0.0 - 0.2 06/23/2012 Normal [facility] HEMATOLOGY Monocytes # 0.3 K/CMM 0.0 - 0.8 06/23/2012 Normal [facility] HEMATOLOGY Lymphocytes # 1.9 K/CMM 1.0 - 5.5 06/23/2012 Normal [facility] HEMATOLOGY Segs-Bands # 2.1 K/CMM 1.5 - 8.1 06/23/2012 Normal [facility] HEMATOLOGY WBC 4.3 K/CMM 3.7 - 10.4 06/23/2012 [facility] HEMATOLOGY RBC 3.41 M/CMM 4.20 - 5.40 06/23/2012 [place] [facility] HEMATOLOGY RDW 12.8 % 11.5 - 14.5 06/23/2012 [facility] HEMATOLOGY MPV 9.6 fL 7.4 - 10.4 06/23/2012 [facility] HEMATOLOGY Platelet 222 K/CMM 133 - 450 06/23/2012 [facility] HEMATOLOGY Hct 31.3 % 36.0 - 48.0 06/23/2012 [facility] HEMATOLOGY MCHC 33.9 g/dL 32.0 - 36.0 06/23/2012 [facility] HEMATOLOGY MCH 31.1 pg 27.0 - 31.0 06/23/2012 [place] [facility] HEMATOLOGY MCV 91.8 fL 81.0 - 99.0 06/23/2012 [facility] HEMATOLOGY Hgb 10.6 g/dL 12.0 - 16.0 06/23/2012 [facility] CHEMISTRY UDS Note See Note [...] Methadone 300 ng/mL Urine alcohol 20 mg/dL [facility] CHEMISTRY U Phencyc Scr Negative *NA* (05/15/2012 19:28:00) Negative 05/16/2012 NA [facility] CHEMISTRY U Opiate Scr Negative *NA* (05/15/2012 19:28:00) Negative 05/16/2012 NA [facility] CHEMISTRY U Cannab Scr Negative *NA* (05/15/2012 19:28:00) Negative 05/16/2012 NA [facility] CHEMISTRY U Cocaine Scr Negative *NA* (05/15/2012 19:28:00) Negative 05/16/2012 NA [facility] CHEMISTRY U Benzodia Scr Negative *NA* (05/15/2012 19:28:00) Negative 05/16/2012 NA [facility] CHEMISTRY U Yaneth Scr Negative *NA* (05/15/2012 19:28:00) Negative 05/16/2012 NA [facility] CHEMISTRY U Amph Scr Negative *NA* (05/15/2012 19:28:00) Negative 05/16/2012 NA [facility] CHEMISTRY U Preg Negative (05/15/2012 19:28:00) Negative 05/16/2012 Normal [facility] BEDSIDE GLUCOSE TESTING Gluc POC Lifscn 91 mg/dL 70 - 99 05/15/2012 Normal 1Interpretive Data: Upper Reportable Limit: 200 mg/dL. [facility] CHEMISTRY Phosphorus 3.5 mg/dL 2.5 - 4.5 01/31/2012 Normal [facility] CHEMISTRY Magnesium Lvl 1.7 mg/dL 1.8 - 2.4 01/31/2012 LOW [facility] CHEMISTRY A/G Ratio 0.9 0.7 - 1.6 01/31/2012 Normal [facility] CHEMISTRY Globulin 3.7 g/dL 2.0 - 4.0 01/31/2012 Normal [facility] CHEMISTRY B/C Ratio 14 6 - 25 01/31/2012 Normal [facility] CHEMISTRY AGAP 10.4 meq/L 10.0 - 20.0 01/31/2012 Normal [facility] CHEMISTRY Bili Total 0.2 mg/dL 0.2 - 1.3 01/31/2012 Normal [facility] CHEMISTRY Alk Phos 88 U/L 39 - 136 01/31/2012 Normal [facility] CHEMISTRY AST 18 U/L 0 - 37 01/31/2012 Normal [facility] CHEMISTRY Total Protein 7.2 g/dL 6.4 - 8.4 01/31/2012 Normal [facility] CHEMISTRY ALT 30 U/L 0 - 65 01/31/2012 Normal [facility] CHEMISTRY Albumin Lvl 3.5 g/dL 3.5 - 5.0 01/31/2012 Normal [facility] CHEMISTRY Calcium Lvl 8.9 mg/dL 8.5 - 10.5 01/31/2012 Normal [facility] CHEMISTRY CO2 28 meq/L 24 - 32 01/31/2012 Normal [facility] CHEMISTRY Chloride Lvl 103 meq/L 95 - 109 01/31/2012 Normal [facility] CHEMISTRY Glucose Lvl 108 mg/dL 70 - 99 01/31/2012 ID 1Interpretive Data: Adult reference range values reflect the clinical guidelinesof the [place] [employer]. [facility] CHEMISTRY Creatinine Lvl 0.7 mg/dL 0.5 - 1.4 01/31/2012 Normal [facility] CHEMISTRY BUN 10 mg/dL 7 - 22 01/31/2012 Normal [facility] CHEMISTRY Potassium Lvl 3.4 meq/L 3.5 - 5.1 01/31/2012 LOW [facility] CHEMISTRY Sodium Lvl 138 meq/L 135 - 145 01/31/2012 Normal [facility] CHEMISTRY Ammonia 34.0 umol/L <=45.0 01/31/2012 Normal [facility] HEMATOLOGY MCV 92.4 fL 81.0 - 99.0 01/31/2012 Normal [facility] HEMATOLOGY Hct 36.0 % 36.0 - 48.0 01/31/2012 Normal [facility] HEMATOLOGY MCHC 34.8 g/dL 32.0 - 36.0 01/31/2012 Normal [facility] HEMATOLOGY MCH 32.1 pg 27.0 - 31.0 01/31/2012 HI [facility] HEMATOLOGY RDW 12.6 % 11.5 - 14.5 01/31/2012 Normal [facility] HEMATOLOGY Platelet 235 K/CMM 133 - 450 01/31/2012 Normal [facility] HEMATOLOGY MPV 8.9 fL 7.4 - 10.4 01/31/2012 Normal [facility] HEMATOLOGY WBC 5.3 K/CMM 3.7 - 10.4 01/31/2012 Normal [facility] HEMATOLOGY RBC 3.89 M/CMM 4.20 - 5.40 01/31/2012 LOW [facility] HEMATOLOGY Hgb 12.5 g/dL 12.0 - 16.0 01/31/2012 Normal [facility] HEMATOLOGY Polychrom Slight (01/30/2012 23:55:00) None Seen 01/31/2012 Normal [facility] HEMATOLOGY Anisocyte 1+ *ABN* (01/30/2012 23:55:00) None Seen 01/31/2012 ABN [facility] HEMATOLOGY Basophils # 0.0 K/CMM 0.0 - 0.2 01/31/2012 Normal [facility] HEMATOLOGY Segs-Bands # 2.3 K/CMM 1.5 - 8.1 01/31/2012 [facility] HEMATOLOGY Basophils 0.8 % 0.0 - 1.0 01/31/2012 Normal [facility] HEMATOLOGY Eosinophils # 0.0 K/CMM 0.0 - 0.5 01/31/2012 [facility] HEMATOLOGY Lymphocytes # 2.5 K/CMM 1.0 - 5.5 01/31/2012 [facility] HEMATOLOGY Monocytes # 0.5 K/CMM 0.0 - 0.8 01/31/2012 Normal [facility] HEMATOLOGY Segs 43.6 % 45.0 - 75.0 01/31/2012 LOW [facility] HEMATOLOGY Lymphocytes 46.3 % 20.0 - 40.0 01/31/2012 [facility] HEMATOLOGY Eosinophils 0.8 % 0.0 - 4.0 01/31/2012 [facility] HEMATOLOGY Monocytes 8.5 % 2.0 - 12.0 01/31/2012 [facility] IMMUNOLOGY RPR Non Reactive (01/06/2012 10:47:00) Non Reactive 01/06/2012 Normal [facility] CHEMISTRY U Preg Negative (01/05/2012 01:50:00) Negative 01/05/2012 Normal [facility] CHEMISTRY Temp Olvin 37.0 Erendira 01/05/2012 NA [facility] CHEMISTRY BE Olvin 2 mMol/L -2-2 - 2 01/05/2012 Normal [facility] CHEMISTRY pCO2 Olvin 42 mm[Hg] 38 - 52 01/05/2012 [facility] CHEMISTRY pO2 Olvin 59 mm[Hg] 20 - 49 01/05/2012 [facility] CHEMISTRY HCO3 Olvin 27.2 mMol/L 22.0 - 26.0 01/05/2012 [facility] CHEMISTRY O2 Sat Olvin 91.0 % 40.0 - 70.0 01/05/2012 HI [facility] CHEMISTRY pH Olvin 7.42 7.28 - 7.42 01/05/2012 Normal [facility] CHEMISTRY Ammonia 35.0 umol/L <=45.0 01/05/2012 Normal [facility] CHEMISTRY Lactic Acid Lvl 0.9 mMol/L 0.5 - 2.2 01/05/2012 Normal [facility] CHEMISTRY Total Protein 8.1 g/dL 6.4 - 8.4 01/05/2012 Normal [facility] CHEMISTRY Bili Total 0.2 mg/dL 0.2 - 1.3 01/05/2012 Normal [facility] CHEMISTRY Bili Indirect 0.1 mg/dL 0.0 - 1.0 01/05/2012 Normal [facility] CHEMISTRY Phosphorus 4.5 mg/dL 2.5 - 4.5 01/05/2012 Normal [facility] CHEMISTRY Magnesium Lvl 2.0 mg/dL 1.8 - 2.4 01/05/2012 Normal [facility] CHEMISTRY AST 10 U/L 0 - 37 01/05/2012 Normal [facility] CHEMISTRY Trig 148 mg/dL 0 - 200 01/05/2012 Normal [facility] CHEMISTRY Bili Direct 0.1 mg/dL 0.0 - 0.3 01/05/2012 Normal [facility] CHEMISTRY Calcium Lvl 9.1 mg/dL 8.5 - 10.5 01/05/2012 Normal [facility] CHEMISTRY CO2 23 meq/L 24 - 32 01/05/2012 LOW [facility] CHEMISTRY Chloride Lvl 106 meq/L 95 - 109 01/05/2012 Normal [facility] CHEMISTRY Albumin Lvl 4.1 g/dL 3.5 - 5.0 01/05/2012 Normal [facility] CHEMISTRY ALT 16 U/L 0 - 65 01/05/2012 Normal [facility] CHEMISTRY Alk Phos 78 U/L 39 - 136 01/05/2012 Normal [facility] CHEMISTRY Potassium Lvl 4.1 meq/L 3.5 - 5.1 01/05/2012 Normal [facility] CHEMISTRY Sodium Lvl 141 meq/L 135 - 145 01/05/2012 Normal [facility] CHEMISTRY Creatinine Lvl 0.7 mg/dL 0.5 - 1.4 01/05/2012 Normal [facility] CHEMISTRY BUN 9 mg/dL 7 - 22 01/05/2012 Normal [facility] CHEMISTRY Glucose Lvl 83 mg/dL 70 - 99 01/05/2012 Normal 1Interpretive Data: Adult reference range values reflect the clinical guidelinesof the [place] [employer]. [facility] CHEMISTRY Total CK 161 U/L 12 - 191 01/05/2012 Normal [facility] HEMATOLOGY Basophils # 0.0 K/CMM 0.0 - 0.2 01/05/2012 Normal [facility] HEMATOLOGY Large Plt Slight *ABN* (01/04/2012 22:56:00) None Seen 01/05/2012 ABN [facility] HEMATOLOGY Segs-Bands # 3.1 K/CMM 1.5 - 8.1 01/05/2012 Normal [facility] HEMATOLOGY Lymphocytes # 2.4 K/CMM 1.0 - 5.5 01/05/2012 Normal [facility] HEMATOLOGY Eosinophils # 0.0 K/CMM 0.0 - 0.5 01/05/2012 Normal [facility] HEMATOLOGY Monocytes # 0.5 K/CMM 0.0 - 0.8 01/05/2012 Normal [facility] HEMATOLOGY Basophils 0.5 % 0.0 - 1.0 01/05/2012 Normal [facility] HEMATOLOGY RBC Morph Normal (01/04/2012 22:56:00) 01/05/2012 Normal [facility] HEMATOLOGY Segs 50.7 % 45.0 - 75.0 01/05/2012 Normal [facility] HEMATOLOGY Eosinophils 0.6 % 0.0 - 4.0 01/05/2012 Normal [facility] HEMATOLOGY Lymphocytes 40.1 % 20.0 - 40.0 01/05/2012 [facility] HEMATOLOGY Monocytes 8.1 % 2.0 - 12.0 01/05/2012 Normal [facility] HEMATOLOGY MPV 11.4 fL 7.4 - 10.4 01/05/2012 [facility] HEMATOLOGY Platelet 194 K/CMM 133 - 450 01/05/2012 Normal [facility] HEMATOLOGY RDW 12.9 % 11.5 - 14.5 01/05/2012 Normal [facility] HEMATOLOGY MCHC 33.0 g/dL 32.0 - 36.0 01/05/2012 Normal [facility] HEMATOLOGY MCV 92.2 fL 81.0 - 99.0 01/05/2012 Normal [facility] HEMATOLOGY MCH 30.4 pg 27.0 - 31.0 01/05/2012 Normal [facility] HEMATOLOGY Hct 38.7 % 36.0 - 48.0 01/05/2012 Normal [facility] HEMATOLOGY Hgb 12.8 g/dL 12.0 - 16.0 01/05/2012 Normal [facility] HEMATOLOGY RBC 4.19 M/CMM 4.20 - 5.40 01/05/2012 LOW [facility] HEMATOLOGY WBC 6.0 K/CMM 3.7 - 10.4 01/05/2012 Normal [facility] CHEMISTRY U Preg Negative (09/24/2011 14:19:00) Negative 09/24/2011 Normal [facility] URINALYSIS UA Renal Epi None Seen (09/24/2011 14:19:00) 09/24/2011 Normal [facility] URINALYSIS UA Mucus None Seen (09/24/2011 14:19:00) None Seen 09/24/2011 Normal [facility] URINALYSIS Micro? Performed (09/24/2011 14:19:00) 09/24/2011 Normal [facility] URINALYSIS UA Sq Epi None Seen (09/24/2011 14:19:00) Few 09/24/2011 Normal [facility] URINALYSIS UA RBC 21-50 /HPF *ABN* (09/24/2011 14:19:00) 0 - 2 09/24/2011 ABN [facility] URINALYSIS UA WBC None Seen (09/24/2011 14:19:00) None Seen 09/24/2011 Normal [facility] URINALYSIS UA Bacteria Occasional /HPF (09/24/2011 14:19:00) None Seen 09/24/2011 Normal [facility] URINALYSIS UA Blood Large *ABN* (09/24/2011 14:19:00) Negative 09/24/2011 ABN [facility] URINALYSIS UA Urobilinogen 0.2 EU/dL 0.1 - 1.0 09/24/2011 Normal [facility] URINALYSIS UA Nitrite Negative (09/24/2011 14:19:00) Negative 09/24/2011 Normal [facility] URINALYSIS UA Leuk Est Negative (09/24/2011 14:19:00) Negative 09/24/2011 Normal [facility] URINALYSIS UA Ketones 15 mg/dL *ABN* (09/24/2011 14:19:00) Negative 09/24/2011 ABN [facility] URINALYSIS UA Bili Negative *NA* (09/24/2011 14:19:00) Negative 09/24/2011 NA [facility] URINALYSIS UA pH 7.0 5.0 - 8.0 09/24/2011 Normal [facility] URINALYSIS UA Protein Negative (09/24/2011 14:19:00) Negative 09/24/2011 Normal [facility] URINALYSIS UA Glucose Negative (09/24/2011 14:19:00) Negative 09/24/2011 Normal [facility] URINALYSIS UA Color Yellow *NA* (09/24/2011 14:19:00) Yellow 09/24/2011 NA [facility] URINALYSIS UA Turbidity Slight Cloudy (09/24/2011 14:19:00) Clear 09/24/2011 Normal [facility] URINALYSIS UA Spec Grav 1.015 <=1.030 09/24/2011 Normal [facility] CHEMISTRY Phosphorus 2.9 mg/dL 2.5 - 4.5 09/24/2011 Normal [facility] CHEMISTRY Magnesium Lvl 1.7 mg/dL 1.8 - 2.4 09/24/2011 LOW [facility] CHEMISTRY Calcium Lvl 8.3 mg/dL 8.5 - 10.5 09/24/2011 LOW [facility] CHEMISTRY Potassium Lvl 5.7 meq/L 3.5 - 5.1 09/24/2011 HI 1Result Comment: Specimen Moderately Hemolyzed. [facility] CHEMISTRY Chloride Lvl 105 meq/L 95 - 109 09/24/2011 Normal [facility] CHEMISTRY CO2 22 meq/L 24 - 32 09/24/2011 LOW [facility] CHEMISTRY Glucose Lvl 80 mg/dL 09/24/2011 NA 2Interpretive Data: Reference Ranges : 0 - 7 days : 41 - 90 mg/dL7 days - 150 yrs : 70 - 99 mg/dL (fasting), based on the clinical recommendations of the [place] [employer]. [facility] CHEMISTRY BUN 10 mg/dL 7 - 22 09/24/2011 Normal [facility] CHEMISTRY Creatinine Lvl 0.3 mg/dL 0.5 - 1.4 09/24/2011 LOW [facility] CHEMISTRY Sodium Lvl 137 meq/L 135 - 145 09/24/2011 Normal [facility] CHEMISTRY AGAP 15.7 meq/L 10.0 - 20.0 09/24/2011 Normal [facility] HEMATOLOGY Eosinophils 0.7 % 0.0 - 4.0 09/24/2011 Normal [facility] HEMATOLOGY Basophils 0.7 % 0.0 - 1.0 09/24/2011 Normal [facility] HEMATOLOGY Segs 58.4 % 45.0 - 75.0 09/24/2011 Normal [facility] HEMATOLOGY Lymphocytes 33.6 % 20.0 - 40.0 09/24/2011 [facility] HEMATOLOGY Monocytes 6.6 % 2.0 - 12.0 09/24/2011 [facility] HEMATOLOGY Segs-Bands # 2.5 K/CMM 1.5 - 8.1 09/24/2011 [facility] HEMATOLOGY Lymphocytes # 1.4 K/CMM 1.0 - 5.5 09/24/2011 Normal [facility] HEMATOLOGY Monocytes # 0.3 K/CMM 0.0 - 0.8 09/24/2011 Normal [facility] HEMATOLOGY Eosinophils # 0.0 K/CMM 0.0 - 0.5 09/24/2011 [facility] HEMATOLOGY Basophils # 0.0 K/CMM 0.0 - 0.2 09/24/2011 [facility] HEMATOLOGY Platelet 183 K/CMM 133 - 450 09/24/2011 [facility] HEMATOLOGY MPV 9.8 fL 7.4 - 10.4 09/24/2011 Normal [facility] HEMATOLOGY MCH 31.4 pg 27.0 - 31.0 09/24/2011 HI [facility] HEMATOLOGY MCHC 34.2 g/dL 32.0 - 36.0 09/24/2011 [facility] HEMATOLOGY RDW 12.6 % 11.5 - 14.5 09/24/2011 [facility] HEMATOLOGY RBC 4.07 M/CMM 4.20 - 5.40 09/24/2011 LOW [facility] HEMATOLOGY Hgb 12.8 g/dL 12.0 - 16.0 09/24/2011 [facility] HEMATOLOGY Hct 37.4 % 36.0 - 48.0 09/24/2011 Normal [facility] HEMATOLOGY MCV 91.8 fL 81.0 - 99.0 09/24/2011 Normal [facility] HEMATOLOGY WBC 4.2 K/CMM 3.7 - 10.4 09/24/2011 Normal [facility] CHEMISTRY Magnesium Lvl 1.8 mg/dL 1.8 - 2.4 09/20/2011 Normal [facility] CHEMISTRY Phosphorus 3.1 mg/dL 2.5 - 4.5 09/20/2011 Normal [facility] CHEMISTRY UDS Note See Note 2 *NA* [...] 50 ng/mLMethadone 300 ng/mLUrine alcohol 20 mg/dL [facility] CHEMISTRY U Phencyc Scr Negative *NA* (09/20/2011 17:00:00) Negative 09/20/2011 NA [facility] CHEMISTRY U Cannab Scr Negative *NA* (09/20/2011 17:00:00) Negative 09/20/2011 NA [facility] CHEMISTRY U Opiate Scr Negative *NA* (09/20/2011 17:00:00) Negative 09/20/2011 NA [facility] CHEMISTRY U Cocaine Scr Negative *NA* (09/20/2011 17:00:00) Negative 09/20/2011 NA [facility] CHEMISTRY U Yaneth Scr Negative *NA* (09/20/2011 17:00:00) Negative 09/20/2011 NA [facility] CHEMISTRY U Benzodia Scr Negative *NA* (09/20/2011 17:00:00) Negative 09/20/2011 NA [facility] CHEMISTRY U Amph Scr Negative *NA* (09/20/2011 17:00:00) Negative 09/20/2011 NA [facility] URINALYSIS UA WBC 3-5 /HPF (09/20/2011 17:00:00) None Seen 09/20/2011 Normal [facility] URINALYSIS UA Sq Epi None Seen (09/20/2011 17:00:00) Few 09/20/2011 Normal [facility] URINALYSIS UA RBC >100 /HPF *ABN* (09/20/2011 17:00:00) 0 - 2 09/20/2011 ABN [facility] URINALYSIS UA Bacteria Occasional /HPF (09/20/2011 17:00:00) None Seen 09/20/2011 Normal [facility] URINALYSIS UA Mucus Rare /LPF (09/20/2011 17:00:00) None Seen 09/20/2011 Normal [facility] URINALYSIS UA Nitrite Negative (09/20/2011 17:00:00) Negative 09/20/2011 Normal [facility] URINALYSIS Micro? Performed (09/20/2011 17:00:00) 09/20/2011 Normal [facility] URINALYSIS UA Leuk Est Trace *ABN* (09/20/2011 17:00:00) Negative 09/20/2011 ABN [facility] URINALYSIS UA Blood Large *ABN* (09/20/2011 17:00:00) Negative 09/20/2011 ABN [facility] URINALYSIS UA Ketones 40 mg/dL *ABN* (09/20/2011 17:00:00) Negative 09/20/2011 ABN [facility] URINALYSIS UA Urobilinogen 0.2 EU/dL 0.1 - 1.0 09/20/2011 Normal [facility] URINALYSIS UA Bili Small *ABN* (09/20/2011 17:00:00) Negative 09/20/2011 ABN [facility] URINALYSIS UA Color Red *ABN* (09/20/2011 17:00:00) Yellow 09/20/2011 ABN [facility] URINALYSIS UA Protein 30 mg/dL *ABN* (09/20/2011 17:00:00) Negative 09/20/2011 ABN [facility] URINALYSIS UA pH 6.0 5.0 - 8.0 09/20/2011 Normal [facility] URINALYSIS UA Spec Grav 1.025 <=1.030 09/20/2011 Normal [facility] URINALYSIS UA Turbidity Cloudy *ABN* (09/20/2011 17:00:00) Clear 09/20/2011 ABN [facility] URINALYSIS UA Glucose Negative (09/20/2011 17:00:00) Negative 09/20/2011 Normal [facility] CHEMISTRY Valproic Acid Lvl 83 ug/ml 50 - 100 09/20/2011 Normal [facility] CHEMISTRY Calcium Lvl 9.2 mg/dL 8.5 - 10.5 09/20/2011 Normal [facility] CHEMISTRY Potassium Lvl 4.1 meq/L 3.5 - 5.1 09/20/2011 Normal [facility] CHEMISTRY Sodium Lvl 139 meq/L 135 - 145 09/20/2011 Normal [facility] CHEMISTRY Chloride Lvl 103 meq/L 95 - 109 09/20/2011 Normal [facility] CHEMISTRY CO2 22 meq/L 24 - 32 09/20/2011 LOW [facility] CHEMISTRY Creatinine Lvl 0.7 mg/dL 0.5 - 1.4 09/20/2011 Normal [facility] CHEMISTRY Glucose Lvl 72 mg/dL 09/20/2011 NA 1Interpretive Data: Reference Ranges : 0 - 7 days : 41 - 90 mg/dL7 days - 150 yrs : 70 - 99 mg/dL (fasting), based on the clinical recommendations of the [place] [employer]. [facility] CHEMISTRY BUN 9 mg/dL 7 - 22 09/20/2011 Normal [facility] CHEMISTRY AGAP 18.1 meq/L 10.0 - 20.0 09/20/2011 Normal [facility] HEMATOLOGY Basophils # 0.0 K/CMM 0.0 - 0.2 09/20/2011 Normal [facility] HEMATOLOGY Eosinophils # 0.0 K/CMM 0.0 - 0.5 09/20/2011 Normal [facility] HEMATOLOGY Monocytes # 0.4 K/CMM 0.0 - 0.8 09/20/2011 Normal [facility] HEMATOLOGY Eosinophils 0.4 % 0.0 - 4.0 09/20/2011 Normal [facility] HEMATOLOGY Lymphocytes # 1.7 K/CMM 1.0 - 5.5 09/20/2011 [facility] HEMATOLOGY Basophils 0.4 % 0.0 - 1.0 09/20/2011 [facility] HEMATOLOGY Segs-Bands # 4.7 K/CMM 1.5 - 8.1 09/20/2011 [facility] HEMATOLOGY Segs 68.7 % 45.0 - 75.0 09/20/2011 Normal [facility] HEMATOLOGY Lymphocytes 24.7 % 20.0 - 40.0 09/20/2011 [facility] HEMATOLOGY Monocytes 5.8 % 2.0 - 12.0 09/20/2011 [facility] HEMATOLOGY MCV 92.3 fL 81.0 - 99.0 09/20/2011 [facility] HEMATOLOGY MCH 31.6 pg 27.0 - 31.0 09/20/2011 [facility] HEMATOLOGY RDW 12.6 % 11.5 - 14.5 09/20/2011 [facility] HEMATOLOGY MPV 10.5 fL 7.4 - 10.4 09/20/2011 [facility] HEMATOLOGY MCHC 34.2 g/dL 32.0 - 36.0 09/20/2011 [facility] HEMATOLOGY Platelet 186 K/CMM 133 - 450 09/20/2011 [facility] HEMATOLOGY RBC 4.15 M/CMM 4.20 - 5.40 09/20/2011 LOW [facility] HEMATOLOGY WBC 6.8 K/CMM 3.7 - 10.4 09/20/2011 [facility] HEMATOLOGY Hgb 13.1 g/dL 12.0 - 16.0 09/20/2011 [facility] HEMATOLOGY Hct 38.3 % 36.0 - 48.0 09/20/2011 [facility] Vital Signs Vital Sign Value Date Comments Source Systolic (mm Hg) 128 06/23/2018 [facility] Diastolic (mm Hg) 77 06/23/2018 [facility] Heart Rate 85 06/23/2018 [facility] Temperature Oral (F) 36.72 [place] 06/23/2018 [facility] Respitory Rate 18 06/23/2018 [facility] Systolic (mm Hg) 148 06/06/2018 [facility] Diastolic (mm Hg) 90 06/06/2018 [facility] Heart Rate 85 06/06/2018 [facility] Temperature Oral (F) 36.44 Erendira 06/06/2018 [facility] Respitory Rate 18 06/06/2018 [facility] Height 62 03/29/2014 [facility] Weight 137 03/29/2014 [facility] Temperature Oral (F) 98.1 F 03/29/2014 [facility] Heart Rate 80 03/29/2014 [facility] Systolic (mm Hg) 117 03/29/2014 [facility] Diastolic (mm Hg) 82 03/29/2014 [facility] Temperature Oral (F) 97.6 F 06/24/2012 [facility] Systolic (mm Hg) 113 06/24/2012 [facility] Respitory Rate 18 06/24/2012 [facility] Temperature Oral (F) 100.0 F 06/24/2012 [facility] Heart Rate 84 06/24/2012 [facility] Diastolic (mm Hg) 52 06/24/2012 [facility] Systolic (mm Hg) 120 06/23/2012 [facility] Diastolic (mm Hg) 61 06/23/2012 [facility] Temperature Oral (F) 98.8 F 06/23/2012 [facility] Heart Rate 96 06/23/2012 [facility] Respitory Rate 19 06/23/2012 [facility] Systolic (mm Hg) 121 06/23/2012 [facility] Diastolic (mm Hg) 58 06/23/2012 [facility] Respitory Rate 11 06/23/2012 [facility] Weight 70.100 06/23/2012 [facility] Height 162.00 cm 06/23/2012 [facility] Weight 67.273 05/15/2012 [facility] Height 157.48 cm 05/15/2012 [facility] Weight 66.000 04/13/2012 [facility] Height 160.50 cm 04/13/2012 [facility] Weight 63.636 01/31/2012 [facility] Height 157.48 cm 01/20/2012 [facility] Weight 63.636 01/20/2012 [facility] Diastolic (mm Hg) 63 01/07/2012 [facility] Respitory Rate 20 01/07/2012 [facility] Systolic (mm Hg) 100 01/07/2012 [facility] Heart Rate 90 01/07/2012 [facility] Temperature Oral (F) 98.3 F 01/07/2012 [facility] Systolic (mm Hg) 93 01/07/2012 [facility] Temperature Oral (F) 99.0 F 01/07/2012 [facility] Respitory Rate 19 01/07/2012 [facility] Heart Rate 82 01/07/2012 [facility] Diastolic (mm Hg) 62 01/07/2012 [facility] Temperature Oral (F) 98.1 F 01/07/2012 [facility] Heart Rate 79 01/07/2012 [facility] Diastolic (mm Hg) 67 01/07/2012 [facility] Systolic (mm Hg) 108 01/07/2012 [facility] Respitory Rate 18 01/07/2012 [facility] Height 151.00 cm 01/05/2012 [facility] Weight 62.700 01/05/2012 [facility] Weight 68.182 01/05/2012 [facility] Systolic (mm Hg) 141 09/24/2011 [facility] Heart Rate 75 09/24/2011 [facility] Diastolic (mm Hg) 85 09/24/2011 [facility] Respitory Rate 18 09/24/2011 [facility] Temperature Oral (F) 98.0 F 09/24/2011 [facility] Diastolic (mm Hg) 77 09/24/2011 [facility] Systolic (mm Hg) 138 09/24/2011 [facility] Respitory Rate 22 09/24/2011 [facility] Heart Rate 88 09/24/2011 [facility] Temperature Oral (F) 99.1 F 09/24/2011 [facility] Systolic (mm Hg) 142 09/24/2011 [facility] Respitory Rate 18 09/24/2011 [facility] Heart Rate 80 09/24/2011 [facility] Diastolic (mm Hg) 78 09/24/2011 [facility] Weight 70.455 09/24/2011 [facility] Temperature Oral (F) 98.2 F 09/24/2011 [facility] Height 157.48 cm 09/24/2011 [facility] Diastolic (mm Hg) 66 09/21/2011 [facility] Heart Rate 86 09/21/2011 [facility] Systolic (mm Hg) 128 09/21/2011 [facility] Temperature Oral (F) 98.7 F 09/21/2011 [facility] Respitory Rate 19 09/21/2011 [facility] Diastolic (mm Hg) 76 09/21/2011 [facility] Heart Rate 73 09/21/2011 [facility] Respitory Rate 16 09/21/2011 [facility] Systolic (mm Hg) 128 09/21/2011 [facility] Respitory Rate 25 09/20/2011 [facility] Weight 68.182 09/20/2011 [facility] Height 160.02 cm 09/20/2011 [facility] Diastolic (mm Hg) 66 09/20/2011 [facility] Systolic (mm Hg) 128 09/20/2011 [facility] Heart Rate 83 09/20/2011 [facility] Encounters Location Location Details Encounter Type Encounter Number Reason For Visit Attending Provider ADM Date DC Date Status Source [facility] Emergency [id number] 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 09/20/2011 09/20/2011 Active [facility] Emergency [id number] AMS LUCI ESTRADA 09/24/2011 09/24/2011 Active [facility] Inpatient [id number] SEZURES NIK SYED 01/05/2012 01/07/2012 Active [facility] Outpatient [id number] SYNCOPE LOAN FOSTER 01/20/2012 Active [facility] Emergency [id number] DENIAPARUL WASSERMAN 01/30/2012 01/31/2012 Active [facility] Outpatient [id number] SEIZURES MOHAMMED TALAT 04/13/2012 04/13/2012 Active [facility] Emergency [id number] SEIZURES ATIM UYA 05/15/2012 05/16/2012 Active [facility] OU [id number] SYNCOPE MOHAMMED TALAT 06/23/2012 06/23/2012 Active [facility] General Surgery 350 Office Visit [id number] Zak Keys MD 03/29/2014 03/29/2014 [facility] Lab Report [id number] Zak Keys MD 03/30/2014 03/30/2014 [facility] BT Emergency [id number] Pelvic pain in female 06/05/2018 06/06/2018 [facility] BT Emergency [id number] Irregular periods Adali ESCAMILLA 06/23/2018 06/23/2018 [facility] Procedures Procedure Code Date Perfomer Comments Source UA CHEMISTRIES [id number] 06/23/2018 [facility] TEST [id number] 06/23/2018 [facility] BMP POC [id number] 06/23/2018 Unknown [facility] HIV-1/HIV-2 ROUTINE SCREENING 42786 06/23/2018 [facility] CBC/DIFF [id number] 06/23/2018 [facility] TYPE AND SCREEN 30238 06/23/2018 [facility] U/S TRANSVAGINAL [id number] 06/06/2018 [facility] U/S PELVIS LTD NON-OB [id number] 06/06/2018 [facility] BMP POC [id number] 06/05/2018 Unknown [facility] HCG, QUANTITATIVE [id number] 06/05/2018 [facility] HIV-1/HIV-2 ROUTINE SCREENING 11191 06/05/2018 [facility] UA CHEMISTRIES [id number] 06/05/2018 [facility] CBC/DIFF 12318 06/05/2018 [facility] LIVER PROFILE [id number] 06/05/2018 [facility] LIPASE [id number] 06/05/2018 [facility] TYPE AND SCREEN 16769 06/05/2018 [facility]
[2018-10-12] MEDS ORDERED: ACETAMINOPHEN 325 MG TAB PO ONE (14:15)
[2018-10-12 14:53] LABS: BASOPHILS % 0.3 % (0.0-1.0); HEMOGLOBIN 15.3 g/dL (12.0-16.0); LYMPHOCYTES # (AUTO) 0.8 (1.0-3.2); LYMPHOCYTES % 12.6 % (18.0-39.1); MEAN CORPUSCULAR HEMOGLOBIN 29.7 pg (28-32); MEAN CORPUSCULAR HGB CONC 33.3 g/dL (31-35); MEAN CORPUSCULAR VOLUME 89.1 fL (81-99); MONOCYTES # (AUTO) 0.3 (0.2-0.8); MONOCYTES % 4.6 % (4.4-11.3); NEUTROPHILS # (AUTO) 5.2 (2.1-6.9); NEUTROPHILS % 82.2 % (38.7-80.0); PLATELET COUNT 335 x10e3/uL (140-360); RED BLOOD COUNT 5.16 x10e6/uL (3.6-5.1)
[2018-10-12 15:02] LABS: BILIRUBIN,URINE NEGATIVE (NEGATIVE); CLARITY,URINE SL CLOUDY (CLEAR); COLOR,URINE YELLOW (YELLOW); KETONES,URINE NEGATIVE (NEGATIVE); LEUKOCYTE ESTERASE ,URINE TRACE (NEGATIVE); NITRITE,URINE NEGATIVE (NEGATIVE); PROTEIN,URINE DIPSTICK NEGATIVE (NEGATIVE); URINE UROBILINOGEN 0.2 mg/dL (0.2 - 1)
[2018-10-12 15:12] LABS: BACTERIA,URINE MODERATE /HPF; EPITHELIAL CELLS,URINE MANY /LPF; TRANSITIONAL EPI CELLS,URINE FEW
[2018-10-12 15:20] LABS: ALANINE AMINOTRANSFERASE 20 IU/L (0-55); ALBUMIN 4.6 g/dL (3.5-5.0); ALBUMIN/GLOBULIN RATIO 0.9 (0.8-2.0); ALKALINE PHOSPHATASE 71 IU/L (40-150); ANION GAP 17.3 mmol/L (8-16); BLOOD UREA NITROGEN 8 mg/dL (7-26); BUN/CREATININE RATIO 9 (6-25); CARBON DIOXIDE 23 mmol/L (22-29); CHLORIDE 100 mmol/L (98-107); EST GLOMERULAR FILTRATION RATE > 60 ML/MIN (60-); GLUCOSE 86 mg/dL (74-118); POTASSIUM 4.3 mmol/L (3.5-5.1); SODIUM 136 mmol/L (136-145)
[2018-10-12 15:35] LABS: AMYLASE 69 U/L (25-125); LIPASE 27 U/L (8-78)
[2018-10-12] MEDS ORDERED: CEFTRIAXONE SOD 1 GM/NS 50 ML 50 ML IV ONE (16:15)
--- NOTE | 2018-10-12 17:47 | Diagnostic Imaging Report ---
EXAMINATION: CT of the abdomen and pelvis with contrast. TECHNIQUE: Helical CT images of the abdomen and pelvis were performed from the lung bases to the lesser trochanters after the intravenous administration of 150 cc of Isovue 300 and the oral administration of Redicat. Coronal and sagittal reformatted images were obtained.Dose modulation, iterative reconstruction, and/or weight based adjustment of the mA/kV was utilized to reduce the radiation dose to as low as reasonably achievable. COMPARISON: None. CLINICAL HISTORY:Abdominal pain DISCUSSION: ABDOMEN/PELVIS: LOWER THORAX:Unremarkable. HEPATOBILIARY: 2.4 cm area of enhancement in the inferior liver right hepatic lobe. No intra-or extrahepatic biliary ductal dilation. The gallbladder is normal. SPLEEN: 1 cm hypodensity in the spleen. No cyst splenomegaly. PANCREAS: No focal masses or ductal dilatation. ADRENALS: No adrenal nodules. KIDNEYS/URETERS: No hydronephrosis, stones, or solid mass lesions. PELVIC ORGANS/BLADDER: The bladder is normal. PERITONEUM/RETROPERITONEUM: No free air or fluid. LYMPH NODES: No intra-abdominal, retroperitoneal, pelvic or inguinal lymphadenopathy. VESSELS: The celiac trunk,superior and inferior mesenteric and bilateral renal arteries are patent The portal, superior mesenteric and splenic veins are patent. GI TRACT: No distention or wall thickening. BONES AND SOFT TISSUE: No bony destructive lesions. No soft tissue abnormalities. IMPRESSION: No acute CT finding. 2.4 cm enhancing lesion in the inferior right hepatic lobe may reflect hemangioma or adenoma. Signed by: Dr. Mina Stern M.D. on 10/12/2018 5:44 PM
[2018-10-12 18:42] VITALS: BP 140/81
[2018-10-12] MEDS ORDERED: IOPAMIDOL 370 MG/ML 200 ML INFUS..BTL INJ ONE (20:32)
[2018-10-12] MEDS ORDERED: SODIUM CHLORIDE 0.9% 50ML 50 ML ONE (20:32)
== END 2018-10-12 18:57 | disposition home or self-care (01) ==
LOC: ER 13:14
DX: R10.13 Epigastric pain (principal); R11.2 Nausea with vomiting, unspecified; K29.00 Acute gastritis without bleeding; N10 Acute pyelonephritis; N12 Tubulo-interstitial nephritis, not specified as acute or chronic; N39.0 Urinary tract infection, site not specified
CPT/HCPCS: 36415; 74177; 80053; 81001; 81025; 82150; 83605; 83690; 85025; 87040; 87086; 93005; 99284; J0696; Q9967

== ENCOUNTER 2018-11-09 20:32 | Emergency (ER) | payer SELFPAY ==
[~2018-11-09] VITALS: Ht 154.9 cm; Wt 79.4 kg
--- OUTSIDE RECORDS SUMMARY | 2018-11-09 20:36 | XMS REPORT | Clinical Summary ---
Author Author [facility] Organization [facility] Address Unknown Phone Unavailable Care Team Providers Care Process Description Writer Name Role Phone Provider, Unknown PCP Unavailable [...] (Primary Dx) 05/07/2018 Emergency Emergency Medicine after 11/08/2017 Social History Date Tobacco Use Types Packs/Day [...] PANEL STAT 05/07/2018 2:47 PM CDT after 11/08/2017 Results * CT Head Wo Contrast (05/07/2018 3:03 PM CDT) Narrative Performed At EXAMINATION:CT HEAD WO CONTRAST [facility] CT IMAGING WAS PERFORMED WITH ITERATIVE RECONSTRUCTION [...] demonstrated nor change from the prior study. [facility]-[id number] Procedure Note Interface, Radiology Results Incoming - [...] demonstrated nor change from the prior study. [facility]-[id number] Performing Organization Address City/State/Zipcode Phone Number [facility] [address] [place] [address] * Estimated GFR (05/07/2018 2:47 PM CDT) GFR Non Af Amer 89 mL/min/1.73 m2 [facility]OMIC MEDICINE GFR Af Amer >90 mL/min/1.73 m2 [facility] OF Comment: PATHOLOGY AND Chronic kidney [...] Americans. Specimen Plasma specimen Performing Organization Address City/[facility] [place] [address] PATHOLOGY AND [facility] * hCG qualitative, serum screen (05/07/2018 2:47 PM CDT) hCG qualitative, serum Negative [facility] OF Comment: PATHOLOGY AND The manufacturers stated [facility] sensitivity of HcG test for serum is >/=10 mIU/ml and urine is >/=20mIU/ml. Specimen Blood Performing Organization Address [facility] [place] [address] PATHOLOGY AND [facility] * Basic metabolic panel (05/07/2018 2:47 PM CDT) Sodium 140 135 - 150 mEq/L [facility] OF PATHOLOGY AND [facility] Potassium 3.8 3.5 - 5.0 mEq/L [facility] OF PATHOLOGY AND [facility] Chloride 99 98 - 112 mEq/L [facility] OF PATHOLOGY AND [facility] CO2 27 24 - 31 mmol/L [facility] OF PATHOLOGY AND [facility] Anion gap 14@ANIO 7 - 15 mEq/L [facility] OF PATHOLOGY AND [facility] BUN 9 7 - 18 mg/dL [facility] OF PATHOLOGY AND [facility] Creatinine 0.80 0.50 - 0.90 mg/dL [facility] OF PATHOLOGY AND [facility] Glucose 79 65 - 100 mg/dL [facility] OF PATHOLOGY AND [facility] Calcium 10.0 8.3 - 10.2 mg/dL [facility] OF PATHOLOGY AND [facility] Specimen Plasma specimen Performing Organization Address City/[facility] [place] [address] PATHOLOGY AND [facility] after 11/08/2017 Advance Directives Patient has advance care planning documents on file. For more information, nolvia quinones contact: Wood Boyle [address] [place] [address]
--- OUTSIDE RECORDS SUMMARY | 2018-11-09 20:36 | XMS REPORT | Clinical Summary ---
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 Color Yellow BT MAIN-STATION 3 Clarity Hazy BT MAIN-STATION 3 Spec [place] 1.019 1.001 - 1.035 BT MAIN-STATION 3 [...] MAIN-STATION 3 Specimen Urine Performing Organization Address [facility] Phone Number MISYS BT MAIN-STATION 3 * [...] BT MAIN-STATION Afr-Am 1 Performing Organization Address [facility] Phone Number MISYS BT MAIN-STATION 1 * HIV-1/HIV-2 ROUTINE SCREENING (06/23/2018 2:20 PM CDT) Only the most recent of 2 results within the time period is included. HIV-1/HIV-2 Negative NEG BT MAIN-STATION 4 Performing Organization Address [facility] Phone Number MISYS BT MAIN-STATION 4 * [...] MD, 06/05/2018 8:24 PM Performing Organization Address [facility] Phone [facility] SMS * HCG, QUANTITATIVE (06/05/2018 1:59 PM CDT) hCG, <1 <5 mIU/mL BT MAIN-STATION Quantitative 1 Specimen Blood Performing Organization Address City[facility] Phone Number MISYS BT MAIN-STATION 1 * [...] MAIN-STATION 1 Specimen Blood Performing Organization Address City/[facility] Phone Number MISYS BT MAIN-STATION 1 * LIPASE (06/05/2018 1:59 PM CDT) Lipase 34 11 - 82 U/L BT MAIN-STATION 1 Specimen Blood Performing Organization Address City/[facility] Phone Number MISYS BT MAIN-STATION 1 after 11/08/2017 Insurance Type Payer Benefit Subscriber ID Effective Phone Address Plan / Dates Group [employer] SELF-PAY [employer] xxxxxxxxx 2015- [phone] [id number] [place] [address]
--- OUTSIDE RECORDS SUMMARY | 2018-11-09 20:37 | XMS REPORT | Continuity of Care Document ---
Author Author [facility] Interface Address Unknown Phone Unavailable Problems Problem Status Onset Date Classification Date Reported Comments Source Irregular periods Active 06/23/2018 Problem 07/23/2018 [facility] Pelvic pain in female Active 06/05/2018 Problem 07/23/2018 [facility] ACUTE APPENDICITIS WITH GENERALIZED PERITONITIS Active 03/29/2014 Condition 03/29/2014 [facility] SEIZURES Active 05/15/2012 [facility] SYNCOPE Active 05/05/2012 [facility] PEDI/CCL/R Active 05/05/2012 [facility] SEZURES Active 01/04/2012 [facility] Urinary tract infection Active 12/09/2011 Problem 07/23/2018 [facility] AMS Active 09/24/2011 [facility] Seizure Active Problem 06/25/2012 [facility] Pseudoseizure Active Problem 07/23/2018 [facility] Mood disorder Active Problem 07/23/2018 [facility] FEBRILE CONVULSIONS NOS Active [facility] Medications Medication Details Route Status Patient Instructions Ordering Provider Order Date Source Levonorgestrel-Ethinyl Estradiol 0.1 Mg-20 McG Tablet Lutera (28) 0.1 Mg-20 McG Tablet Take 1 tablet by mouth daily As directed on the pouch. Oral Active 06/23/2018 [facility] Ferrous Sulfate 325 Mg (65 Mg Iron) Tablet Feosol 325 Mg (65 Mg Iron) Tablet Take 1 tablet by mouth daily (with breakfast) While you are bleeding. Oral Active 06/23/2018 [facility] Ibuprofen 800 Mg Tablet Take 1 tablet by mouth every 8 hours as needed for Pain. 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 [facility] Depakote Sprinkles 125 mg, 1 cap, Route: PO, Drug form: CAP, Daily, Dosing Weight 70.1, kg, Start date: 06/24/12 9:00:00, Duration: 30 day, Stop date: 07/23/12 9:00:00 PO No Longer Active [facility] 06/24/2012 [facility] Depakote ER 500 mg, 1 tab, Route: PO, Drug form: ERTAB, Daily, Dosing Weight 70.1, kg, Start date: 06/24/12 9:00:00, Duration: 30 day, Stop date: 07/23/12 9:00:00 PO No Longer Active [facility] 06/24/2012 [facility] influenza virus vaccine, inactivated 0.5 ml, Route: IM, Drug Form: INJ, ONCALL, Start date: 06/23/12 20:30:00, Duration: 0 IM No Longer Active [facility] 06/24/2012 [facility] Tylenol 650 mg, 2 tab, Route: PO, Drug form: TAB, Q4H, PRN Pain Score 1-3, Start date: 06/23/12 19:41:00, Duration: 30 day, Stop date: 07/23/12 19:40:00 PO No Longer Active [facility] 06/24/2012 [facility] propranolol 80 mg oral capsule, extended release 80 mg, 1 cap, PO, Daily, 30 cap, 3, 3, Substitution Allowed PO Active [facility] 06/23/2012 [facility] ondansetron 4 mg, 5 mL, Route: PO, Drug form: SOLN, Q6H, Dosing Weight 70.1, kg, PRN Nausea & Vomiting, Start date: 06/23/12 15:22:00, Duration: 30 day, Stop date: 07/23/12 15:21:00 PO No Longer Active [facility] 06/23/2012 [facility] acetaminophen 650 mg, 20.3 mL, Route: PO, Drug form: LIQ, Q4H, Dosing Weight 70.1, kg, PRN Pain Score 1-3, Start date: 06/23/12 15:22:00, Duration: 30 day, Stop date: 07/23/12 15:21:00 PO No Longer Active [facility] 06/23/2012 [facility] D5W 1/2NS + KCL 20mEq/L 1000ml (Premix) 1,000 mL 1,000 mL, Rate: 100 ml/hr, Infuse over: 10 hr, Route: IV, kg, Total Volume: 1,000, Start date: 06/23/12 15:22:00, Duration: 30 day, Stop date: 07/23/12 15:21:00 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 [facility] propranolol 80 mg oral tablet 80 mg, 1 tab, PO, BID, 60 tab, Substitution Allowed, TAB PO No Longer Active 06/23/2012 [facility] Florinef Acetate 0.1 mg oral tablet 0.1 mg, 1 tab, PO, Daily, 30 tab, Substitution Allowed, TAB PO Active 06/23/2012 [facility] Depakote Sprinkles 125 mg, 1 cap, Route: PO, Drug form: CAP, Daily, Start date: 01/07/12 19:00:00, Duration: 30 day, Stop date: 02/05/12 19:00:00 PO No Longer Active Reza 01/08/2012 [facility] Depakote ER 250 mg, 1 tab, Route: PO, Drug form: ERTAB, Daily, Start date: 01/07/12 19:00:00, Stop date: 02/05/12 19:00:00 PO No Longer Active Syed 01/08/2012 [facility] Celexa 10 mg, 1 tab, Route: PO, Drug form: TAB, QAM, Start date: 01/07/12 7:00:00, Duration: 30 day, Stop date: 02/05/12 7:00:00 PO No Longer Active Reza 01/07/2012 [facility] Cerebyx 1,254 mg, 25.08 mL, Route: IV, Drug form: INJ, PRN, PRN Seizure, Start date: 01/07/12 6:24:00, Duration: 30 day, Stop date: 02/06/12 6:23:00 IV No Longer Active Chaprl 01/07/2012 [facility] Diastat 15 mg, 1.5 mL, Route: NE, Drug form: GEL, PRN, PRN Seizure, Start date: 01/07/12 6:22:00, Duration: 30 day, Stop date: 02/06/12 6:21:00 NE No Longer Active Chahil 01/07/2012 [facility] Valium 5 mg, 1 mL, Route: IV, Drug form: INJ, PRN, PRN Seizure, Start date: 01/07/12 6:19:00, Duration: 30 day, Stop date: 02/06/12 6:18:00 IV No Longer Active Chahil 01/07/2012 [facility] Ativan 6 mg, 3 mL, Route: IV, Drug form: INJ, PRN, PRN Seizure, Start date: 01/06/12 23:49:00, Duration: 30 day, Stop date: 02/05/12 23:48:00 IV No Longer Active Reza 01/07/2012 [facility] Depakote ER 500 mg, 2 tab, Route: PO, Drug form: ERTAB, Daily, Start date: 01/06/12 19:00:00, Stop date: 02/03/12 19:00:00 PO No Longer Active Syed 01/07/2012 [facility] Depakote ER 500 mg, 2 tab, Route: PO, Drug form: ERTAB, ONCE, Start date: 01/05/12 21:00:00, Stop date: 01/05/12 21:00:00 PO No Longer Active Syed 01/06/2012 [facility] Depakote Sprinkles 125 mg, 1 cap, Route: PO, Drug form: CAP, Daily, Start date: 01/05/12 19:00:00, Duration: 30 day, Stop date: 02/03/12 19:00:00 PO No Longer Active Reza 01/06/2012 [facility] Depakote ER 500 mg, 1 tab, Route: PO, Drug form: ERTAB, Daily, Start date: 01/05/12 19:00:00, Duration: 30 day, Stop date: 02/03/12 19:00:00 PO No Longer Active Reza 01/06/2012 [facility] Celexa 10 mg, 1 tab, Route: PO, Drug form: TAB, QAM, Start date: 01/05/12 7:00:00, Duration: 30 day, Stop date: 02/03/12 7:00:00 PO No Longer Active Reza 01/05/2012 [facility] Synera 1 patch, Route: TOP, Drug Form: FILM, PRN, PRN Procedure, Start date: 01/05/12 4:12:00, Duration: 30 day, Stop date: 02/04/12 4:11:00 TOP No Longer Active Reza 01/05/2012 [facility] ethyl chloride topical 1 spray, Route: TOP, PRN, Drug form: SPRY PRN Procedure, Start date: 01/05/12 4:11:00, Duration: 30 day, Stop date: 02/04/12 4:10:00 TOP No Longer Active Reza 01/05/2012 [facility] Ativan 6 mg, 3 mL, Route: IV, Drug form: INJ, PRN, PRN Seizure, Start date: 01/05/12 4:09:00, Duration: 30 day, Stop date: 02/04/12 4:08:00 IV No Longer Active Reza 01/05/2012 [facility] Celexa Substitution Allowed Active 09/24/2011 [facility] Depakote Substitution Allowed Active 09/24/2011 [facility] Celexa 10 mg oral tablet 10 mg, 1 tab, PO, Daily, 30 tab, Substitution Allowed, TAB PO Active 09/20/2011 [facility] Depakote Sprinkles Substitution Allowed Active 09/20/2011 [facility] Depakote ER 500 mg oral tablet, extended release 500 mg, 1 tab, PO, Daily, 30 tab, Substitution Allowed, ERTAB PO Active 09/20/2011 [facility] Divalproex Er 500 Mg Tablet,Extended Release 24 Hr Take 500 mg by mouth daily. Oral Active [facility] Divalproex 125 Mg Capsule,Delayed Release Sprinkle Take 125 mg by mouth 2 times daily. Oral Active [facility] Allergies, Adverse Reactions, Alerts Substance Category Reaction Severity Reaction type Status Date Reported Comments Source Penicillins Hives High Propensity to adverse reactions to drug Active 06/11/2010 [facility] PENICILLIN Drug allergy PENICILLIN 03/29/2014 [facility] penicillins drug allergy Allergy Active [facility] Immunizations Immunization Date Given Site Status Last Updated Comments Source influenza virus vaccine, inactivated 06/24/2012 completed [facility] DTP Diphtheria, Tetanus, Pertussis Vaccine 07/20/1996 [facility] Hib Haemophilus Influenzae Type B 07/20/1996 [facility] MMR Measles, Mumps, Rubella Vaccine 07/20/1996 completed [facility] Hepatitis B Vaccine 02/09/1996 [facility] DTP Diphtheria, Tetanus, Pertussis Vaccine 02/09/1996 completed [facility] Hib Haemophilus Influenzae Type B 02/09/1996 completed [facility] Polio OPV 02/09/1996 completed [facility] DTP Diphtheria, Tetanus, Pertussis Vaccine 1995 completed [facility] Hib Haemophilus Influenzae Type B 1995 completed [facility] Polio OPV 1995 completed [facility] Hepatitis B Vaccine 1995 completed [facility] Results Order Name Results Value Reference Range Date Interpretation Comments Source HIV-1/HIV-2 ROUTINE SCREENING HIV-1/HIV-2 Negative NEG 06/23/2018 [facility] UA CHEMISTRIES Color Yellow 06/23/2018 [facility] UA CHEMISTRIES Clarity Hazy 06/23/2018 [facility] UA CHEMISTRIES Spec [place] 1.019 1.001 - 1.035 06/23/2018 [facility] UA CHEMISTRIES pH 6.0 5 - 8 06/23/2018 [facility] UA CHEMISTRIES Protein 2+ NEG 06/23/2018 [facility] UA CHEMISTRIES Glucose Negative NEG 06/23/2018 [facility] UA CHEMISTRIES Ketone 1+ NEG 06/23/2018 [facility] UA CHEMISTRIES Bilirubin Negative NEG 06/23/2018 [facility] UA CHEMISTRIES Nitrate Negative NEG 06/23/2018 [facility] UA CHEMISTRIES Urobilinogen <1.0 0.2 - 1 06/23/2018 [facility] UA CHEMISTRIES Leukocyte Negative NEG 06/23/2018 [facility] UA CHEMISTRIES Blood 3+ NEG 06/23/2018 [facility] UA CHEMISTRIES RBC >182 0 - 4 06/23/2018 [facility] UA CHEMISTRIES WBC 16 0 - 5 06/23/2018 [facility] UA CHEMISTRIES Epithelial Cell 5 /HPF 06/23/2018 [facility] UA CHEMISTRIES Mucous Present 06/23/2018 [facility] UA CHEMISTRIES Lab Interpretation Abnormal 06/23/2018 [facility] TEST Negative 06/23/2018 [facility] CBC/DIFF WBC 4.6 K/uL 4.5 - 11 06/23/2018 [facility] CBC/DIFF RBC 4.37 4.20 - 5.40 06/23/2018 [facility] CBC/DIFF Hemoglobin 13.0 g/dL 12 - 16 06/23/2018 [facility] CBC/DIFF Hematocrit 39.2 % 37 - 47 06/23/2018 [facility] CBC/DIFF MCV 90 fL 82 - 92 06/23/2018 [facility] CBC/DIFF MCH 29.7 pg 27 - 32 06/23/2018 [facility] CBC/DIFF MCHC 33.2 g/dL 32 - 36 06/23/2018 [facility] CBC/DIFF RDW 44.0 fL 36.4 - 46.3 06/23/2018 [facility] CBC/DIFF Platelet 332 K/uL 150 - 400 06/23/2018 [facility] CBC/DIFF Mean Platelet Volume 11.1 fL 9.4 - 12.4 06/23/2018 [facility] CBC/DIFF Percent NRBC 0.0 06/23/2018 [facility] CBC/DIFF Absolute NRBC 0.00 06/23/2018 [facility] CBC/DIFF Neutrophil 49.2 % 34 - 70 06/23/2018 [facility] CBC/DIFF Lymphocyte 42.2 % 20 - 50 06/23/2018 [facility] CBC/DIFF Monocyte 7.1 % 5 - 12 06/23/2018 [facility] CBC/DIFF Eosinophil 0.9 % 0.7 - 5 06/23/2018 [facility] CBC/DIFF Basophil 0.4 % 0.1 - 1.2 06/23/2018 [facility] CBC/DIFF Pct Immat Gran 0.2 0.0 - 0.5 06/23/2018 [facility] CBC/DIFF Neutrophil, Abs 2.28 K/uL 1.56 - 6.13 06/23/2018 [facility] CBC/DIFF Lymphocyte, Abs 1.96 K/uL 1.18 - 3.74 06/23/2018 [facility] CBC/DIFF Monocyte, Abs 0.33 K/uL 0.24 - 0.36 06/23/2018 [facility] CBC/DIFF Eosinophil, Abs 0.04 K/uL 0.04 - 0.36 06/23/2018 [facility] CBC/DIFF Basophil, Abs 0.02 K/uL 0.01 - 0.08 06/23/2018 [facility] CBC/DIFF Absol Immat Gran 0.01 K/uL 0 - 0.03 06/23/2018 [facility] POC CO2 POC 27 mmol/L 21 - 32 06/23/2018 [facility] POC Chloride POC 101 mmol/L 98 - 107 06/23/2018 [facility] POC Potassium POC 3.9 mmol/L 3.5 - 5.1 06/23/2018 [facility] POC Sodium POC 140 mmol/L 136 - 145 06/23/2018 [facility] POC Glucose POC 77 mg/dL 74 - 106 06/23/2018 [facility] POC Urea Nitrogen POC 8 mg/dL 7 - 18 06/23/2018 [facility] POC Creatinine POC 0.7 mg/dL 0.6 - 1.3 06/23/2018 [facility] POC Calcium Ionized POC 1.18 mmol/L 1.15 - 1.29 06/23/2018 [facility] POC Hemoglobin POC 16.7 g/dL 12 - 16 06/23/2018 [facility] POC Hematocrit POC 49.0 % 37 - 47 06/23/2018 [facility] POC GFR, Estimated >60 mL/min/1.73 m2 06/23/2018 [facility] POC GFR, Estim, Afr-Am >60 mL/min/1.73 m2 06/23/2018 [facility] POC Lab Interpretation Abnormal 06/23/2018 [facility] U/S TRANSVAGINAL IMPRESSION: Unremarkable pelvic ultrasound exam. [...] Liu MD, 06/05/2018 8:24 PM 06/06/2018 [facility] U/S PELVIS LTD NON-OB IMPRESSION: Unremarkable pelvic [...] Liu MD, 06/05/2018 8:24 PM 06/06/2018 [facility] HIV-1/HIV-2 ROUTINE SCREENING HIV-1/HIV-2 Negative NEG 06/06/2018 [facility] HCG, QUANTITATIVE hCG, Quantitative <1 <5 mIU/mL 06/05/2018 [facility] UA CHEMISTRIES Color Yellow 06/05/2018 [facility] UA CHEMISTRIES Clarity Hazy 06/05/2018 [facility] UA CHEMISTRIES Spec [place] 1.020 1.001 - 1.035 06/05/2018 [facility] UA CHEMISTRIES pH 6.0 5 - 8 06/05/2018 [facility] UA CHEMISTRIES Protein 1+ NEG 06/05/2018 [facility] UA CHEMISTRIES Glucose Negative NEG 06/05/2018 [facility] UA CHEMISTRIES Ketone Negative NEG 06/05/2018 [facility] UA CHEMISTRIES Bilirubin Negative NEG 06/05/2018 [facility] UA CHEMISTRIES Nitrate Negative NEG 06/05/2018 [facility] UA CHEMISTRIES Urobilinogen <1.0 0.2 - 1 06/05/2018 [facility] UA CHEMISTRIES Leukocyte 2+ NEG 06/05/2018 [facility] UA CHEMISTRIES Blood 2+ NEG 06/05/2018 [facility] UA CHEMISTRIES RBC 8 0 - 4 06/05/2018 [facility] UA CHEMISTRIES WBC 12 0 - 5 06/05/2018 [facility] UA CHEMISTRIES Bacteria Few 06/05/2018 [facility] UA CHEMISTRIES Epithelial Cell 26 /HPF 06/05/2018 [facility] UA CHEMISTRIES Mucous Present 06/05/2018 [facility] UA CHEMISTRIES Lab Interpretation Abnormal 06/05/2018 [facility] LIPASE Lipase 34 U/L 11 - 82 06/05/2018 [facility] LIVER PROFILE T Protein 8.0 g/dL 6 - 8.3 06/05/2018 [facility] LIVER PROFILE Albumin 4.9 g/dL 3.7 - 5.3 06/05/2018 [facility] LIVER PROFILE T Bilirubin 0.3 mg/dL 0.2 - 1.2 06/05/2018 [facility] LIVER PROFILE Alk Phos 72 U/L 34 - 104 06/05/2018 [facility] LIVER PROFILE AST 13 U/L 13 - 39 06/05/2018 [facility] LIVER PROFILE ALT 9 U/L 7 - 52 06/05/2018 [facility] LIVER PROFILE D Bilirubin 0.1 mg/dL 0 - 0.2 06/05/2018 [facility] CBC/DIFF WBC 4.4 K/uL 4.5 - 11 06/05/2018 [facility] CBC/DIFF RBC 4.61 4.20 - 5.40 06/05/2018 [facility] CBC/DIFF Hemoglobin 13.5 g/dL 12 - 16 06/05/2018 [facility] CBC/DIFF Hematocrit 41.9 % 37 - 47 06/05/2018 [facility] CBC/DIFF MCV 91 fL 82 - 92 06/05/2018 [facility] CBC/DIFF MCH 29.3 pg 27 - 32 06/05/2018 [facility] CBC/DIFF MCHC 32.2 g/dL 32 - 36 06/05/2018 [facility] CBC/DIFF RDW 45.1 fL 36.4 - 46.3 06/05/2018 [facility] CBC/DIFF Platelet 344 K/uL 150 - 400 06/05/2018 [facility] CBC/DIFF Mean Platelet Volume 11.1 fL 9.4 - 12.4 06/05/2018 [facility] CBC/DIFF Percent NRBC 0.0 06/05/2018 [facility] CBC/DIFF Absolute NRBC 0.00 06/05/2018 [facility] CBC/DIFF Neutrophil 41.8 % 34 - 70 06/05/2018 [facility] CBC/DIFF Lymphocyte 48.5 % 20 - 50 06/05/2018 [facility] CBC/DIFF Monocyte 7.7 % 5 - 12 06/05/2018 [facility] CBC/DIFF Eosinophil 0.9 % 0.7 - 5 06/05/2018 [facility] CBC/DIFF Basophil 1.1 % 0.1 - 1.2 06/05/2018 [facility] CBC/DIFF Pct Immat Gran 0.0 0.0 - 0.5 06/05/2018 [facility] CBC/DIFF Neutrophil, Abs 1.83 K/uL 1.56 - 6.13 06/05/2018 [facility] CBC/DIFF Lymphocyte, Abs 2.13 K/uL 1.18 - 3.74 06/05/2018 [facility] CBC/DIFF Monocyte, Abs 0.34 K/uL 0.24 - 0.36 06/05/2018 [facility] CBC/DIFF Eosinophil, Abs 0.04 K/uL 0.04 - 0.36 06/05/2018 [facility] CBC/DIFF Basophil, Abs 0.05 K/uL 0.01 - 0.08 06/05/2018 [facility] CBC/DIFF Absol Immat Gran 0.00 K/uL 0 - 0.03 06/05/2018 [facility] CBC/DIFF Lab Interpretation Abnormal 06/05/2018 [facility] POC CO2 POC 26 mmol/L 21 - 32 06/05/2018 [facility] POC Chloride POC 102 mmol/L 98 - 107 06/05/2018 [facility] POC Potassium POC 4.1 mmol/L 3.5 - 5.1 06/05/2018 [facility] POC Sodium POC 140 mmol/L 136 - 145 06/05/2018 [facility] POC Glucose POC 96 mg/dL 74 - 106 06/05/2018 [facility] POC Urea Nitrogen POC 10 mg/dL 7 - 18 06/05/2018 [facility] POC Creatinine POC 0.7 mg/dL 0.6 - 1.3 06/05/2018 [facility] POC Calcium Ionized POC 1.21 mmol/L 1.15 - 1.29 06/05/2018 [facility] POC Hemoglobin POC 16.0 g/dL 12 - 16 06/05/2018 [facility] POC Hematocrit POC 47.0 % 37 - 47 06/05/2018 [facility] POC GFR, Estimated >60 mL/min/1.73 m2 06/05/2018 [facility] POC GFR, Estim, Afr-Am >60 mL/min/1.73 m2 06/05/2018 [facility] BLOOD BANK RESULTS Antibody Scrn Negative (06/23/2012 15:09:00) 06/23/2012 Normal [facility] BLOOD BANK RESULTS ABO/Rh O POS 06/23/2012 Unknown [facility] CHEMISTRY Phosphorus 4.2 mg/dL 2.5 - 4.5 06/23/2012 Normal [facility] CHEMISTRY Magnesium Lvl 1.5 mg/dL 1.8 - 2.4 06/23/2012 LOW [facility] CHEMISTRY eGFR 96 mL/min/1.73m2 06/23/2012 NA 1Result Comment: The eGFR is calculated using the modified Cornejo equation 0.413 x Height (cm) /Serum Creatinine (mg/dL). [facility] CHEMISTRY AST 28 unit/L 0 - 37 06/23/2012 Normal [facility] CHEMISTRY ALT 20 unit/L 0 - 65 06/23/2012 Normal [facility] CHEMISTRY Chloride Lvl 105 meq/L 95 - 109 06/23/2012 Normal [facility] CHEMISTRY CO2 21 meq/L 24 - 32 06/23/2012 LOW [facility] CHEMISTRY Bili Total 0.4 mg/dL 0.2 - 1.3 06/23/2012 Normal [facility] CHEMISTRY Calcium Lvl 8.4 mg/dL 8.5 - 10.5 06/23/2012 LOW [facility] CHEMISTRY BUN 9 mg/dL 7 - 22 06/23/2012 Normal [facility] CHEMISTRY Creatinine Lvl 0.7 mg/dL 0.5 - 1.4 06/23/2012 Normal [facility] CHEMISTRY Alk Phos 60 unit/L 39 - 136 06/23/2012 Normal [facility] CHEMISTRY Albumin Lvl 3.3 g/dL 3.5 - 5.0 06/23/2012 LOW [facility] CHEMISTRY Glucose Lvl 66 mg/dL 70 - 99 06/23/2012 LOW 2Interpretive Data: Adult reference range values reflect the clinical guidelines of the [employer]. [facility] CHEMISTRY Total Protein 6.7 g/dL 6.4 - 8.4 06/23/2012 Normal [facility] CHEMISTRY Sodium Lvl 139 meq/L 135 - 145 06/23/2012 Normal [facility] CHEMISTRY Potassium Lvl 4.0 meq/L 3.5 - 5.1 06/23/2012 Normal [facility] CHEMISTRY AGAP 17.0 meq/L 10.0 - 20.0 06/23/2012 Normal [facility] CHEMISTRY A/G Ratio 1.0 0.7 - 1.6 06/23/2012 Normal [facility] CHEMISTRY B/C Ratio 13 6 - 25 06/23/2012 Normal [facility] CHEMISTRY Globulin 3.4 g/dL 2.0 - 4.0 06/23/2012 Normal [facility] HEMATOLOGY Basophils 0.7 % 0.0 - 1.0 06/23/2012 Normal [facility] HEMATOLOGY Monocytes 7.1 % 2.0 - 12.0 06/23/2012 Normal [facility] HEMATOLOGY Lymphocytes 43.2 % 20.0 - 40.0 06/23/2012 HI [facility] HEMATOLOGY Segs 48.8 % 45.0 - 75.0 06/23/2012 Normal [facility] HEMATOLOGY Eosinophils 0.2 % 0.0 - 4.0 06/23/2012 Normal [facility] HEMATOLOGY Eosinophils # 0.0 K/CMM 0.0 - 0.5 06/23/2012 Normal [facility] HEMATOLOGY Basophils # 0.0 K/CMM 0.0 - 0.2 06/23/2012 Normal [facility] HEMATOLOGY Monocytes # 0.3 K/CMM 0.0 - 0.8 06/23/2012 Normal [facility] HEMATOLOGY Lymphocytes # 1.9 K/CMM 1.0 - 5.5 06/23/2012 Normal [facility] HEMATOLOGY Segs-Bands # 2.1 K/CMM 1.5 - 8.1 06/23/2012 Normal [facility] HEMATOLOGY WBC 4.3 K/CMM 3.7 - 10.4 06/23/[address] [facility] HEMATOLOGY RBC 3.41 M/CMM 4.20 - 5.40 06/23/2012 [facility] HEMATOLOGY RDW 12.8 % 11.5 - 14.5 06/23/[address] [facility] HEMATOLOGY MPV 9.6 fL 7.4 - 10.4 06/23/[address] [facility] HEMATOLOGY Platelet 222 K/CMM 133 - 450 06/23/[address] [facility] HEMATOLOGY Hct 31.3 % 36.0 - 48.0 06/23/2012 [facility] HEMATOLOGY MCHC 33.9 g/dL 32.0 - 36.0 06/23/[address] [facility] HEMATOLOGY MCH 31.1 pg 27.0 - 31.0 06/23/2012 [facility] HEMATOLOGY MCV 91.8 fL 81.0 - 99.0 06/23/[address] [facility] HEMATOLOGY Hgb 10.6 g/dL 12.0 - 16.0 06/23/2012 [facility] CHEMISTRY UDS Note See Note [...] Methadone 300 ng/mL Urine alcohol 20 mg/dL [facility] CHEMISTRY U Phencyc Scr Negative *NA* (05/15/2012 19:28:00) Negative 05/16/2012 NA [facility] CHEMISTRY U Opiate Scr Negative *NA* (05/15/2012 19:28:00) Negative 05/16/2012 NA [facility] CHEMISTRY U Cannab Scr Negative *NA* (05/15/2012 19:28:00) Negative 05/16/2012 NA [facility] CHEMISTRY U Cocaine Scr Negative *NA* (05/15/2012 19:28:00) Negative 05/16/2012 NA [facility] CHEMISTRY U Benzodia Scr Negative *NA* (05/15/2012 19:28:00) Negative 05/16/2012 NA [facility] CHEMISTRY U Yaneth Scr Negative *NA* (05/15/2012 19:28:00) Negative 05/16/2012 NA [facility] CHEMISTRY U Amph Scr Negative *NA* (05/15/2012 19:28:00) Negative 05/16/2012 NA [facility] CHEMISTRY U Preg Negative (05/15/2012 19:28:00) Negative 05/16/2012 Normal [facility] BEDSIDE GLUCOSE TESTING Gluc POC Lifscn 91 mg/dL 70 - 99 05/15/2012 Normal 1Interpretive Data: Upper Reportable Limit: 200 mg/dL. [facility] CHEMISTRY Phosphorus 3.5 mg/dL 2.5 - 4.5 01/31/2012 Normal [facility] CHEMISTRY Magnesium Lvl 1.7 mg/dL 1.8 - 2.4 01/31/2012 LOW [facility] CHEMISTRY A/G Ratio 0.9 0.7 - 1.6 01/31/2012 Normal [facility] CHEMISTRY Globulin 3.7 g/dL 2.0 - 4.0 01/31/2012 Normal [facility] CHEMISTRY B/C Ratio 14 6 - 25 01/31/2012 Normal [facility] CHEMISTRY AGAP 10.4 meq/L 10.0 - 20.0 01/31/2012 Normal [facility] CHEMISTRY Bili Total 0.2 mg/dL 0.2 - 1.3 01/31/2012 Normal [facility] CHEMISTRY Alk Phos 88 U/L 39 - 136 01/31/2012 Normal [facility] CHEMISTRY AST 18 U/L 0 - 37 01/31/2012 Normal [facility] CHEMISTRY Total Protein 7.2 g/dL 6.4 - 8.4 01/31/2012 Normal [facility] CHEMISTRY ALT 30 U/L 0 - 65 01/31/2012 Normal [facility] CHEMISTRY Albumin Lvl 3.5 g/dL 3.5 - 5.0 01/31/2012 Normal [facility] CHEMISTRY Calcium Lvl 8.9 mg/dL 8.5 - 10.5 01/31/2012 Normal [facility] CHEMISTRY CO2 28 meq/L 24 - 32 01/31/2012 Normal [facility] CHEMISTRY Chloride Lvl 103 meq/L 95 - 109 01/31/2012 Normal [facility] CHEMISTRY Glucose Lvl 108 mg/dL 70 - 99 01/31/2012 [place] 1Interpretive Data: Adult reference range values reflect the clinical guidelinesof the [place] [employer]. [facility] CHEMISTRY Creatinine Lvl 0.7 mg/dL 0.5 - 1.4 01/31/2012 Normal [facility] CHEMISTRY BUN 10 mg/dL 7 - 22 01/31/2012 Normal [facility] CHEMISTRY Potassium Lvl 3.4 meq/L 3.5 - 5.1 01/31/2012 LOW [facility] CHEMISTRY Sodium Lvl 138 meq/L 135 - 145 01/31/2012 Normal [facility] CHEMISTRY Ammonia 34.0 umol/L <=45.0 01/31/2012 Normal [facility] HEMATOLOGY MCV 92.4 fL 81.0 - 99.0 01/31/2012 Normal [facility] HEMATOLOGY Hct 36.0 % 36.0 - 48.0 01/31/2012 Normal [facility] HEMATOLOGY MCHC 34.8 g/dL 32.0 - 36.0 01/31/2012 Normal [facility] HEMATOLOGY MCH 32.1 pg 27.0 - 31.0 01/31/2012 HI [facility] HEMATOLOGY RDW 12.6 % 11.5 - 14.5 01/31/2012 Normal [facility] HEMATOLOGY Platelet 235 K/CMM 133 - 450 01/31/2012 Normal [facility] HEMATOLOGY MPV 8.9 fL 7.4 - 10.4 01/31/2012 Normal [facility] HEMATOLOGY WBC 5.3 K/CMM 3.7 - 10.4 01/31/2012 Normal [facility] HEMATOLOGY RBC 3.89 M/CMM 4.20 - 5.40 01/31/2012 LOW [facility] HEMATOLOGY Hgb 12.5 g/dL 12.0 - 16.0 01/31/2012 Normal [facility] HEMATOLOGY Polychrom Slight (01/30/2012 23:55:00) None Seen 01/31/2012 Normal [facility] HEMATOLOGY Anisocyte 1+ *ABN* (01/30/2012 23:55:00) None Seen 01/31/2012 ABN [facility] HEMATOLOGY Basophils # 0.0 K/CMM 0.0 - 0.2 01/31/2012 Normal [facility] HEMATOLOGY Segs-Bands # 2.3 K/CMM 1.5 - 8.1 01/31/[address] [facility] HEMATOLOGY Basophils 0.8 % 0.0 - 1.0 01/31/2012 Normal [facility] HEMATOLOGY Eosinophils # 0.0 K/CMM 0.0 - 0.5 01/31/[address] [facility] HEMATOLOGY Lymphocytes # 2.5 K/CMM 1.0 - 5.5 01/31/[address] [facility] HEMATOLOGY Monocytes # 0.5 K/CMM 0.0 - 0.8 01/31/2012 Normal [facility] HEMATOLOGY Segs 43.6 % 45.0 - 75.0 01/31/2012 LOW [facility] HEMATOLOGY Lymphocytes 46.3 % 20.0 - 40.0 01/31/2012 [facility] HEMATOLOGY Eosinophils 0.8 % 0.0 - 4.0 01/31/[address] [facility] HEMATOLOGY Monocytes 8.5 % 2.0 - 12.0 01/31/[address] [facility] IMMUNOLOGY RPR Non Reactive (01/06/2012 10:47:00) Non Reactive 01/06/2012 Normal [facility] CHEMISTRY U Preg Negative (01/05/2012 01:50:00) Negative 01/05/2012 Normal [facility] CHEMISTRY Temp Olvin 37.0 Erendira 01/05/2012 NA [facility] CHEMISTRY BE Olvin 2 mMol/L -2-2 - 2 01/05/2012 Normal [facility] CHEMISTRY pCO2 Olvin 42 mm[Hg] 38 - 52 01/05/[address] [facility] CHEMISTRY pO2 Olvin 59 mm[Hg] 20 - 49 01/05/2012 [facility] CHEMISTRY HCO3 Olvin 27.2 mMol/L 22.0 - 26.0 01/05/2012 [facility] CHEMISTRY O2 Sat Olvin 91.0 % 40.0 - 70.0 01/05/2012 HI [facility] CHEMISTRY pH Olvin 7.42 7.28 - 7.42 01/05/2012 Normal [facility] CHEMISTRY Ammonia 35.0 umol/L <=45.0 01/05/2012 Normal [facility] CHEMISTRY Lactic Acid Lvl 0.9 mMol/L 0.5 - 2.2 01/05/2012 Normal [facility] CHEMISTRY Total Protein 8.1 g/dL 6.4 - 8.4 01/05/2012 Normal [facility] CHEMISTRY Bili Total 0.2 mg/dL 0.2 - 1.3 01/05/2012 Normal [facility] CHEMISTRY Bili Indirect 0.1 mg/dL 0.0 - 1.0 01/05/2012 Normal [facility] CHEMISTRY Phosphorus 4.5 mg/dL 2.5 - 4.5 01/05/2012 Normal [facility] CHEMISTRY Magnesium Lvl 2.0 mg/dL 1.8 - 2.4 01/05/2012 Normal [facility] CHEMISTRY AST 10 U/L 0 - 37 01/05/2012 Normal [facility] CHEMISTRY Trig 148 mg/dL 0 - 200 01/05/2012 Normal [facility] CHEMISTRY Bili Direct 0.1 mg/dL 0.0 - 0.3 01/05/2012 Normal [facility] CHEMISTRY Calcium Lvl 9.1 mg/dL 8.5 - 10.5 01/05/2012 Normal [facility] CHEMISTRY CO2 23 meq/L 24 - 32 01/05/2012 LOW [facility] CHEMISTRY Chloride Lvl 106 meq/L 95 - 109 01/05/2012 Normal [facility] CHEMISTRY Albumin Lvl 4.1 g/dL 3.5 - 5.0 01/05/2012 Normal [facility] CHEMISTRY ALT 16 U/L 0 - 65 01/05/2012 Normal [facility] CHEMISTRY Alk Phos 78 U/L 39 - 136 01/05/2012 Normal [facility] CHEMISTRY Potassium Lvl 4.1 meq/L 3.5 - 5.1 01/05/2012 Normal [facility] CHEMISTRY Sodium Lvl 141 meq/L 135 - 145 01/05/2012 Normal [facility] CHEMISTRY Creatinine Lvl 0.7 mg/dL 0.5 - 1.4 01/05/2012 Normal [facility] CHEMISTRY BUN 9 mg/dL 7 - 22 01/05/2012 Normal [facility] CHEMISTRY Glucose Lvl 83 mg/dL 70 - 99 01/05/2012 Normal 1Interpretive Data: Adult reference range values reflect the clinical guidelinesof the [place] [employer]. [facility] CHEMISTRY Total CK 161 U/L 12 - 191 01/05/2012 Normal [facility] HEMATOLOGY Basophils # 0.0 K/CMM 0.0 - 0.2 01/05/2012 Normal [facility] HEMATOLOGY Large Plt Slight *ABN* (01/04/2012 22:56:00) None Seen 01/05/2012 ABN [facility] HEMATOLOGY Segs-Bands # 3.1 K/CMM 1.5 - 8.1 01/05/2012 Normal [facility] HEMATOLOGY Lymphocytes # 2.4 K/CMM 1.0 - 5.5 01/05/2012 Normal [facility] HEMATOLOGY Eosinophils # 0.0 K/CMM 0.0 - 0.5 01/05/2012 Normal [facility] HEMATOLOGY Monocytes # 0.5 K/CMM 0.0 - 0.8 01/05/2012 Normal [facility] HEMATOLOGY Basophils 0.5 % 0.0 - 1.0 01/05/2012 Normal [facility] HEMATOLOGY RBC Morph Normal (01/04/2012 22:56:00) 01/05/2012 Normal [facility] HEMATOLOGY Segs 50.7 % 45.0 - 75.0 01/05/2012 Normal [facility] HEMATOLOGY Eosinophils 0.6 % 0.0 - 4.0 01/05/2012 Normal [facility] HEMATOLOGY Lymphocytes 40.1 % 20.0 - 40.0 01/05/2012 [facility] HEMATOLOGY Monocytes 8.1 % 2.0 - 12.0 01/05/2012 Normal [facility] HEMATOLOGY MPV 11.4 fL 7.4 - 10.4 01/05/2012 [facility] HEMATOLOGY Platelet 194 K/CMM 133 - 450 01/05/2012 Normal [facility] HEMATOLOGY RDW 12.9 % 11.5 - 14.5 01/05/2012 Normal [facility] HEMATOLOGY MCHC 33.0 g/dL 32.0 - 36.0 01/05/2012 Normal [facility] HEMATOLOGY MCV 92.2 fL 81.0 - 99.0 01/05/2012 Normal [facility] HEMATOLOGY MCH 30.4 pg 27.0 - 31.0 01/05/2012 Normal [facility] HEMATOLOGY Hct 38.7 % 36.0 - 48.0 01/05/2012 Normal [facility] HEMATOLOGY Hgb 12.8 g/dL 12.0 - 16.0 01/05/2012 Normal [facility] HEMATOLOGY RBC 4.19 M/CMM 4.20 - 5.40 01/05/2012 LOW [facility] HEMATOLOGY WBC 6.0 K/CMM 3.7 - 10.4 01/05/2012 Normal [facility] CHEMISTRY U Preg Negative (09/24/2011 14:19:00) Negative 09/24/2011 Normal [facility] URINALYSIS UA Renal Epi None Seen (09/24/2011 14:19:00) 09/24/2011 Normal [facility] URINALYSIS UA Mucus None Seen (09/24/2011 14:19:00) None Seen 09/24/2011 Normal [facility] URINALYSIS Micro? Performed (09/24/2011 14:19:00) 09/24/2011 Normal [facility] URINALYSIS UA Sq Epi None Seen (09/24/2011 14:19:00) Few 09/24/2011 Normal [facility] URINALYSIS UA RBC 21-50 /HPF *ABN* (09/24/2011 14:19:00) 0 - 2 09/24/2011 ABN [facility] URINALYSIS UA WBC None Seen (09/24/2011 14:19:00) None Seen 09/24/2011 Normal [facility] URINALYSIS UA Bacteria Occasional /HPF (09/24/2011 14:19:00) None Seen 09/24/2011 Normal [facility] URINALYSIS UA Blood Large *ABN* (09/24/2011 14:19:00) Negative 09/24/2011 ABN [facility] URINALYSIS UA Urobilinogen 0.2 EU/dL 0.1 - 1.0 09/24/2011 Normal [facility] URINALYSIS UA Nitrite Negative (09/24/2011 14:19:00) Negative 09/24/2011 Normal [facility] URINALYSIS UA Leuk Est Negative (09/24/2011 14:19:00) Negative 09/24/2011 Normal [facility] URINALYSIS UA Ketones 15 mg/dL *ABN* (09/24/2011 14:19:00) Negative 09/24/2011 ABN [facility] URINALYSIS UA Bili Negative *NA* (09/24/2011 14:19:00) Negative 09/24/2011 NA [facility] URINALYSIS UA pH 7.0 5.0 - 8.0 09/24/2011 Normal [facility] URINALYSIS UA Protein Negative (09/24/2011 14:19:00) Negative 09/24/2011 Normal [facility] URINALYSIS UA Glucose Negative (09/24/2011 14:19:00) Negative 09/24/2011 Normal [facility] URINALYSIS UA Color Yellow *NA* (09/24/2011 14:19:00) Yellow 09/24/2011 NA [facility] URINALYSIS UA Turbidity Slight Cloudy (09/24/2011 14:19:00) Clear 09/24/2011 Normal [facility] URINALYSIS UA Spec Grav 1.015 <=1.030 09/24/2011 Normal [facility] CHEMISTRY Phosphorus 2.9 mg/dL 2.5 - 4.5 09/24/2011 Normal [facility] CHEMISTRY Magnesium Lvl 1.7 mg/dL 1.8 - 2.4 09/24/2011 LOW [facility] CHEMISTRY Calcium Lvl 8.3 mg/dL 8.5 - 10.5 09/24/2011 LOW [facility] CHEMISTRY Potassium Lvl 5.7 meq/L 3.5 - 5.1 09/24/2011 [place] 1Result Comment: Specimen Moderately Hemolyzed. [facility] CHEMISTRY Chloride Lvl 105 meq/L 95 - 109 09/24/2011 Normal [facility] CHEMISTRY CO2 22 meq/L 24 - 32 09/24/2011 LOW [facility] CHEMISTRY Glucose Lvl 80 mg/dL 09/24/2011 NA 2Interpretive Data: Reference Ranges : 0 - 7 days : 41 - 90 mg/dL7 days - 150 yrs : 70 - 99 mg/dL (fasting), based on the clinical recommendations of the [place] [employer]. [facility] CHEMISTRY BUN 10 mg/dL 7 - 22 09/24/2011 Normal [facility] CHEMISTRY Creatinine Lvl 0.3 mg/dL 0.5 - 1.4 09/24/2011 LOW [facility] CHEMISTRY Sodium Lvl 137 meq/L 135 - 145 09/24/2011 Normal [facility] CHEMISTRY AGAP 15.7 meq/L 10.0 - 20.0 09/24/2011 Normal [facility] HEMATOLOGY Eosinophils 0.7 % 0.0 - 4.0 09/24/2011 Normal [facility] HEMATOLOGY Basophils 0.7 % 0.0 - 1.0 09/24/2011 Normal [facility] HEMATOLOGY Segs 58.4 % 45.0 - 75.0 09/24/2011 Normal [facility] HEMATOLOGY Lymphocytes 33.6 % 20.0 - 40.0 09/24/[address] [facility] HEMATOLOGY Monocytes 6.6 % 2.0 - 12.0 09/24/[address] [facility] HEMATOLOGY Segs-Bands # 2.5 K/CMM 1.5 - 8.1 09/24/[address] [facility] HEMATOLOGY Lymphocytes # 1.4 K/CMM 1.0 - 5.5 09/24/2011 Normal [facility] HEMATOLOGY Monocytes # 0.3 K/CMM 0.0 - 0.8 09/24/2011 Normal [facility] HEMATOLOGY Eosinophils # 0.0 K/CMM 0.0 - 0.5 09/24/[address] [facility] HEMATOLOGY Basophils # 0.0 K/CMM 0.0 - 0.2 09/24/[address] [facility] HEMATOLOGY Platelet 183 K/CMM 133 - 450 09/24/[address] [facility] HEMATOLOGY MPV 9.8 fL 7.4 - 10.4 09/24/2011 Normal [facility] HEMATOLOGY MCH 31.4 pg 27.0 - 31.0 09/24/2011 HI [facility] HEMATOLOGY MCHC 34.2 g/dL 32.0 - 36.0 09/24/[address] [facility] HEMATOLOGY RDW 12.6 % 11.5 - 14.5 09/24/[address] [facility] HEMATOLOGY RBC 4.07 M/CMM 4.20 - 5.40 09/24/2011 LOW [facility] HEMATOLOGY Hgb 12.8 g/dL 12.0 - 16.0 09/24/[address] [facility] HEMATOLOGY Hct 37.4 % 36.0 - 48.0 09/24/2011 Normal [facility] HEMATOLOGY MCV 91.8 fL 81.0 - 99.0 09/24/2011 Normal [facility] HEMATOLOGY WBC 4.2 K/CMM 3.7 - 10.4 09/24/2011 Normal [facility] CHEMISTRY Magnesium Lvl 1.8 mg/dL 1.8 - 2.4 09/20/2011 Normal [facility] CHEMISTRY Phosphorus 3.1 mg/dL 2.5 - 4.5 09/20/2011 Normal [facility] CHEMISTRY UDS Note See Note 2 *NA* [...] 50 ng/mLMethadone 300 ng/mLUrine alcohol 20 mg/dL [facility] CHEMISTRY U Phencyc Scr Negative *NA* (09/20/2011 17:00:00) Negative 09/20/2011 NA [facility] CHEMISTRY U Cannab Scr Negative *NA* (09/20/2011 17:00:00) Negative 09/20/2011 NA [facility] CHEMISTRY U Opiate Scr Negative *NA* (09/20/2011 17:00:00) Negative 09/20/2011 NA [facility] CHEMISTRY U Cocaine Scr Negative *NA* (09/20/2011 17:00:00) Negative 09/20/2011 NA [facility] CHEMISTRY U Yaneth Scr Negative *NA* (09/20/2011 17:00:00) Negative 09/20/2011 NA [facility] CHEMISTRY U Benzodia Scr Negative *NA* (09/20/2011 17:00:00) Negative 09/20/2011 NA [facility] CHEMISTRY U Amph Scr Negative *NA* (09/20/2011 17:00:00) Negative 09/20/2011 NA [facility] URINALYSIS UA WBC 3-5 /HPF (09/20/2011 17:00:00) None Seen 09/20/2011 Normal [facility] URINALYSIS UA Sq Epi None Seen (09/20/2011 17:00:00) Few 09/20/2011 Normal [facility] URINALYSIS UA RBC >100 /HPF *ABN* (09/20/2011 17:00:00) 0 - 2 09/20/2011 ABN [facility] URINALYSIS UA Bacteria Occasional /HPF (09/20/2011 17:00:00) None Seen 09/20/2011 Normal [facility] URINALYSIS UA Mucus Rare /LPF (09/20/2011 17:00:00) None Seen 09/20/2011 Normal [facility] URINALYSIS UA Nitrite Negative (09/20/2011 17:00:00) Negative 09/20/2011 Normal [facility] URINALYSIS Micro? Performed (09/20/2011 17:00:00) 09/20/2011 Normal [facility] URINALYSIS UA Leuk Est Trace *ABN* (09/20/2011 17:00:00) Negative 09/20/2011 ABN [facility] URINALYSIS UA Blood Large *ABN* (09/20/2011 17:00:00) Negative 09/20/2011 ABN [facility] URINALYSIS UA Ketones 40 mg/dL *ABN* (09/20/2011 17:00:00) Negative 09/20/2011 ABN [facility] URINALYSIS UA Urobilinogen 0.2 EU/dL 0.1 - 1.0 09/20/2011 Normal [facility] URINALYSIS UA Bili Small *ABN* (09/20/2011 17:00:00) Negative 09/20/2011 ABN [facility] URINALYSIS UA Color Red *ABN* (09/20/2011 17:00:00) Yellow 09/20/2011 ABN [facility] URINALYSIS UA Protein 30 mg/dL *ABN* (09/20/2011 17:00:00) Negative 09/20/2011 ABN [facility] URINALYSIS UA pH 6.0 5.0 - 8.0 09/20/2011 Normal [facility] URINALYSIS UA Spec Grav 1.025 <=1.030 09/20/2011 Normal [facility] URINALYSIS UA Turbidity Cloudy *ABN* (09/20/2011 17:00:00) Clear 09/20/2011 ABN [facility] URINALYSIS UA Glucose Negative (09/20/2011 17:00:00) Negative 09/20/2011 Normal [facility] CHEMISTRY Valproic Acid Lvl 83 ug/ml 50 - 100 09/20/2011 Normal [facility] CHEMISTRY Calcium Lvl 9.2 mg/dL 8.5 - 10.5 09/20/2011 Normal [facility] CHEMISTRY Potassium Lvl 4.1 meq/L 3.5 - 5.1 09/20/2011 Normal [facility] CHEMISTRY Sodium Lvl 139 meq/L 135 - 145 09/20/2011 Normal [facility] CHEMISTRY Chloride Lvl 103 meq/L 95 - 109 09/20/2011 Normal [facility] CHEMISTRY CO2 22 meq/L 24 - 32 09/20/2011 LOW [facility] CHEMISTRY Creatinine Lvl 0.7 mg/dL 0.5 - 1.4 09/20/2011 Normal [facility] CHEMISTRY Glucose Lvl 72 mg/dL 09/20/2011 NA 1Interpretive Data: Reference Ranges : 0 - 7 days : 41 - 90 mg/dL7 days - 150 yrs : 70 - 99 mg/dL (fasting), based on the clinical recommendations of the [place] [employer]. [facility] CHEMISTRY BUN 9 mg/dL 7 - 22 09/20/2011 Normal [facility] CHEMISTRY AGAP 18.1 meq/L 10.0 - 20.0 09/20/2011 Normal [facility] HEMATOLOGY Basophils # 0.0 K/CMM 0.0 - 0.2 09/20/2011 Normal [facility] HEMATOLOGY Eosinophils # 0.0 K/CMM 0.0 - 0.5 09/20/2011 Normal [facility] HEMATOLOGY Monocytes # 0.4 K/CMM 0.0 - 0.8 09/20/2011 Normal [facility] HEMATOLOGY Eosinophils 0.4 % 0.0 - 4.0 09/20/2011 Normal [facility] HEMATOLOGY Lymphocytes # 1.7 K/CMM 1.0 - 5.5 09/20/[address] [facility] HEMATOLOGY Basophils 0.4 % 0.0 - 1.0 09/20/[address] [facility] HEMATOLOGY Segs-Bands # 4.7 K/CMM 1.5 - 8.1 09/20/[address] [facility] HEMATOLOGY Segs 68.7 % 45.0 - 75.0 09/20/2011 Normal [facility] HEMATOLOGY Lymphocytes 24.7 % 20.0 - 40.0 09/20/[address] [facility] HEMATOLOGY Monocytes 5.8 % 2.0 - 12.0 09/20/[address] [facility] HEMATOLOGY MCV 92.3 fL 81.0 - 99.0 09/20/[address] [facility] [facility] HEMATOLOGY MCH 31.6 pg 27.0 - 31.0 09/20/2011 [facility] HEMATOLOGY RDW 12.6 % 11.5 - 14.5 09/20/[address] [facility] HEMATOLOGY MPV 10.5 fL 7.4 - 10.4 09/20/2011 [facility] HEMATOLOGY MCHC 34.2 g/dL 32.0 - 36.0 09/20/[address] [facility] HEMATOLOGY Platelet 186 K/CMM 133 - 450 09/20/[address] [facility] HEMATOLOGY RBC 4.15 M/CMM 4.20 - 5.40 09/20/2011 LOW [facility] HEMATOLOGY WBC 6.8 K/CMM 3.7 - 10.4 09/20/[address] [facility] HEMATOLOGY Hgb 13.1 g/dL 12.0 - 16.0 09/20/[address] [facility] HEMATOLOGY Hct 38.3 % 36.0 - 48.0 09/20/[address] [facility] Vital Signs Vital Sign Value Date Comments Source Systolic (mm Hg) 128 06/23/2018 [facility] Diastolic (mm Hg) 77 06/23/2018 [facility] Heart Rate 85 06/23/2018 [place] [facility] Temperature Oral (F) 36.72 Erendira 06/23/2018 [facility] Respitory Rate 18 06/23/2018 [facility] Systolic (mm Hg) 148 06/06/2018 [facility] Diastolic (mm Hg) 90 06/06/2018 [facility] Heart Rate 85 06/06/2018 [facility] Temperature Oral (F) 36.44 Erendira 06/06/2018 [facility] Respitory Rate 18 06/06/2018 [facility] Height 62 03/29/2014 [facility] Weight 137 03/29/2014 [facility] Temperature Oral (F) 98.1 F 03/29/2014 [facility] Heart Rate 80 03/29/2014 [facility] Systolic (mm Hg) 117 03/29/2014 [facility] Diastolic (mm Hg) 82 03/29/2014 [facility] Temperature Oral (F) 97.6 F 06/24/2012 [facility] Systolic (mm Hg) 113 06/24/2012 [facility] Respitory Rate 18 06/24/2012 [facility] Temperature Oral (F) 100.0 F 06/24/2012 [facility] Heart Rate 84 06/24/2012 [facility] Diastolic (mm Hg) 52 06/24/2012 [facility] Systolic (mm Hg) 120 06/23/2012 [facility] Diastolic (mm Hg) 61 06/23/2012 [facility] Temperature Oral (F) 98.8 F 06/23/2012 [facility] Heart Rate 96 06/23/2012 [facility] Respitory Rate 19 06/23/2012 [facility] Systolic (mm Hg) 121 06/23/2012 [facility] Diastolic (mm Hg) 58 06/23/2012 [facility] Respitory Rate 11 06/23/2012 [facility] Weight 70.100 06/23/2012 [facility] Height 162.00 cm 06/23/2012 [facility] Weight 67.273 05/15/2012 [facility] Height 157.48 cm 05/15/2012 [facility] Weight 66.000 04/13/2012 [facility] Height 160.50 cm 04/13/2012 [facility] Weight 63.636 01/31/2012 [facility] Height 157.48 cm 01/20/2012 [facility] Weight 63.636 01/20/2012 [facility] Diastolic (mm Hg) 63 01/07/2012 [facility] Respitory Rate 20 01/07/2012 [facility] Systolic (mm Hg) 100 01/07/2012 [facility] Heart Rate 90 01/07/2012 [facility] Temperature Oral (F) 98.3 F 01/07/2012 [facility] Systolic (mm Hg) 93 01/07/2012 [facility] Temperature Oral (F) 99.0 F 01/07/2012 [facility] Respitory Rate 19 01/07/2012 [facility] Heart Rate 82 01/07/2012 [facility] Diastolic (mm Hg) 62 01/07/2012 [facility] Temperature Oral (F) 98.1 F 01/07/2012 [facility] Heart Rate 79 01/07/2012 [facility] Diastolic (mm Hg) 67 01/07/2012 [facility] Systolic (mm Hg) 108 01/07/2012 [facility] Respitory Rate 18 01/07/2012 [facility] Height 151.00 cm 01/05/2012 [facility] Weight 62.700 01/05/2012 [facility] Weight 68.182 01/05/2012 [facility] Systolic (mm Hg) 141 09/24/2011 [facility] Heart Rate 75 09/24/2011 [facility] Diastolic (mm Hg) 85 09/24/2011 [facility] Respitory Rate 18 09/24/2011 [facility] Temperature Oral (F) 98.0 F 09/24/2011 [facility] Diastolic (mm Hg) 77 09/24/2011 [facility] Systolic (mm Hg) 138 09/24/2011 [facility] Respitory Rate 22 09/24/2011 [facility] Heart Rate 88 09/24/2011 [facility] Temperature Oral (F) 99.1 F 09/24/2011 [facility] Systolic (mm Hg) 142 09/24/2011 [facility] Respitory Rate 18 09/24/2011 [facility] Heart Rate 80 09/24/2011 [facility] Diastolic (mm Hg) 78 09/24/2011 [facility] Weight 70.455 09/24/2011 [facility] Temperature Oral (F) 98.2 F 09/24/2011 [facility] Height 157.48 cm 09/24/2011 [facility] Diastolic (mm Hg) 66 09/21/2011 [facility] Heart Rate 86 09/21/2011 [facility] Systolic (mm Hg) 128 09/21/2011 [facility] Temperature Oral (F) 98.7 F 09/21/2011 [facility] Respitory Rate 19 09/21/2011 [facility] Diastolic (mm Hg) 76 09/21/2011 [facility] Heart Rate 73 09/21/2011 [facility] Respitory Rate 16 09/21/2011 [facility] Systolic (mm Hg) 128 09/21/2011 [facility] Respitory Rate 25 09/20/2011 [facility] Weight 68.182 09/20/2011 [facility] Height 160.02 cm 09/20/2011 [facility] Diastolic (mm Hg) 66 09/20/2011 [facility] Systolic (mm Hg) 128 09/20/2011 [facility] Heart Rate 83 09/20/2011 [facility] Encounters Location Location Details Encounter Type Encounter Number Reason For Visit Attending Provider ADM Date DC Date Status Source [facility] Emergency [id number] 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 09/20/2011 09/20/2011 Active [facility] Emergency [id number] AMS LUCI ESTRADA 09/24/2011 09/24/2011 Active [facility] Inpatient [id number] SEZURES NIK SYED 01/05/2012 01/07/2012 Active [facility] Outpatient [id number] SYNCOPE LOAN FOSTER 01/20/2012 Active [facility] Emergency [id number] DENIAPARUL WASSERMAN 01/30/2012 01/31/2012 Active [facility] Outpatient [id number] SEIZURES MOHAMMED TALAT 04/13/2012 04/13/2012 Active [facility] Emergency [id number] SEIZURES ATIM UYA 05/15/2012 05/16/2012 Active [facility] OU [id number] SYNCOPE MOHAMMED TALAT 06/23/2012 06/23/2012 Active [facility] General Surgery 350 Office Visit [id number] Zak Keys MD 03/29/2014 03/29/2014 [facility] Lab Report [id number] Zak Keys MD 03/30/2014 03/30/2014 [facility] Emergency Center BT Emergency [id number] Pelvic pain in female 06/05/2018 06/06/2018 [facility] Emergency Center BT Emergency [id number] Irregular periods Adali ESCAMILLA 06/23/2018 06/23/2018 [facility] Procedures Procedure Code Date Perfomer Comments Source UA CHEMISTRIES 11495 06/23/2018 [facility] TEST 59820 06/23/2018 [facility] BMP POC 49801 06/23/2018 Unknown [facility] HIV-1/HIV-2 ROUTINE SCREENING 35206 06/23/2018 [facility] CBC/DIFF 66412 06/23/2018 [facility] TYPE AND SCREEN [id number] 06/23/2018 [facility] U/S TRANSVAGINAL [id number] 06/06/2018 [facility] U/S PELVIS LTD NON-OB [id number] 06/06/2018 [facility] BMP POC 01823 06/05/2018 Unknown [facility] HCG, QUANTITATIVE [id number] 06/05/2018 [facility] HIV-1/HIV-2 ROUTINE SCREENING 85434 06/05/2018 [facility] UA CHEMISTRIES [id number] 06/05/2018 [facility] CBC/DIFF 81877 06/05/2018 [facility] LIVER PROFILE [id number] 06/05/2018 [facility] LIPASE 78881 06/05/2018 [facility] TYPE AND SCREEN 95544 06/05/2018 [facility]
[2018-11-09] MEDS ORDERED: ONDANSETRON HCL 4 MG ORAL DISINTEGRATING TAB PO ONE (21:00)
[2018-11-09] MEDS ORDERED: ACETAMINOPHEN 325 MG TAB PO ONE (21:15)
[2018-11-10 00:29] LABS: BASOPHILS % 0.7 % (0.0-1.0); EOSINOPHILS % 0.4 % (0.0-6.0); HEMATOCRIT 40.8 % (34.2-44.1); LYMPHOCYTES # (AUTO) 1.3 (1.0-3.2); LYMPHOCYTES % 22.9 % (18.0-39.1); MEAN CORPUSCULAR HEMOGLOBIN 29.5 pg (28-32); MEAN CORPUSCULAR HGB CONC 31.9 g/dL (31-35); MEAN CORPUSCULAR VOLUME 92.5 fL (81-99); MONOCYTES # (AUTO) 0.9 (0.2-0.8); MONOCYTES % 15.4 % (4.4-11.3); NEUTROPHILS # (AUTO) 3.4 (2.1-6.9); NEUTROPHILS % 60.2 % (38.7-80.0); PLATELET COUNT 267 x10e3/uL (140-360); RED BLOOD COUNT 4.41 x10e6/uL (3.6-5.1); RED CELL DISTRIBUTION WIDTH 14.1 % (11.7-14.4)
[2018-11-10 00:33] LABS: CLARITY,URINE CLEAR (CLEAR); COLOR,URINE YELLOW (YELLOW); LEUKOCYTE ESTERASE ,URINE NEGATIVE (NEGATIVE); NITRITE,URINE NEGATIVE (NEGATIVE)
[2018-11-10 00:34] LABS: BILIRUBIN,URINE NEGATIVE (NEGATIVE); KETONES,URINE NEGATIVE (NEGATIVE); PROTEIN,URINE DIPSTICK NEGATIVE (NEGATIVE); URINE UROBILINOGEN 0.2 mg/dL (0.2 - 1)
[2018-11-10 00:46] LABS: ALANINE AMINOTRANSFERASE 12 IU/L (0-55); ALKALINE PHOSPHATASE 69 IU/L (40-150); ANION GAP 13.5 mmol/L (8-16); BLOOD UREA NITROGEN 6 mg/dL (7-26); BUN/CREATININE RATIO 7 (6-25); CALCIUM 9.8 mg/dL (8.4-10.2); CARBON DIOXIDE 26 mmol/L (22-29); CHLORIDE 100 mmol/L (98-107); CREATININE, SERUM 0.85 mg/dL (0.57-1.11); EST GLOMERULAR FILTRATION RATE > 60 ML/MIN (60-); GLUCOSE 96 mg/dL (74-118); POTASSIUM 3.5 mmol/L (3.5-5.1); SODIUM 136 mmol/L (136-145)
[2018-11-10 00:47] LABS: BACTERIA,URINE MODERATE /HPF; EPITHELIAL CELLS,URINE MODERATE /LPF; MUCUS,URINE MANY (RARE)
[2018-11-10 00:57] LABS: PREGNANCY TEST, URINE NEGATIVE (NEGATIVE)
--- NOTE | 2018-11-10 01:10 | Diagnostic Imaging Report ---
EXAMINATION: CHEST 2 VIEWS INDICATION: Cough. COMPARISON: None FINDINGS: TUBES and LINES: None. LUNGS: Lungs are well inflated. Lungs are clear. There is no evidence of pneumonia or pulmonary edema. PLEURA: No pleural effusion or pneumothorax. HEART AND MEDIASTINUM: The cardiomediastinal silhouette is unremarkable. BONES AND SOFT TISSUES: No acute osseous lesion. Soft tissues are unremarkable. UPPER ABDOMEN: No free air under the diaphragm. IMPRESSION: No acute thoracic abnormality. Signed by: Dr. Griffin Rowland M.D. on 11/10/2018 1:06 AM
[2018-11-10 01:26] VITALS: BP 110/62
== END 2018-11-10 01:42 | disposition home or self-care (01) ==
LOC: ER 20:32
DX: R50.9 Fever, unspecified (principal); R05 Cough; R11.2 Nausea with vomiting, unspecified; J20.9 Acute bronchitis, unspecified; N30.90 Cystitis, unspecified without hematuria; G40.909 Epilepsy, unspecified, not intractable, without status epilepticus; G90.1 Familial dysautonomia [Riley-Day]
CPT/HCPCS: 36415; 71046; 80053; 81001; 81025; 85025; 87400; 99284; Q0162

== ENCOUNTER 2018-11-11 22:31 | Emergency (ER) | payer SELFPAY ==
[~2018-11-11] VITALS: Ht 154.9 cm; Wt 79.4 kg
[2018-11-11] MEDS ORDERED: ACETAMINOPHEN 1000 MG/100 ML IV STA (22:34)
--- OUTSIDE RECORDS SUMMARY | 2018-11-11 22:34 | XMS REPORT | Clinical Summary ---
Author Author [facility] Organization [facility] Address Unknown Phone Unavailable Care Team Providers Care Sanitation Superintendent Name Role Phone PCP Unavailable Allergies Comments [...] Encounters Care Team Description Date Type Specialty Bob Back MD Shepard, Justin E, MD Pseudoseizure (Primary Dx); Convulsions, unspecified convulsion type 11/11/2018 Emergency Emergency Medicine 11/11/2018 Travel Adali Muro PA Irregular periods (Primary Dx) 06/23/2018 Emergency Emergency Medicine Pelvic pain in female (Primary Dx) 06/05/2018 Emergency Emergency Medicine - 06/06/2018 after 11/10/2017 Immunizations Name Dates Previously Given Next Due [...] Vital Signs Time Taken Vital Sign Reading 11/11/2018 6:35 PM CDT Blood Pressure 134/87 11/11/2018 6:35 PM CDT Pulse 92 11/11/2018 6:35 PM CDT Temperature 36.8 C (98.3 F) 11/11/2018 6:35 PM CDT Respiratory Rate 18 11/11/2018 6:35 PM CDT Oxygen Saturation 99% - Inhaled Oxygen - Concentration - Weight - - Height - - Body Mass Index - Plan of Treatment Health Maintenance Due Date Last Done Comments Cervical Cancer Scrn (3 2016 Yrs) IMM Influenza Seasonal 06/01/2018 Oct to October (>/=19 yrs) Procedures Comments Procedure Name Priority Date/Time Associated Diagnosis POCT URINE DIPSTICK - STAT 11/11/2018 5:30 PM CDT URINE DRUG SCREEN STAT 11/11/2018 5:20 PM CDT UA CHEMISTRIES STAT 11/11/2018 5:20 PM CDT XRAY CHEST 1 VIEW STAT 11/11/2018 Pseudoseizure 2:26 PM CDT 12 LEAD EKG Routine 11/11/2018 2:06 PM CDT BMP POC Routine 11/11/2018 2:04 PM CDT CBC/DIFF STAT 11/11/2018 2:00 PM CDT HIV-1/HIV-2 ROUTINE STAT 11/11/2018 SCREENING 2:00 PM CDT TEST STAT 06/23/2018 4:26 PM CDT UA [...] SCREEN STAT 06/05/2018 1:24 PM CDT after 11/10/2017 Results * POCT URINE DIPSTICK - (11/11/2018 5:30 PM CDT) Pass Control Negative * UA CHEMISTRIES (11/11/2018 5:20 PM CDT) Only the most recent of 3 results within the time period is included. Color Straw [facility] 1 Clarity Clear [facility] 1 Spec [place] 1.009 1.001 - 1.035 [facility] 1 pH 8.0 5 - 8 [facility] 1 Protein Negative NEG [facility] 1 Glucose Negative NEG [facility] 1 Ketone Negative NEG [facility] 1 Bilirubin Negative NEG [facility] 1 Nitrate Negative NEG [facility] 1 Urobilinogen <1.0 0.2 - 1.0 EU/dL [facility] 1 Leukocyte Negative NEG [facility] 1 Blood Negative NEG [facility] 1 Specimen Urine Performing Organization Address City/State/Zipcode Phone Number [facility] MAIN-STATION 1 * URINE DRUG SCREEN (11/11/2018 5:20 PM CDT) Amphetamine Negative NEG [facility] Comment: MAIN-STATION 1 Calibrated Standard: D-Methamphetamine Positive if urine level >kj=6544 ng/mL Test performed on [id number] using EMIT Immunoassay Barbiturate Negative NEG [facility] Comment: MAIN-STATION 1 Calibrated Standard: Secobarbital Positive if urine level is >wl=037 ng/mL Test performed on [id number] using EMIT Immunoassay Benzodiazepine Positive (A) NEG [facility] Comment: MAIN-STATION 1 Calibrated Standard: Lormethazepam Positive if urine level is >zi=531 ng/mL Test performed on [id number] using EMIT Immunoassay Cannabinoid Negative NEG [facility] Comment: MAIN-STATION 1 Calibrated Standard: 11 nor-delta(9)-THC carboxylic a Positive if urine level >or=50 Test performed on [id number] using EMIT Immunoassay Cocaine Negative NEG [facility] Comment: MAIN-STATION 1 Calibrated Standard: Benzoylecgonine Positive if urine level >rl=092 Test performed on [id number] using EMIT Immunoassay Opiate, Ur Negative NEG [facility] Comment: MAIN-STATION 1 Calibrated Standard: Morphine Positive if urine level >gt=216 Test performed on [id number] using EMIT Immunoassay PCP Negative NEG [facility] Comment: MAIN-STATION 1 Calibrated Standard: Phencyclidine Positive if urine level >or=25 Test performed on [id number] using EMIT Immunoassay Urine Toxicology Screen results are to be used only for Medical purposes. Specimen Urine Performing Organization Address [facility] Phone Number MISYS [facility] 1 * XRAY CHEST 1 VIEW (11/11/2018 2:26 PM CDT) Impressions Performed At IMPRESSION:No acute cardiopulmonary abnormality. SMS Signed By: Cyrus Olguin MD, 11/11/2018 2:59 PM Narrative Performed At EXAM: XR CHEST 1 VIEW SMS DATE: 11/11/2018 2:26 PM INDICATION: AMS, seizure. Pseudoseizure COMPARISON: None TECHNIQUE: AP chest FINDINGS: Lines, tubes and hardware: None. Lungs and pleura: No pulmonary or pleural based abnormality is identified. Pulmonary vascularity is normal. Heart and mediastinum: The heart size is normal for technique.The mediastinal contours are normal. Bones: Dextrocurvature of the thoracic spine may be positional. Procedure Note Interface, Rad/Mammog In - 11/11/2018 3:05 PM CDT EXAM: XR CHEST 1 VIEW DATE: 11/11/2018 2:26 PM INDICATION: AMS, seizure. Pseudoseizure COMPARISON: None TECHNIQUE: AP chest FINDINGS: Lines, tubes and hardware: None. Lungs and pleura: No pulmonary or pleural based abnormality is identified. Pulmonary vascularity is normal. Heart and mediastinum: The heart size is normal for technique. The mediastinal contours are normal. Bones: Dextrocurvature of the thoracic spine may be positional. IMPRESSION IMPRESSION: No acute cardiopulmonary abnormality. 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 CO2 POC 28 21 - 32 mmol/L [facility] MAIN-STATION 1 Chloride POC 101 98 - 107 mmol/L [facility] MAIN-STATION 1 Potassium POC 4.2 3.50 - 5.10 mmol/L [facility] MAIN-STATION 1 Sodium POC 141 136 - 145 mmol/L [facility] MAIN-STATION 1 Glucose POC 102 74 - 106 mg/dL [facility] MAIN-STATION 1 Urea Nitrogen 5 (L) 7 - 18 mg/dL [facility] POC MAIN-STATION 1 Creatinine POC 0.7 0.6 - 1.3 mg/dL [facility] MAIN-STATION 1 Calcium Ionized 1.13 (L) 1.15 - 1.29 mmol/L [facility] POC MAIN-STATION 1 Hemoglobin POC 15.3 12.0 - 16.0 g/dL [facility] MAIN-STATION 1 Hematocrit POC 45.0 37.0 - 47.0 % [facility] MAIN-STATION 1 GFR, Estimated >60 mL/min/1.73 m2 [facility] MAIN-STATION 1 GFR, Estim, >60 mL/min/1.73 m2 [facility] Afr-Am MAIN-STATION 1 Performing Organization Address [facility]/[place] Phone Number MISYS [facility] MAIN-STATION 1 * HIV-1/HIV-2 ROUTINE SCREENING (11/11/2018 2:00 PM CDT) Only the most recent of 3 results within the time period is included. HIV-1/HIV-2 Negative NEG [facility]IN-STATION 4 Performing Organization Address [facility]/Zipcode Phone Number MISYS [facility] MAIN-STATION 4 * CBC/DIFF (11/11/2018 2:00 PM CDT) Only the most recent of 3 results within the time period is included. WBC 5.5 4.5 - 11.0 K/uL [facility] MAIN-STATION 2 RBC 4.48 4.20 - 5.40 M/uL [facility] MAIN-STATION 2 Hemoglobin 13.2 12.0 - 16.0 g/dL [facility] 2 Hematocrit 41.0 37.0 - 47.0 % [facility] 2 MCV 92 82 - 92 fL [facility] 2 MCH 29.5 27.0 - 32.0 pg [facility] 2 MCHC 32.2 32.0 - 36.0 g/dL [facility] 2 RDW 48.8 (H) 36.4 - 46.3 fL [facility] 2 Platelet 278 150 - 400 K/uL [facility] 2 Mean Platelet 11.5 9.4 - 12.4 fL [facility] Volume [facility] 2 Percent NRBC 0.0 [facility] 2 Absolute NRBC 0.00 [facility] 2 Neutrophil 59.9 34.0 - 70.0 % [facility] 2 Lymphocyte 25.7 20.0 - 50.0 % [facility] 2 Monocyte 12.9 (H) 5.0 - 12.0 % [facility] 2 Eosinophil 0.7 0.7 - 5.0 % [facility] 2 Basophil 0.4 0.1 - 1.2 % [facility] 2 Pct Immat Gran 0.4 0.0 - 0.5 [facility]ST[facility] 2 Neutrophil, Abs 3.31 1.56 - 6.13 K/uL [facility] 2 Lymphocyte, Abs 1.42 1.18 - 3.74 K/uL [facility] 2 Monocyte, Abs 0.71 (H) 0.24 - 0.36 K/uL [facility] 2 Eosinophil, Abs 0.04 0.04 - 0.36 K/uL [facility] 2 Basophil, Abs 0.02 0.01 - 0.08 K/uL [facility] 2 Absol Immat 0.02 0.00 - 0.03 K/uL [facility] Gran MAIN-STATION 2 Specimen Blood Performing Organization Address City/State/Zipcode Phone Number MISYS [facility] MAIN-STATION 2 * TEST (06/23/2018 4:26 PM CDT) Negative [facility] MAIN-STATION 3 Specimen Urine Performing Organization Address City/State/Zipcode Phone Number MISYS [facility] MAIN-STATION 3 * U/S PELVIS LTD NON-OB (06/05/2018 7:05 PM CDT) Impressions Performed At IMPRESSION: SMS Unremarkable pelvic ultrasound exam. Dictated By: Brandon Duarte MD, 06/05/2018 7:26 PM I have reviewed the study and agree with the findings in this report. Signed By: Igor Lui MD, 06/05/2018 8:24 PM Narrative Performed At EXAM: Transabdominal and Transvaginal Pelvic Ultrasound [facility] INDICATION: pelvic pain COMPARISON: Pelvic [...] At EXAM: Transabdominal and Transvaginal Pelvic Ultrasound [facility] INDICATION: pelvic pain COMPARISON: Pelvic [...] MD, 06/05/2018 8:24 PM Performing Organization Address [facility]/[place] Phone Number SMS * HCG, QUANTITATIVE (06/05/2018 1:59 PM CDT) hCG, <1 <5 mIU/mL [facility] MAIN-STATION Quantitative 1 Specimen Blood Performing Organization Address [facility] Phone Number MISYS [facility] MAIN-STATION 1 * [...] 1 Specimen Blood Performing Organization Address [facility]/[place] Phone Number MISYS [facility] MAIN-STATION 1 * LIPASE (06/05/2018 1:59 PM CDT) Lipase 34 11 - 82 U/L [facility] MAIN-STATION 1 Specimen Blood Performing Organization Address City/State/Zipcode Phone Number MISYS [facility] MAIN-STATION 1 after 11/10/2017 Insurance Type Payer Benefit Subscriber ID Effective Phone Address Plan / Dates Group [facility] SELF-PAY [facility] xxxxxxxxx 2015- [phone] [id number] [place] [address] (Work)
--- OUTSIDE RECORDS SUMMARY | 2018-11-11 22:34 | XMS REPORT ---
Author Author [facility] Organization [facility] Address Unknown Phone Unavailable Care Team Providers Care Servicing Manager Name Role Phone Mary SHEEHAN Unavailable Unavailable Radha ARTEAGA Unavailable Unavailable Payers Payer Name Policy Type [...] Clinicians Care Facility Care Department Encounter ID 2018-11-11 14:18:52 2018-11-11 14:18:52 Emergency [facility] [id number] 2018-11-11 13:50:50 2018-11-11 13:50:[address] [facility] [id number] 2018-06-23 16:23:05 2018-06-23 16:23:[address] [facility] [id number] 2018-06-05 18:01:44 2018-06-05 18:01:44 Outpatient [facility] [id number] 2018-06-05 13:15:00 2018-06-05 13:15:00 Emergency [facility] [id number] Results Test Description Test Time Test Comments Text Results Atomic Results Result Comments CHEST 2 VIEWS 2018-11-10 01:06:00 [facility] [address], [place] [address] Patient Name: MARICARMEN CONSTANTINO MR #: [id number] : 1995 Age/Sex: 23/F Req #: [id number] Adm Physician: Ordered by: ALLEGRA SHEEHAN MD Report #: [id number] Location: ER Room/Bed: Procedure: [id number] DX/CHEST 2 VIEWS Exam Date: 11/10/18 Exam Time: 0050 REPORT STATUS: Signed EXAMINATION: CHEST 2 VIEWS INDICATION: Cough. COMPARISON: None FINDINGS: TUBES and LINES: None. LUNGS: Lungs are well inflated. Lungs are clear. There is no evidence of pneumonia or pulmonary edema. PLEURA: No pleural effusion or pneumothorax. HEART AND MEDIASTINUM: The cardiomediastinal silhouette is unremarkable. BONES AND SOFT TISSUES: No acute osseous lesion. Soft tissues are unremarkable. UPPER ABDOMEN: No free air under the diaphragm. IMPRESSION: No acute thoracic abnormality. Signed by: Dr. Griffin Howell M.D. on 11/10/2018 1:06 AM Dictated By: NIRMALA HOWELL MD, MD 5 Transcribed By: MARY ANNE on 11/10/18105 COPY TO: ALLEGRA SHEEHAN MD CT ABDOMEN/PELVIS W 2018-10-12 17:38:00 [facility] [address], [place] [address] Patient Name: MARICARMEN CONSTANTINO MR #: [id number] : 1995 Age/Sex: 23/F Req #: [id number] Adm Physician: Ordered by: CHAI ARTEAGA MD Report #: [id number] Location: ER Room/Bed: Procedure: [id number] CT/CT ABDOMEN/PELVIS W Exam Date: Exam Time: REPORT STATUS: Signed EXAMINATION: CT of the abdomen and pelvis with contrast. TECH NIQUE: Helical CT images of the abdomen and pelvis were performed from the lung bases to the lesser trochanters after the intravenous administration of 150 cc of Isovue 300 and the oral administration of Redicat. Coronal and sagittal reformatted images were obtained.Dose modulation, iterative reconstruction, and/or weight based adjustment of the mA/kV was utilized to reduce the radiation dose to as low as reasonably achievable. COMPARISON: None. CLINICAL HISTORY:Abdominal pain DISCUSSION: ABDOMEN/PELVIS: LOWER THORAX:Unremarkable. HEPATOBILIARY: 2.4 cm area of enhancement in the inferior liver right hepatic lobe. No intra-or extrahepatic biliary ductal dilation. The gallbladder is normal. SPLEEN: 1 cm hypodensity in the spleen. No cyst splenomegaly. PANCREAS: No focal masses or ductal dilatation. ADRENALS: No adrenal nodules. KIDNEYS/URETERS: No hydronephrosis, stones, or solid mass lesions. PELVIC ORGANS/BLADDER: The bladder is normal. PERITONEUM/RETROPERITONEUM: No free air or fluid. LYMPH NODES: No intra-abdominal, retroperitoneal, pelvic or inguinal lymphadenopathy. VESSELS: The celiac trunk,superior and inferior mesenteric and bilateral renal arteries are patent The portal, superior mesenteric and splenic veins are patent. GI TRACT: No distention or wall thickening. BONES AND SOFT TISSUE: No bony destructive lesions. No soft tissue abnormalities. IMPRESSION: No acute CT finding. 2.4 cm enhancing lesion in the inferior right hepatic lobe may reflect hemangioma or adenoma. Signed by: Dr. Saeid River M.D. on 10/12/2018 5:44 PM Dictated By: SAEID RIVER MD [id number] Transcribed By: MARY ANNE on 10/12/18 4420 COPY TO: CHAI ARTEAGA MD
--- OUTSIDE RECORDS SUMMARY | 2018-11-11 22:34 | XMS REPORT | Clinical Summary ---
Author Author [facility] Address Unknown Phone Unavailable Care Team Providers Care Dope Heater Name Role Phone Provider, Unknown PCP Unavailable [...] (Primary Dx) 05/07/2018 Emergency Emergency Medicine after 11/10/2017 Social History Date Tobacco Use Types Packs/Day [...] PANEL STAT 05/07/2018 2:47 PM CDT after 11/10/2017 Results * CT Head Wo Contrast (05/07/2018 3:03 PM CDT) Narrative Performed At EXAMINATION:CT HEAD WO CONTRAST [facility] IMAGING WAS PERFORMED WITH ITERATIVE RECONSTRUCTION [...] demonstrated nor change from the prior study. [facility]-[id number] Procedure Note Interface, Radiology Results Incoming - [...] demonstrated nor change from the prior study. [facility]-[id number] Performing Organization Address City/State/Zipcode Phone Number [facility] [address] [place] [address] * Estimated GFR (05/07/2018 2:47 PM CDT) GFR Non Af Amer 89 mL/min/1.73 m2 [facility] DEPARTMENT OF PATHOLOGY AND GENOMIC MEDICINE GFR Af Amer >90 mL/min/1.73 m2 [facility] DEPARTMENT OF Comment: PATHOLOGY [...] Specimen Plasma specimen Performing Organization Address City/[facility] [place] [address] PATHOLOGY AND [employer] MEDICINE * hCG qualitative, serum screen (05/07/2018 2:47 PM CDT) hCG qualitative, serum Negative [facility] DEPARTMENT OF Comment: PATHOLOGY AND The manufacturers stated [employer] MEDICINE sensitivity of HcG test for serum is >/=10 mIU/ml and urine is >/=20mIU/ml. Specimen Blood Performing Organization Address [facility] [place] [address] PATHOLOGY AND [employer] MEDICINE * Basic metabolic panel (05/07/2018 2:47 PM CDT) Sodium 140 135 - 150 mEq/L [facility] DEPARTMENT OF PATHOLOGY AND [employer] MEDICINE Potassium 3.8 3.5 - 5.0 mEq/L [facility] DEPARTMENT OF PATHOLOGY AND [employer] MEDICINE Chloride 99 98 - 112 mEq/L [facility] DEPARTMENT OF PATHOLOGY AND [employer] MEDICINE CO2 27 24 - 31 mmol/L [facility] DEPARTMENT OF PATHOLOGY AND [employer] MEDICINE Anion gap 14@ANIO 7 - 15 mEq/L [facility] DEPARTMENT OF PATHOLOGY AND [employer] MEDICINE BUN 9 7 - 18 mg/dL [facility] DEPARTMENT OF PATHOLOGY AND [employer] MEDICINE Creatinine 0.80 0.50 - 0.90 mg/dL [facility] DEPARTMENT OF PATHOLOGY AND [employer] MEDICINE Glucose 79 65 - 100 mg/dL [facility] DEPARTMENT OF PATHOLOGY AND [employer] MEDICINE Calcium 10.0 8.3 - 10.2 mg/dL [facility] OF PATHOLOGY AND [employer] MEDICINE Specimen Plasma specimen Performing Organization Address City/[facility] [place] [address] PATHOLOGY AND [employer] MEDICINE after 11/10/2017 Advance Directives Patient has advance care planning documents on file. For more information, nolvia quinones contact: Wood Boyle [address] [facility] [place] [address]
[2018-11-11] MEDS ORDERED: ACETAMINOPHEN 1000 MG/100 ML 100 ML IV ONE (22:39)
[2018-11-11] MEDS ORDERED: LEVOFLOXACIN 500MG/D5W 100ML 100 ML IV STA (22:40)
[2018-11-11] MEDS ORDERED: SODIUM CHLORIDE 0.9% 1000ML 1,000 ML IV ONE (22:45)
[2018-11-11 22:59] LABS: BASOPHILS % 0.4 % (0.0-1.0); EOSINOPHILS % 0.6 % (0.0-6.0); HEMATOCRIT 40.5 % (34.2-44.1); HEMOGLOBIN 13.5 g/dL (12.0-16.0); LYMPHOCYTES # (AUTO) 1.5 (1.0-3.2); LYMPHOCYTES % 28.5 % (18.0-39.1); MEAN CORPUSCULAR HEMOGLOBIN 29.7 pg (28-32); MEAN CORPUSCULAR HGB CONC 33.3 g/dL (31-35); MONOCYTES # (AUTO) 0.7 (0.2-0.8); MONOCYTES % 14.3 % (4.4-11.3); NEUTROPHILS # (AUTO) 2.9 (2.1-6.9); PLATELET COUNT 277 x10e3/uL (140-360); RED BLOOD COUNT 4.54 x10e6/uL (3.6-5.1); RED CELL DISTRIBUTION WIDTH 14.2 % (11.7-14.4)
[2018-11-11 23:11] LABS: AMPHETAMINES SCREEN,URINE NEGATIVE (NEGATIVE); BENZODIAZEPINES SCREEN,URINE NEGATIVE (NEGATIVE); PHENCYCLIDINE SCREEN,URINE NEGATIVE (NEGATIVE)
[2018-11-11 23:12] LABS: CLARITY,URINE SL CLOUDY (CLEAR); COLOR,URINE YELLOW (YELLOW); KETONES,URINE NEGATIVE (NEGATIVE); LEUKOCYTE ESTERASE ,URINE 1+ (NEGATIVE); NITRITE,URINE NEGATIVE (NEGATIVE); PREGNANCY TEST, URINE NEGATIVE (NEGATIVE); PROTEIN,URINE DIPSTICK NEGATIVE (NEGATIVE); URINE UROBILINOGEN 0.2 mg/dL (0.2 - 1)
[2018-11-11 23:13] LABS: BILIRUBIN,URINE NEGATIVE (NEGATIVE)
[2018-11-11 23:17] LABS: ALANINE AMINOTRANSFERASE 13 IU/L (0-55); ALKALINE PHOSPHATASE 69 IU/L (40-150); ANION GAP 13.4 mmol/L (8-16); BLOOD UREA NITROGEN 5 mg/dL (7-26); BUN/CREATININE RATIO 6 (6-25); CALCIUM 9.2 mg/dL (8.4-10.2); CARBON DIOXIDE 24 mmol/L (22-29); CHLORIDE 98 mmol/L (98-107); EST GLOMERULAR FILTRATION RATE > 60 ML/MIN (60-); GLUCOSE 107 mg/dL (74-118); POTASSIUM 3.4 mmol/L (3.5-5.1); SODIUM 132 mmol/L (136-145)
--- NOTE | 2018-11-11 23:21 | Diagnostic Imaging Report ---
EXAMINATION: CHEST SINGLE (PORTABLE) INDICATION: Fever. Status epilepticus. COMPARISON: 11/10/2018 at 052:00 AM FINDINGS: TUBES and LINES: None. LUNGS: Lungs are hypoinflated. Bibasilar subsegmental atelectasis. There is no evidence of pneumonia or pulmonary edema. PLEURA: No pleural effusion or pneumothorax. HEART AND MEDIASTINUM: The cardiomediastinal silhouette is unremarkable. BONES AND SOFT TISSUES: No acute osseous lesion. Soft tissues are unremarkable. UPPER ABDOMEN: No free air under the diaphragm. IMPRESSION: Bibasilar subsegmental atelectasis Signed by: Dr. Griffin Rowland M.D. on 11/11/2018 11:18 PM
[2018-11-11 23:23] LABS: BACTERIA,URINE FEW /HPF; EPITHELIAL CELLS,URINE MANY /LPF
[2018-11-11 23:27] LABS: MEAN CORPUSCULAR VOLUME 89.2 fL (81-99)
[2018-11-11 23:58] VITALS: BP 127/66
== END 2018-11-12 00:10 | disposition home or self-care (01) ==
LOC: ER 22:31
DX: R50.9 Fever, unspecified (principal); J11.1 Influenza due to unidentified influenza virus with other respiratory manifestations; N30.91 Cystitis, unspecified with hematuria; F44.5 Conversion disorder with seizures or convulsions
CPT/HCPCS: 36415; 71045; 80053; 80307; 81001; 81025; 85025; 87040; 87071; 87086; 87205; 87400; 99284; J0131; J1956; J7030